=== PATIENT | female | born 1995 | race Caucasian/White ===

== ENCOUNTER 2019-09-13 14:58 | Emergency (ER) | payer OTHER, SELFPAY ==
--- NOTE | ~2019-09-13 | CT_ITS ---
EXAMINATION: CT abdomen pelvis w con DATE: 09/13/2019 16:24 INDICATION: Left lower quadrant abdominal pain, nausea, diarrhea TECHNIQUE: Computed tomography (CT) of the abdomen and pelvis was performed with 100 cc Omnipaque 350 intravenous contrast. Automated exposure control and iterative reconstruction technique were employe d. Exam dose: 1568.25 mGy-cm total exam DLP. COMPARISON: None. FINDINGS: The lung bases are clear of infiltrate or consolidation. Normal heart size. No pericardial or pleural effusion. The liver, spleen, pancreas, and adrenal glands and kidneys appear normal. The gallbladder is present . No bile duct or pancreatic duct dilatation. No urinary tract calculus or hydroureteronephrosis is e vident. The urinary bladder, uterus and adnexal areas are unremarkable. Normal caliber of the abdominal aorta. No intraperitoneal or retroperitoneal or pelvic mass lesion or adenopathy or ascites. Normal appendix. No bowel obstruction or intraperitoneal free air. No bowel wall thickening or pneuma tosis. Small fat-containing umbilical hernia. Included skeletal structures are unremarkable. IMPRESSION: No significant abnormality. Normal appendix. Reviewed, dictated and finalized at [facility]. Reviewed, dictated and finalized at [facility].
[2019-09-13 15:05] VITALS: BP 148/91; PULSE 86; RESP 18; TEMP 36.8; O2SAT 100
[2019-09-13 15:24] LABS: Basophils Percent Auto 0.3 % (0.2-1.2); Eosinophils Absolute Auto 0.2 K/mm3 (0-0.3); Eosinophils Percent Auto 1.3 % (0-4.4); Hemoglobin 15.7 g/dL (12.0-15.0); Immature Granulocyte Absolute 0.08 K/mm3 (0.00-0.031); Immature Granulocyte Percent A 0.7 % (0-0.5); Lymphocytes Absolute Auto 2.79 K/mm3 (0.9-3.2); Mean Corpuscular HGB Conc 33.4 g/dl (32-36); Mean Corpuscular Hemoglobin 28.6 pg (26-34); Mean Corpuscular Volume 85.6 fl (80-100); Mean Platelet Volume 9.8 fl (7.4-10.4); Monocytes Absolute Auto 0.7 K/mm3 (0.1-0.6); Monocytes Percent Auto 5.5 % (2.6-8.5); Neutrophils Absolute Auto 8.4 K/mm3 (1.3-6.7); Neutrophils Percent Auto 69.2 % (45.5-73.1); Platelet Count Result 359 k/mm3 (150-375); Red Blood Count 5.49 M/mm3 (4.2-5.4); Red Cell Distribution Width 12.8 % (11.5-14.5); White Blood Count 12.1 K/mm3 (4.5-10.0)
--- NOTE | 2019-09-13 15:28 | ED.ABDPAIN ---
HPI - Abdominal Pain General Chief Complaint: Abdominal Pain Stated Complaint: abd pain Time Seen by Provider: 09/13/19 15:11 Source: patient Mode of arrival: ambulatory Limitations: no limitations History of Present Illness HPI narrative: THis patient is a 24 year old female who presents for evaluation of left lower abdominal pain. She developed pain yesterday. She states her pain occurs in waves and it is located left upper and left lower abdomen. She has tried taking tylenol and midol without improvement. Currently her pain is 4/10. She has associated nausea and diarrhea. She has had 5 episodes of watery , nonbloody diarrhea since this morning. She denies fever or chills. She denies urinary symptoms. She does have lightheadedness. MD elicited complaint: abdominal pain Related Data Allergies Allergy/AdvReac Type Severity Reaction Status Date / Time No Known Allergies Allergy Verified 09/13/19 15:12 Review of Systems Review of Systems: All systems reviewed & are unremarkable except as noted in HPI and below Constitutional: Constitutional: Denies chills, Denies fever(s) and Reports weakness Gastrointestinal: Gastrointestinal: Reports abdominal pain, Reports diarrhea and Reports nausea Genitourinary: Genitourinary: Denies hematuria, Denies dysuria and Denies urinary incontinence Endocrine: Endocrine: Reports fatigue PMFSH Past Medical History Medical History (Updated 09/13/19 @ 17:53 by Nelli Fuentes MD) PCOS (polycystic ovarian syndrome) Surgical History Surgical History (Updated 09/13/19 @ 15:30 by Nelli Fuentes MD) No significant past surgical history Social History Social History (Updated 09/13/19 @ 15:30 by Nelli Fuentes MD) Smoking packs per day: 0.5 Smoking cigarettes per day: 10.0 Smoking status: Current every day smoker Alcohol intake: current Alcohol use details: socially Substance use type: marijuana Exam Narrative: Exam Narrative: GENERAL: Well-appearing, well-nourished, and in no acute distress. HEAD: Normocephalic, atraumatic EYES: PERRLA and EOMI, conjunctiva clear without discharge NECK: Supple, without lymphadenopathy or mass RESPIRATORY: No respiratory distress, Airway patent, Respirations non-labored, Clear to auscultation without rales, rhonchi or wheeze HEART: Regular rate and rhythm. No murmur heard. Normal peripheral pulses. ABDOMEN: Soft, TTP left lower abdominal pain, nondistended, normal active bowel sounds. No masses. No rebound or guarding, No organomegaly. EXTREMITIES: No edema, normal strength with full range of motion. SKIN: Warm, dry, normal color without rash NEURO: Alert and oriented x3. CN 2-12 grossly intact. No focal deficits. PSYCH: Normal mood and affect. Course Vital Signs Vital signs: Vital Signs Temperature 98.3 F 09/13/19 15:05 Pulse Rate 86 09/13/19 15:05 Respiratory Rate 18 09/13/19 15:05 Blood Pressure 148/91 H 09/13/19 15:05 Pulse Oximetry 100 09/13/19 15:05 Temperature 98.3 F 09/13/19 15:05 Pulse Rate 88 09/13/19 18:17 Respiratory Rate 18 09/13/19 18:17 Blood Pressure 114/74 09/13/19 18:17 Pulse Oximetry 100 09/13/19 15:05 MDM - Abdominal Pain Lab Data Attestation: I reviewed the patient's lab results. Result diagrams: 09/13/19 15:11 09/13/19 15:11 Labs: Lab Results 09/13/19 09/13/19 09/13/19 Range/Units 15:11 15:11 15:11 WBC 12.1 H (4.5-10.0) K/mm3 RBC 5.49 H (4.2-5.4) M/mm3 Hgb 15.7 H (12.0-15.0) g/dL Hct 47.0 (37.0-47.0) % MCV 85.6 (80-100) fl MCH 28.6 (26-34) pg MCHC 33.4 (32-36) g/dl RDW 12.8 (11.5-14.5) % Plt Count 359 (150-375) k/mm3 MPV 9.8 (7.4-10.4) fl Immature Gran % (Auto) 0.7 H (0-0.5) % Neut % (Auto) 69.2 (45.5-73.1) % Lymph % (Auto) 23.0 (18.3-44.2) % [place] % (Auto) 5.5 (2.6-8.5) % Eos % (Auto) 1.3 (0-4.4) % Baso % (Auto) 0
[2019-09-13 15:29] LABS: Add Urine Microscopic? YES; Amorphous Sediment Urine Few; Appearance Urine Cloudy (Clear); Bacteria Urine Trace /hpf; Bilirubin Urine Negative (Negative); Blood Urine 2+ (Negative); Color Urine Yellow (Yellow); Glucose Urine UA Negative (Negative); Ketones Urine Negative (Negative); Leukocyte Esterase Ur Negative LEU/UL (Negative); Mucus Urine Rare /lpf; Nitrate Urine Negative (Negative); Protein Urine Negative (Negative); Squamous Epithelial Cell Urine Many /hpf (Few); Urobilinogen Urine Negative mg/dL (<2.0)
[2019-09-13 15:36] LABS: Alanine Aminotransferase 50 U/L (4-35); Albumin Level 4.8 g/dL (3.5-5.1); Alkaline Phosphatase 104 U/L (38-126); Aspartate Amino Transferase 32 U/L (14-36); Bilirubin,Total 0.5 mg/dL (0.2-1.3); Blood Urea Nitrogen 13 mg/dL (7-17); Calcium 9.7 mg/dL (8.4-10.2); Carbon Dioxide 29 mmol/L (22-30); Chloride 101 mmol/L (98-107); Estimated CRCL calculation 143 ml/min; Estimated Glomerular Filt Rate > 60; Glucose 95 mg/dL (65-105); Lipase 93 U/L (23-300); Potassium 3.9 mmol/L (3.4-5.0); Sodium 138 mmol/L (137-145)
[2019-09-13] MEDS: SODIUM CHLORIDE 0.9% IV 1,000 ML 999 ML IV CONT (15:40)
[2019-09-13] MEDS: ONDANSETRON INJ 4 MG/2 ML VIAL IV PUSH (15:40)
[2019-09-13 16:10] VITALS: BP 118/65; PULSE 69
[2019-09-13 16:11] VITALS: BP 122/67; PULSE 69
[2019-09-13 16:12] VITALS: BP 119/72; PULSE 74
[2019-09-13 17:13] VITALS: BP 155/65; PULSE 91
[2019-09-13 18:17] VITALS: BP 114/74; PULSE 88; RESP 18
== END 2019-09-13 18:18 | disposition home or self-care (01) ==
PROVIDERS: Emergency Provider General Practice
DX: R10.32 Left lower quadrant pain (principal); R19.7 Diarrhea, unspecified; F17.210 Nicotine dependence, cigarettes, uncomplicated
CPT/HCPCS: 36415; 74177; 80053; 81001; 81025; 83690; 85025; 96361; 96374; 99284; J2405; J7030; Q9967

== ENCOUNTER 2024-08-28 15:37 | Emergency (ER) | payer OTHER, SELFPAY ==
[2024-08-28 15:39] VITALS: BP 144/87; PULSE 93; RESP 16; TEMP 36.6; O2SAT 98
--- OUTSIDE RECORDS SUMMARY | 2024-08-28 15:40 | XMS_ITS | Patient Health Record ---
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 G47.00) 03/08/2024 ADHD (attention deficit hyperactivity disorder) (ICD-10 - F90.9) 01/28/2024 Insomnia (ICD-10 - G47.00) 11/26/2023 Nutritional counseling (ICD-10 - Z71.3) 12/23/2023 Insomnia (ICD-10 - G47.00) 10/28/2023 Insomnia (ICD-10 - G47.00) 10/21/2023 Insomnia (ICD-10 - G47.00) 10/14/2023 Insomnia (ICD-10 - G47.00) 10/01/2023 Insomnia (ICD-10 - G47.00) 11/26/2023 Medication management (ICD-10 - Z79.899) Continue psychotherapy as scheduled. May self-administer medications or be administered own oral medications per [facility] protocols. Provided informed consent with understanding of side effects, adverse effects, risks and benefits as well as alternative treatments as previously discussed and with the above recommended medications & other aspects of the treatment program. Agrees to return sooner if symptoms worsen or suicidal or homicidal ideations occur. 01/28/2024 Nutritional counseling (ICD-10 - Z71.3) 12/23/2023 Nutritional counseling (ICD-10 - Z71.3) 03/29/2024 Nutritional counseling (ICD-10 - Z71.3) 05/17/2024 Screening for hyperlipidemia (ICD-10 - Z13.220) 06/23/2024 Medication management (ICD-10 - Z79.899) May self-administer medications or be administered own oral medications per [facility] protocols. Provided informed consent with understanding of side effects, adverse effects, risks and benefits as well as alternative treatments as previously discussed and with the above recommended medications & other aspects of the treatment program. Agrees to return sooner if symptoms worsen or suicidal or homicidal ideations occur. Continue psychotherapy as scheduled. May self-administer medications or be administered own oral medications per [facility] protocols. Provided informed consent with understanding of side effects, adverse effects, risks and benefits as well as alternative treatments as previously discussed and with the above recommended medications & other aspects of the treatment program. Agrees to return sooner if symptoms worsen or suicidal or homicidal ideations occur. Labs monitored by PCP. 05/17/2024 Exposure to potential infection (ICD-10 - Z20.9) 06/23/2024 Nutritional counseling (ICD-10 - Z71.3) 03/29/2024 Medication management (ICD-10 - Z79.899) Continue psychotherapy as scheduled. May self-administer medications or be administered own oral medications per [facility] protocols. Provided informed consent with understanding of side effects, adverse effects, risks and benefits as well as alternative treatments as previously discussed and with the above recommended medications & other aspects of the treatment program. Agrees to return sooner if symptoms worsen or suicidal or homicidal ideations occur. 01/28/2024 Medication management (ICD-10 - Z79.899) Continue psychotherapy as scheduled. May self-administer medications or be administered own oral medications per [facility] protocols. Provided informed consent with understanding of side effects, adverse effects, risks and benefits as well as alternative treatments as previously discussed and with the above recommended medications & other aspects of the treatment program. Agrees to return sooner if symptoms worsen or suicidal or homicidal ideations occur. 12/23/2023 Medication management (ICD-10 - Z79.899) Continue psychotherapy as scheduled. May self-administer medications or be administered own oral medications per [facility] protocols. Provided informed consent with understanding of side effects, adverse effects, risks and benefits as well as alternative treatments as previously discussed and with the above recommended medications & other aspects of the treatment program. Agrees to return sooner if symptoms worsen or suicidal or homicidal ideations occur. 05/17/2024 History of uterine cancer (ICD-10 - Z85.42) 05/17/2024 Cocaine use disorder (ICD-10 - F14.10) 09/10/2023 Other Continue psychotherapy as scheduled. May self-administer medications or be administered own oral medications per [facility] protocols. Provided informed consent with understanding of side effects, adverse effects, risks and benefits as well as alternative treatments as previously discussed and with the above recommended medications & other aspects of the treatment program. Agrees to return sooner if symptoms worsen or suicidal or homicidal ideations occur. 10/01/2023 Other Continue psychotherapy as scheduled. May self-administer medications or be administered own oral medications per [facility] protocols. Provided informed consent with understanding of side effects, adverse effects, risks and benefits as well as alternative treatments as previously discussed and with the above recommended medications & other aspects of the treatment program. Agrees to return sooner if symptoms worsen or suicidal or homicidal ideations occur. 10/28/2023 Other Continue psychotherapy as scheduled. May self-administer medications or be administered own oral medications per [facility] protocols. Provided informed consent with understanding of side effects, adverse effects, risks and benefits as well as alternative treatments as previously discussed and with the above recommended medications & other aspects of the treatment program. Agrees to return sooner if symptoms worsen or suicidal or homicidal ideations occur. 05/17/2024 Other Patient may self-administer their own medications or may self-administer their own oral medications per [facility] Protocol. Plan Of Treatment Future Test Test Name Order Date TSH Rfx on Abnormal to Free T4 1 Insurance Providers Payer Name Payer Address Payer Phone Subscriber Number Group Number Insured Name Patient Relationship to Insured Coverage Start Date [facility]age End [facility] [address] [place] [address] [phone] [id number] Hilaria Teixeira Self - patient is the insured 7 [facility] Att[facility] Claims Department [address] [place] [address] [phone] [id number] Hilaria Teixeira Self - patient is the insured 1 Medical (General) History Medical History History ICD Code obesity prediabetes dyslipidemia metabolic syndrome Mood disorder Bipolar seasonal allergies cancer-uterine Surgical History Surgery Date(Month/Year) hysterectomy 11/2022 Hospitalization History Reason Date(Month/Year) Child 04/2014
--- OUTSIDE RECORDS SUMMARY | 2024-08-28 15:40 | XMS_ITS | Data Portability ---
Author Organization [facility] [place] Address [address] [place] [address] Assessment Encounter Date Assessment Date Assessment LastModified by Organization Details LastModified Time 12/02/2022 12/02/2022 Today we discuss the following diagnosis: Hypothyroidism/D M2/Endometrial adenocarcinoma. Understanding verbalized Time spent in visit is a total of 45mins with at least 50% of visit consisting of counseling and review of plan of care. Not available 12/02/2022 14:21:16 09/02/2023 09/02/2023 Annual gynecological exam performed. Patient will come back in a year unless there are new symptoms. Wausa Weimi [place], [place] Not available 09/02/2023 15:51:01 Plan of Treatment Reminders Order Date Submit Date Provider Last Modified By Organization Details Last Modified Time Details Appointments [facility] 2024 10:00A BREANN Villasenor Not available Not available Not available Lab HbA1c (hemoglob in A1c), blood [address] (Lab), [address] [facility], [place], [address], 12/09/2023 12:34:57 TSH, serum or plasma [address] (Lab), [address] [facility], [place], [address], 10/30/2023 11:29:26 CMP, serum or plasma [address] (Lab), [address], [place], [address], 10/30/2023 11:29:25 lipid panel, blood [address] (Lab), [address], [place], [address], 10/30/2023 11:29:25 CBC w/ auto diff [address] (Lab), [address], [place], [address], 10/30/2023 11:29:25 test, urine [address], [address], [address], [place], [address], 11/26/2022 11:56:50 unlisted lab - 17-oh progester one, lc/MS/MS 2022 023 [facility] (Lab), [address] [facility], [place], [address], 11/27/2022 15:35:20 hormone panel, serum or plasma 2022 023 [facility] (Lab), [address] [facility], [place], [address], 11/27/2022 15:35:17 HbA1c (hemoglob in A1c), blood 2022 023 [facility] (Lab), [address] [facility], [place], [address], 11/27/2022 15:35:19 progester one, serum 2022 023 [facility] (Lab), [address] [facility], [place], [address], 11/27/2022 15:35:15 prolactin , serum 2022 023 [facility] (Lab), [address], [place], [address], 11/27/2022 15:35:15 testoster one free/test osterone total, ratio, serum 2022 023 [facility] (Lab), [address], [place], [address], 11/27/2022 15:35:19 TSH, serum or plasma 2022 023 [facility] (Lab), [address], [place], [address], 11/27/2022 15:35:16 vitamin B12 + folate, serum or blood 2022 023 [facility] (Lab), [address], [place], [address], 11/27/2022 15:35:19 iron + TIBC + ferritin, serum 2022 023 [facility] (Lab), [address], [place], [address], 11/27/2022 15:35:18 reticuloc yte count, auto, blood 2022 023 [facility] (Lab), [address], [place], [address], 11/27/2022 15:35:17 CBC w/ auto diff 2022 023 [facility] (Lab), [address], [place], [address], 11/27/2022 15:35:18 Referral primary care provider referral 2022 023 [email or web address] Niecy Barry MAGNETIC RESONANCE TECHNOLOGIST, [address], [place], [address], 04/08/2023 10:59:23 primary care provider referral 2022 023 [email or web address] Niecy Barry MAGNETIC RESONANCE TECHNOLOGIST, [address], [place], [address], 04/08/2023 10:59:24 gynecolog ic oncologis t referral 2022 023 [email or web address] Chris Herbert MD, [address] [facility], [address] [address], [place], [address], 04/08/2023 10:59:22 Procedures None recorded. Surgeries None recorded. Imaging US, pelvis 2022 023 [email or web address] [place], [address], [address], [place], [address], 11/20/2022 20:25:29 US, transvagi nal 2022 023 [email or web address] [place], [facility] [address], [place], [address], 11/20/2022 20:25:29 US, pelvis, complete 2022 023 [email or web address] [place], [facility] [address], [place], [address], 12/02/2022 12:53:44 Medication Orders metformin ER 500 mg tablet,ex tended release 24 hr [address] [facility], [address] [place], [address], 09/02/2023 15:27:39 levothyro xine 25 mcg tablet [address] [facility], [address] [place], [address], 09/02/2023 15:27:32 Patient TargetsNo targets recorded. Patient InstructionsNo instructions recorded. Reason for Referral Gynecologic Oncologist Refer ral for Adenocarcinoma of endometrium Referring Physician: Wendy Ferguson, [employer]STALLER, Encounter Date: 12/02/2022 Primary Care Provider Referr al for Type 2 diabetes mellitus Referring Physician: Wendy Ferguson [employer] INST[employer]ER, Encounter Date: 12/02/2022 Primary Care Provider Referr al for Hypothyroidism Referring Physician: Wendy Ferguson [employer] INSTALLER, Encounter Date: 12/02/2022 Results Created Date Observation Date Name Description Value Unit Range Abnormal Flag Note LastModifiedBy Organization Detail LastModifiedTime 11/20/19 23 11/19/2022 PROGE STERO NE progesterone 0.13 NG/mL This assay was perfo rmed using [employer] ratio n reage nts and test kits. Value s obtai dori with other assay metho ds or kits canno t be used inter luu eay . Femal e Proge stero ne Range s: Folli cular phase 0.06- 0.89 ng/mL Ovula tion phase 0.12- 12.00 ng/mL Lutea l phase 1.83- 23.90 ng/mL Postm enopa usal< 0.05- 0.13 ng/mL Healt hy Pregn ant Women 1st Trime ster1 1.0-4 4.30 2nd Trime ster2 5.40- 83.30 3rd Trime ster5 8.70- 214.0 0 Not Available [facility] (Lab) [address] [place], [address], 11/27/2022 15:35:15 11/20/19 23 11/19/2022 PROLA CTIN prolactin, total 10.90 NG/mL 4.79-2 3.30 This assay was perfo rmed using [employer] ratio n reage nts and test kits. Value s obtai dori with other assay metho ds or kits canno t be used inter luu eay . Not Available [facility] (Lab) [address] [place], [address], 11/27/2022 15:35:15 11/20/19 23 11/19/2022 TSH, REFLE X FREE T4 TSH 6.66 uIU/m L 0.30-5 .33 high Not Available [facility] (Lab) [address] [place], [address], 11/27/2022 15:35:16 11/20/19 23 11/19/2022 FSH, LH, ESTRA DIOL estradiol 34.7 pg/mL This assay was perfo rmed using [employer] ratio n reage nts and test kits. Value s obtai dori with other assay metho ds or kits canno t be used inter luu eably . Femal e Estra diol Range s: Folli cular phase 12.4- 233 pg/mL Ovula tion phase 41.0- 398 pg/mL Lutea l phase 22.3- 341 pg/mL Postm enopa usal< 5-138 pg/mL Healt hy Pregn ant Women 1st Trime ster1 54-32 43 pg/mL 2nd Trime ster1 561-2 1280 pg/mL 3rd Trime ster8 525-> 34505 pg/mL Not Available [facility] (Lab) [address] [place], [address], 11/27/2022 15:35:17 11/20/19 23 11/19/2022 FSH, LH, ESTRA DIOL FSH 4.5 mIU/m L This assay was perfo rmed using [employer] ratio n reage nts and test kits. Value s obtai dori with other assay metho ds or kits canno t be used inter [facility] eay . Femal es Folli cular : 3.5-1 2.5 mIU/m L Ovula tion: 4.7-2 1.5 mIU/m L Lutea l: 1.7-7 .7 mIU/m L Postm enopa use: 25.8- 134.8 mIU/m L Not Available [facility] (Lab) [address] [place], [address], 11/27/2022 15:35:17 11/20/19 23 11/19/2022 FSH, LH, ESTRA DIOL LH 7.6 mIU/m L This assay was perfo rmed using [employer] ratio n reage nts and test kits. Value s obtai dori with other assay metho ds or kits canno t be used inter luu eably . Femal es Mid-F ollic ular: 2.4-1 2.6 mIU/m L Mid-C ycle: 14.0- 95.6 mIU/m L Mid-L uteal : 1.0-1 1.4 mIU/m L Postm enopa use: 7.7-5 8.5 mIU/m L Not Available [facility] (Lab) [address] [facility], [place], [address], 11/27/2022 15:35:17 11/20/19 23 11/19/2022 RETIC ULOCY TE COUNT reticulocyte count percent 3.90 % 0.50-1 .50 high Not Available [facility] (Lab) [address] [facility], [place], [address], 11/27/2022 15:35:17 11/20/19 23 11/19/2022 RETIC ULOCY TE COUNT reticulocyte count absolute 158.20 10'3/ uL 23.2-7 0.7 high Not Available [facility] (Lab) [address] [facility], [place], [address], 11/27/2022 15:35:17 11/20/19 23 11/19/2022 CBC W/DIF F WBC 9.4 10'3/ uL 3.6-10 .2 Not Available [facility] (Lab) [address] [facility], [place], [address], 11/27/2022 15:35:18 11/20/19 23 11/19/2022 CBC W/DIF F RBC 4.11 10'6/ uL (based on docume nted legal sex) 4.10-5 .30 Not Available [facility] (Lab) [address] [facility], [place], [address], 11/27/2022 15:35:18 11/20/19 23 11/19/2022 CBC W/DIF F HGB 11.8 g/dL (based on docume nted legal sex) 11.9-1 5.8 low Not Available [facility] (Lab) [address], [place], [address], 11/27/2022 15:35:18 11/20/19 23 11/19/2022 CBC W/DIF F HCT 36.7 % (based on docume nted legal sex) 37.4-4 8.3 low Not Available [facility] (Lab) [address], [place], [address], 11/27/2022 15:35:18 11/20/19 23 11/19/2022 CBC W/DIF F MCV 89.3 fL 82.0-9 9.0 Not Available [facility] (Lab) [address], [place], [address], 11/27/2022 15:35:18 11/20/19 23 11/19/2022 CBC W/DIF F MCH 28.7 pg 27.0-3 3.0 Not Available [facility] (Lab) [address], [place], [address], 11/27/2022 15:35:18 11/20/19 23 11/19/2022 CBC W/DIF F MCHC 32.2 g/dL 32.0-3 6.0 Not Available [facility] (Lab) [address], [place], [address], 11/27/2022 15:35:18 11/20/19 23 11/19/2022 CBC W/DIF F RDW 13.2 % 11.0-1 5.0 Not Available [facility] (Lab) [address], [place], [address], 11/27/2022 15:35:18 11/20/19 23 11/19/2022 CBC W/DIF F plt 345 10'3/ uL 150-45 0 Not Available [facility] (Lab) [address], [place], [address], 11/27/2022 15:35:18 11/20/19 23 11/19/2022 CBC W/DIF F MPV 10.3 fL 9.8-12 .7 Not Available [facility] (Lab) [address], [place], [address], 11/27/2022 15:35:18 11/20/19 23 11/19/2022 CBC W/DIF F NRBC's 0.0 % 0 Not Available [facility] (Lab) [address], [place], [address], 11/27/2022 15:35:18 11/20/19 23 11/19/2022 CBC W/DIF F absolute NRBCs 0.0 10'3/ uL 0 Not Available [facility] (Lab) [address], [place], [address], 11/27/2022 15:35:18 11/20/19 23 11/19/2022 CBC W/DIF F neutrophils 64.4 % 37.0-7 2.0 Not Available [facility] (Lab) [address], [place], [address], 11/27/2022 15:35:18 11/20/19 23 11/19/2022 CBC W/DIF F lymphocytes 26.8 % 16.0-4 8.0 Not Available [facility] (Lab) [address], [place], [address], 11/27/2022 15:35:18 11/20/19 23 11/19/2022 CBC W/DIF F monocytes 5.0 % 4.0-14 .0 Not Available [facility] (Lab) [address], [place], [address], 11/27/2022 15:35:18 11/20/19 23 11/19/2022 CBC W/DIF F eosinophils 1.9 % 0.0-9. 0 Not Available [facility] (Lab) [address], [place], [address], 11/27/2022 15:35:18 11/20/19 23 11/19/2022 CBC W/DIF F basophils 0.4 % 0.0-2. 0 Not Available [facility] (Lab) [address] [facility], [place], [address], 11/27/2022 15:35:18 11/20/19 23 11/19/2022 CBC W/DIF F immature granulocytes 1.5 % no define d refere nce range Not Available [facility] (Lab) [address] [facility], [place], [address], 11/27/2022 15:35:18 11/20/19 23 11/19/2022 CBC W/DIF F absolute neutrophils 6.1 10'3/ uL 1.1-6. 0 high Not Available [facility] (Lab) [address] [facility], [place], [address], 11/27/2022 15:35:18 11/20/19 23 11/19/2022 CBC W/DIF F absolute lymphocytes 2.5 10'3/ uL 0.7-3. 4 Not Available [facility] (Lab) [address] [facility], [place], [address], 11/27/2022 15:35:18 11/20/19 23 11/19/2022 CBC W/DIF F absolute monocytes 0.5 10'3/ uL 0.3-1. 0 Not Available [facility] (Lab) [address] [facility], [place], [address], 11/27/2022 15:35:18 11/20/19 23 11/19/2022 CBC W/DIF F absolute eosinophils 0.2 10'3/ uL 0.0-0. 6 Not Available [facility] (Lab) [address] [facility], [place], [address], 11/27/2022 15:35:18 11/20/19 23 11/19/2022 CBC W/DIF F absolute basophils 0.0 10'3/ uL 0.0-0. 1 Not Available [facility] (Lab) [address] [facility], [place], [address], 11/27/2022 15:35:18 11/20/19 23 11/19/2022 CBC W/DIF F absolute immature granulocytes 0.1 10'3/ uL 0.00-0 .10 2022 1:59 AM: P indic ates parti al resul ts on a panel have been relea sed. Addit ional resul ts will follo w. 2022 1:59 AM: This resul t has been final verif ied. No addit ional or luu ed resul ts are expec nicola. Not Available [facility] (Lab) [address] [facility], [place], [address], 11/27/2022 15:35:18 11/20/19 23 11/19/2022 LEVON TIN / IRON / TRANS LEVON N / TIBC iron 66 ug/dL 40-170 Not Available [facility] (Lab) [address] [facility], [place], [address], 11/27/2022 15:35:18 11/20/19 23 11/19/2022 LVEON TIN / IRON / TRANS LEVON N / TIBC transferrin 282 mg/dL 200-36 0 Not Available [facility] (Lab) [address] [facility], [place], [address], 11/27/2022 15:35:18 11/20/19 23 11/19/2022 LEVON TIN / IRON / TRANS LEVON N / TIBC ferritin 65.3 NG/mL 8.0-25 2.0 Not Available [facility] (Lab) [address] [facility], [place], [address], 11/27/2022 15:35:18 11/20/19 23 11/19/2022 LEVON TIN / IRON / TRANS LEVON N / TIBC TIBC 395 ug/dL 250-45 0 Not Available [facility] (Lab) [address] [facility], [place], [address], 11/27/2022 15:35:18 11/20/19 23 11/19/2022 LEVON TIN / IRON / TRANS LEVON N / TIBC iron saturation 17 % 20-55 low Not Available [facility] (Lab) [address] [facility], [place], [address], 11/27/2022 15:35:18 11/20/19 23 11/19/2022 VITAM IN B12 / FOLAT E PANEL vitamin B12 354 pg/mL 180-91 4 Pam l Range : 180-9 14 pg/mL . Indet ermin ate Range : 145-1 80 pg/mL . Defic ient Range : <=145 pg/mL . Not Available [facility] (Lab) [address] [facility], [place], [address], 11/27/2022 15:35:18 11/20/19 23 11/19/2022 VITAM IN B12 / FOLAT E PANEL folate, serum 10.9 NG/mL 6.0-20 .0 Not Available [facility] (Lab) [address] [facility], [place], [address], 11/27/2022 15:35:18 11/20/1911/19/2022 HEMOG LOBIN A1C hemoglobin A1C 7.3 % 0-5.6 high The Ameri can Diabe anderson [employer] iatio n recom mends that a prima ry goal of thera py cassie tillman be a HBA1C of < 7% and that physi cians shoul d reeva luate the treat ment regim en in patie nts with HBA1C value s consi stent ly > 8%. <5.7% Pam l 5.7 - 6.4% Incre ased risk for diabe anderson >=6.5 % Diagn ostic of diabe anderson <7.0% Goal of thera py >8.0% Actio n sugge sted Not Available [facility] (Lab) [address] [facility], [place], [address], 11/27/2022 15:35:19 11/20/19 11/19/2022 TESTO STERO NE, FREE( DIALY SIS) AND TOTAL (LC/M S/MS) testosterone , total 26 NG/dL 2-45 For addit ional cindi chavez refer to http: //brandon jaramillo stdia ana ics.c om/fa q/Tot Miguel Schultz CMSMS (This link is being provi ded for infor pavelarsenio nal/ educa cori l purpo ses only. ) This test was devel oped and its shari tical perfo rmanc e jens cteri stics have been deter mined by [employer] ostic [employer]. It has not been clear ed or appro john by the FDA. This assay has been valid ated pursu ant to the CLIA regul ation s and is used for clini sourav purpo ses. Not Available [facility] (Lab) [address] [facility], [place], [address], 11/27/2022 15:35:19 11/20/1911/19/2022 TESTO STERO NE, FREE( DIALY SIS) AND TOTAL (LC/M S/MS) testosterone , free 5.7 pg/mL 0.1-6. 4 This test was devel oped and its shari tical perfo rmanc e jens cteri stics have been deter mined by [employer]stic [employer]. It has not been clear ed or appro john by the FDA. This assay has been valid ated pursu ant to the CLIA regul ation s and is used for clini sourav purpo ses. Perfo rming Organ izati on Isabell zhaoarsenio n: Site ID: [id number] Name: [employer] ostic s-Sur[facility] [address] [facility] Addre ss: [id number] [place] [address] Direc tor: Kalina luo M.D. Not Available [facility] (Lab) [address] [place], [address], 11/27/2022 15:35:19 11/20/19 23 11/19/2022 17-OH PROGE STERO NE 17-hydroxypr ogesterone, lc/MS/MS 41 NG/dL Adult Femal e Refer ence Range s for 17-Hy droxy proge stero ne: Pre-M enopa usal Mid Folli cular : 23-10 2 ng/dL Pre-M enopa usal Surge : 67-34 9 ng/dL Pre-M enopa usal Mid Lutea l: 139-4 31 ng/dL Postm enopa usal Phase : < or = 45 ng/dL Pregn coty: First Trime ster: 78-45 7 ng/dL Secon d Trime ster: 90-35 7 ng/dL Third Trime ster: 144-5 78 ng/dL This test was devel oped and its shari tical perfo rmanc e jens cteri stics have been deter mined by [facility] Tanana Capmykel tran . It has not been clear ed or appro john by FDA. This assay has been valid ated pursu ant to the CLIA regul ation s and is used for clini sourav purpo ses. Perfo rming Organ izati on Infor matio n: Site ID: [id number] Name: [facility] dominique [facility] , Addre ss: [id number] [facility] [place] [phone] Direc tor: Veronica koenig MD,Ph D,WILLIAM Not Available [facility] (Lab) [address] [facility], [place], [address], 11/27/2022 15:35:20 11/20/19 23 11/19/2022 pregn coty test, urine HCG negati ve Not Available [place] [address], [place], [address], 11/19/2022 14:48:22 11/27/19 23 11/26/2022 SURGI SOURAV PATHO LOGY surgical pathology SEE RESULT S BELOW CASE REPOR T: Surgi sourav Patho logy Repor t Case: [id number] Autho julissa feldman Provi justo: Fredrick Diaz Colle cted: 11/26 1626 [employer] RES[employer]ANCE TECHNOLOGIST Order ing Locat ion: [place] Patho log[facility] Recei john: 11/27 0258 Patho logis t: Cinthya Samuel MD Speci men: Luisa mckee, emb FINAL DIAGN OSIS: Endorafi inman m, biops y: -Endo metri al adeno carci noma, endom etrio id type, 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 Elect ale brennan eliecer d by Cinthya Samuel MD on at 2:04 PM ----- ----- ----- ----- ----- ----- ----- ----- ----- ----- ----- ----- ----- ----- ----- ----- ----- ---- COMMAlex NT: The case was revie wed with robbin seo of the depar tment who agree s with the above inter preta tion. The resul ts were commu nicat ed to Fredrick miramontes' s offic e on at 1:50 PM. SYNOP TIC REPOR TS: Gynec ologi c Bioma rker Repor ting Templ ate GYNEC OLOGI C BIOMA RKER REPOR TING TEMPL ATE - All Speci mens Valery col poste d: 2022 TEST( S) PERFO RMED Speci men Type: Biops y / curet tage Appro priat e Contr ols Verif ied: Yes Estro gen Sign Maintenance tor (ER) Statu s: Posit vaibhav Perce ntage of Cells with Nucle ar Posit ivity : 100 % [place] ge Inten sity of Stain ing: Stron g Proge stero ne Sign Maintenance tor (PgR) Statu s: Posit vaibhav Perce ntage of Cells with Nucle ar Posit ivity : 100 % [place] ge Inten sity of Stain ing: Stron g Misma tch Repai r (MMR) Prote in Statu s: Nucle ar MLH1 Expre ssion : Intac t Misma tch Repai r (MMR) Prote in Statu s: Nucle ar PMS2 Expre ssion : Intac t Misma tch Repai r (MMR) Prote in Statu s: Nucle ar MSH2 Expre ssion : Intac t Misma tch Repai r (MMR) Prote in Statu s: Nucle ar MSH6 Expre ssion : Intac t Misma tch Repai r (MMR) Prote in Statu s: Backg round non-n eopla stic tissu e / inter nal contr ol shows intac t nucle ar expre ssion Immun ohist ochem istry (IHC) Inter preta tion for Misma tch Repai r (MMR) Prote ins: No loss of nucle ar expre ssion of MMR prote ins: low proba bilit y of micro satel lite insta bilit y-hig h (MSI- H) pheno type CLINI SOURAV INFOR MATIO N: Abnor mal findi ngs on diagn ostic imagi ng of other speci fied body struc tures MICRO SCOPI C DESCR IPTIO N: A micro scopi c exami natio n was perfo rmed. This test was devel oped and its perfo rmanc e jens cteri stics deter mined by [facility]. It has not been clear ed or appro john by the U. S. Food and Drug Admin istra tion. The FDA has deter mined that such clear ance or appro sunitha is not neces trever. This test may be used for clini sourav purpo se. It shoul d not be regar ded as inves tigat ional or for resea rch. This labor atory is certi fied under the Clini sourav Labor atory Impro vemen t Amend ments of 1987 (CLIA ) as quali fied to perfo rm high compl exity clini sourav labor atory testi ng. In cases which have decal cifie d tissu es, the resul ts shoul d be inter prete d with cauti on given the possi bilit y of false negat jatin. The posit vaibhav contr ols demon strat e appro priat e posit vaibhav stain ing. The known tissu e negat vaibhav contr ols are negat vaibhav. The non-i mmune serum contr ol was non-r eacti ve. GROSS DESCR IPTIO N: A. Endom etriu m. The speci men is label ed with the patie nt's name, patrick petersen cs and EMB . Recei john in forma dana is a 3.0 x 3.0 x 0.2 [address] of soft, red-t an tissu e. The entir e speci men is submi tted in 2 casse ttes. Gross ed by Valerio chase Not Available [facility] (Lab) [address], [place], [address], 12/02/2022 15:26:43 11/27/19 23 11/26/2022 IMAGE GUIDE D PAP, REFLE X HPV IF ASCUS ONLY image guided Pap, reflex HPV ASCUS only SEE RESULT S BELOW abnormal CASE REPOR T: Cytol ogy Gynec ologi sourav Repor t Case: [id number] Autho julissa feldman Provi justo: Fredrick Diaz Colle cted: 11/26 1626 MAGNETIC RESONANCE TECHNOLOGIST Order ing Locat ion: [place] Patho [place]y Recei john: 11/27 0832 First Scree n: Miesha Fabian, CT Patho logis t: Sam [address], MD Speci men: Scree emily Pap - Image d, Cervi x STATE MENT OF ADEQU ACY: Satis facto ry for evalu ation Trans forma tion zone compo nent prese nt FINAL DIAGN OSIS: Epith elial Cell Abnor malit y, Gland ular Cell: Atypi sourav gland ular cells , not other gonzalez speci fied (NOS) . Elect ale gonzáles d by Sam [address] rd, MD on 2022 at 10:42 AM ----- ----- ----- ----- ----- ----- ----- ----- ----- ----- ----- ----- ----- ----- ----- ----- ----- ---- HPV RESUL TS: HPV mRNA E6/E7 : No HPV mRNA Detec nicola NOTE: This high risk HPV mRNA assay detec ts fourt een high- risk HPV types (16, 18, 31, 33, 35, 39, 45, 51, 52, 56, 58, 59, 66, 68) witho ut diffe renti ation . COMME NT: This speci men was revie wed by a Cytot echno logis t and/o r Patho logis t (as indic ated in this repor t) after evalu ation using the Thinp rep Imagi ng Syste m. CLINI SOURAV INFOR MATIO N: Menst rual Statu s: LMP (if appli cable ): Clini sourav Histo ry/Pr eviou s Pap: Type of Neopl mary (if appli cable ): Signi fican t Clini sourav Findi ngs: Other Histo ry: Hormo cristin (if appli cable ): SUGARABELLA STED FOLLO W-UP: Follo w up as warra nted, based on curre nt guide lines and indiv idual patie nt consi derat ions. Not Available [facility] (Lab) [address], [place], [address], 12/02/2022 15:26:44 11/27/19 23 11/26/2022 pregn coty test, urine HCG negati ve Not Available [facility] [address], [place], [id number], 11/26/2022 11:41:07 11/21/19 23 11/20/2022 [place], pelvi s No observ ation record ed. [email or web address] [place] [address] B, [place], [address], 11/20/2022 14:10:09 11/21/19 23 11/20/2022 US, trans vagin al No observ ation record ed. [email or web address] [place] [address], [place], [address], 11/20/2022 14:10:00 11/21/19 23 11/20/2022 US, pelvi s No observ ation record ed. [email or web address] [address], [place], [address], 11/25/2022 11:48:13 Result Notes None recorded. Problems Name Problem SNOMED Code Status Onset Date Resolution Date Notes Provider Name and Address Organization Details Recorded Time Finding of menstrua l bleeding Completed 201807/20/2020 Oligomen orrhea, unspecif ied;Tirso rded Elsewher e: No Locat ion: [facility] S ource: EHR Equine Pharmacology Technician suraj: N Practi ce ID: [id number] James lable Time: 11:00:00 AM [facility] 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 3 10:37:26 Type 2 diabetes mellitus 51466311 Active 2022 Wendy Ferguson [facility]- [address], [place], [address], [facility] 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 3 10:37:51 Obesity 525052815 Active 2022 Wendy Ferguson [facility] [address], [place], [address], [facility] 10:38:00 Problem Notes None recorded. Procedures Surgical History Date Name Laterality Status Provider Name and Address Organization Details Recorded Time 12/11/19 Partial Hysterectomy completed Emy Berumen [facility] 09/02/2023 15:29:45 11/27/19 Endometrial Biopsy completed Wendy Ferguson [facility] [address], [place], [address], [facility] 11/26/2022 11:56:38 11/27/19 Date of Last Pap Smear completed Emy Berumen [facility] 09/02/2023 15:28:17 Imaging Results None recorded. Procedure Notes None recorded. Medical Equipment None Reported. Allergies No known drug allergies Medications Name Sig Start Date Stop Date Status Note LastModified by Organization Details LastModified Time amoxicillin 500 mg capsule 10/12 completed Not Available Not Available Not Available metformin 500 mg tablet TAKE 1 TABLET BY MOUTH THREE TIMES DAILY 11/19 completed Not Available Not Available Not Available Concerta 18 mg tablet,exten ded release TAKE 1 TABLET BY MOUTH ONCE DAILY IN THE MORNING 11/19 completed Not Available Not Available Not Available cetirizine 10 mg tablet TAKE 1 TABLET BY MOUTH ONCE DAILY 11/19 completed Not Available Not Available Not Available ibuprofen 800 mg tablet 10/12 completed Not Available Not Available Not Available ondansetron HCl 8 mg tablet 10/12 completed Not Available Not Available Not Available prednisone 20 mg tablet TAKE 2 TABLETS BY MOUTH ONCE DAILY FOR 4 DAYS. TAKE WITH FOOD. DO NOT TAKE WITH ASPIRIN OR NSAIDS SUCH ALEVE, IBUPROFE N, ETC. 11/19 completed Not Available Not Available Not Available levothyroxin e 25 mcg tablet TAKE 1 TABLET BY MOUTH ONCE DAILY BEFORE MEAL(S) FOR 30 DAYS 09/01 completed Not Available Not Available Not Available meclizine 25 mg tablet TAKE 1 TABLET BY MOUTH THREE TIMES DAILY NEEDED 11/19 completed Not Available Not Available Not Available benzonatate 100 mg capsule TAKE 1 CAPSULE BY MOUTH EVERY 8 HOURS NEEDED 11/19 completed Not Available Not Available Not Available ergocalcifer ol (vitamin D2) 1,250 mcg (50,000 unit) capsule 11/19 completed Not Available Not Available Not Available albuterol sulfate HFA 90 mcg/actuatio n aerosol inhaler INHALE 2 PUFFS BY MOUTH EVERY 4 HOURS NEEDED 11/19 completed Not Available Not Available Not Available metformin ER 500 mg tablet,exten ded release 24 hr TAKE 1 TABLET BY MOUTH ONCE DAILY WITH SUPPER FOR 30 DAYS 09/01 completed Not Available Not Available Not Available sertraline 50 mg tablet TAKE 1 TABLET BY MOUTH ONCE DAILY 11/19 completed Not Available Not Available Not Available dicyclomine 10 mg capsule 10/12 completed Not Available Not Available Not Available oxycodone 5 mg tablet TAKE 1 TABLET BY MOUTH EVERY 6 HOURS NEEDED FOR PAIN 09/01 completed Not Available Not Available Not Available quetiapine 50 mg tablet TAKE 1 TABLET BY MOUTH ONCE DAILY 11/19 completed Not Available Not Available Not Available Lo Loestrin Fe 1 mg-10 mcg (24)/10 mcg (2) tablet TAKE 1 TABLET BY MOUTH ONCE DAILY 11/19 completed Not Available Not Available Not Available Vitals Date Recorded Body height Body mass index (BMI) Body weight Systolic blood pressure Diastolic blood pressure Provider Name and Address Organization Details Last Updated DateTime 09/02/2023 162.56 cm 43.4 kg/m2 094587.8 7 g 145 mm[Hg] 83 mm[Hg] [facility] 15:27:13 Date Recorded Body height Body mass index (BMI) Body weight Systolic blood pressure Diastolic blood pressure Provider Name and Address Organization Details Last Updated DateTime 11/19/2022 162.56 cm 45.3 kg/m2 348603.3 9 g 126 mm[Hg] 82 mm[Hg] [facility] 11:34:20 Date Recorded Body height Body mass index (BMI) Body weight Systolic blood pressure Diastolic blood pressure Provider Name and Address Organization Details Last Updated DateTime 11/26/2022 162.56 cm 45 kg/m2 110060.2 g 128 mm[Hg] 85 mm[Hg] [facility] 11:40:07 Date Recorded Body height Body mass index (BMI) Body weight Systolic blood pressure Diastolic blood pressure Provider Name and Address Organization Details Last Updated DateTime 12/02/2022 162.56 cm 45.1 kg/m2 200271.7 9 g 107 mm[Hg] 69 mm[Hg] Emyefrain Cuevaser [facility] 3 10:09:39 Social History Question Answer Notes LastModified by [employer] Details LastModified Time Tobacco Smoking Status Current Every Day Smoker Lalita Mcghee samuel, [facility] 11/20/2022 12:24:38 Are You Blind Or Do You Have Difficulty Seeing? No Information n ot available 07/20/2020 In The 14 Days Before Symptom Onset, Have You Had Close Contact With A Laboratory-confirm ed COVID-19 While That Case Was Ill? No Information n ot available 07/20/2020 In The 14 Days Before Symptom Onset, Have You Had Close Contact With A Person Who Is Under Investigation For COVID-19 While That Person Was Ill? No Information not available 07/20/2020 Have You Been To An Area Known To Be High Risk For COVID-19? No Information not available 07/20/2020 Are You Deaf Or Do You Have Serious Difficulty Hearing? No Information not available 07/20/2020 What Type Of Diet Are You Following? REGULAR Information n ot available 07/20/2020 Do You Use Your Seat Belt Or Car Seat Routinely? Yes Information not available 07/20/2020 Do You Have Smoke And Carbon Monoxide Detectors In Your Home? Yes Information not available 07/20/2020 Do You Use Sunscreen Routinely? Yes Information not available 07/20/2020 Sex: Unknown Functional Status Question Answer Note LastModified by nChannelizat ion Details LastModified Time Are you able to walk? YESWOREST Information not available 07/20/2020 What is your exercise level? Occasional Information not available 07/20/2020 Mental Status Question Answer Note LastModified by Organization D etails LastModified Time Do you feel stressed (tense, restless, nervous, or anxious, or unable to sleep at night)? [id number] Information not available 07/20/2020 Family History Relationship Description Onset Age of this Age Resolved Age Notes LastModified by Organization Details LastModified Time Mother Polycystic ovary syndrome [email or web address] Not available 2019 10:09:35 Maternal Grandmother Polycystic ovary syndrome [email or web address] Not available 2019 10:09:35 Medical History Condition Response Other N Blood Transfusion N Dermatologic Disorders N Gestational Diabetes N Anxiety Disorder N Autoimmune disease N Arthritis N Polyps N Infertility N Acid Reflux (GERD) N Cancer Y Varicosities N Stroke N Neurologic/Epilepsy N Fibromyalgia N Headaches N Kidney Disease N Heart Problems N Kidney or Bladder Problems N Eating Disorder N Art (IVF or FET) N Hepatitis/Liver Disease N No Past Medical History N Urinary Tract Infection N Asthma N Trauma/Violence N Thrombophilias N Allergies (Food, seasonal, environmental ) N Breast Cancer N Drug/Latex Allergies/Reactions N Lung Disease N Defects or Inherited Disease N Breast Problem N Hematologic disorders N Anesthesia Complications N History of STI N Deep Vein Thrombosis N Polycystic ovary syndrome Y History of abnormal pap N Endometriosis N High Cholesterol N Thyroid Problems Y GI Problems N Anemia N Psychiatric Illness N Ovarian Cancer N Diabetes Y Pulmonary (TB, Asthma) N Eczema N Abuse/Domestic Violence N Depression/ depression N Heart Disease N Pre-Eclampsia N Hypertension N Osteoporosis N Gynecological History Statement/Question Response Flow Heavy Are cycles usually normal N Date of LMP 11/25/2022 Sexually Active? Y Menses Monthly N Was last menstrual period normal N STIs/STDs N Date of Last Pap Smear 11/26/2022 Sexual Problems? N Current Control Method Hysterectom y LMP Approximate Obstetrics History GPAL:G 1 P 1 0 0 1 Type Value Full Term 1 Living 1 Total 1 Past Encounters Encounter ID Performer Location Encounter Start Date Encounter Closed Date Diagnosis/Indication Diagnosis SNOMED-CT Code Diagnosis ICD10 Code Diagnosis Note [id number] Wendy Ferguson [facility] [address] [address] 10/13/2019 09:59:55 10/13/2019 10:40:45 Gynecologic examination 60592729 Z01.419 Take Calcium with Vitamin D 1200mg daily if not receiving in daily diet. It is strongly advised to have an annual flu shot and up can obtain at most pharmacies . If you have not had a TDap shot in the last 10 years you should obtain one as well. Discussed with patient & provided with informatio n regarding Gardisil vaccine to prevent the 4 strains for HPV that cause cervical cancer if under age 26. Encourage safe sexual practices, to use condoms and limit partners if not already in a monogamous relationsh ip. Do monthly self breast exams. Have mammogram yearly or every other year depending on family history. BRCA testing is now available for patients with strong genetic history of female cancer. If interested contact the office. Engage in daily exercise of low impact aerobic exercise 45-60 minutes 4-5 times weekly. Avoid tobacco and illicit drugs as well as using moderation with alcohol intake less than 1-2 8 oz beverages daily. This lifestyle behavior pattern will lead to less health conditions and longer life span. If BMI greater than 25 weight watchers or dietary consult advised. Patient received above instructio ns, and questions have been answered. If you have any questions please call or respond to this email. Patient was made aware of the patient portal and may obtain a paper copy of today's plan if desired. Polycystic ovary syndrome 574482068 E28.2 N92.6 Plan to restart metformin 500mg PO TID Contracept ion care management 511535711 Z30.9 Discussed all control options in great detail. Pt would like to start ocp. She is aware of the risks and benefits. She does not have any medical condition that is contraindi cated with the use of estrogen containing control. Pt will start her pills on the first thursday following the start of her period. She is aware it is not effective for control the first month. She is also aware of the importance of taking at the same time every day. Encouraged use of condoms as the pill does not protect against STD's. Will return in 3 months for med check. Consent was read and signed. Pt verbalized understand ing. Trial of Lo loestrin FE sent. Will call with results. She understand s that she is NOT to start this trial until she has heard from our office that blood HCG results are neg. RTO x 3mos med check [id number] Wendy Ferguson [facility] [address],[place] [address] 01/12/2020 14:36:35 01/12/2020 15:21:20 Polycystic ovary syndrome 966594775 E28.2 N92.6 Patient is here today for a medicaton check of control of lo loestrin FE & Metformin. She voices goals of therapy have been met with use of this therapy. She denies neg side effects with BC but some diarrhea with metformin TID. She is eating, drinking, sleeping well; moods are stable & periods are well regulated. Wishes to continue this method of BC. Appropriat e to continue this medication . Continue Lo loestrin FE. Decrease Metformin to BID so stomach can adjust. Then, if tolerating & no diarrhea can increase back to TID dosages. Time spent in visit is a total of 15 mins with at least 50% of visit consisting of counseling and review of plan of care. [id number] Wendy Ferguson [facility] [address],[place] [address] 11/19/2022 11:24:16 11/19/2022 11:53:53 Abnormal uterine bleeding [id number] 9100 N93.9 The patient and I discussed the various causes of abnormal uterine bleeding, including polyps, fibroids, hyperplasi a, atypia, anovulatio n, etc. We reviewed the typical evaluation with labs, pelvic US and possible endometria l biopsy. Briefly discussed the options available for treatment (depending on the results of evaluation ) such as hormonal treatment (OCPs, progestins ), Mirena, endometria l ablation, and surgery. We spent more than 30 minutes face to face. Anemia 446852499 D64.9 [id number] Darrion Amador MD [facility] [address],[place] [address] 11/20/2022 12:24:34 11/20/2022 13:12:42 Abnormal uterine bleeding 9491240018 9100 N93.9 [id number] Wendy Ferguson [facility] [address],[place] [address] 11/26/2022 11:29:00 11/26/2022 12:13:11 Screening procedure 00804799 Z13.9 Endometrium thickened 44 9522964 R93.89 N93.9 Here today for EMB/US reviewUnde rstanding verbalized US resultsDis cussed EMBx in relation to the thickened lining on US.Discuss ed procedure (see procedure notes)Cons ents signedWill reach out with results to decide next steps in plan of care. Time spent in visit is a total of 15 mins with at least 50% of visit consisting of counseling and review of plan of care not including time spent on procedure. [id number] Wendy Ferguson [facility] [address],[place] [address] 12/02/2022 10:00:31 12/02/2022 14:37:27 Hypothyroidism 65139994 E03.9 Will start on discussed therapy after counseled on hypothyroi dism/treat ment. Counseled on medication R/B's, Most common side effects, & use. All questions were answered to patient satisfacti on. Will refer to PCP who can then refer to Endocrinol ogy if needed moving forward. Type 2 lora betes mellitus 82261423 E11.9 E66.9 Treatment started after counseling on DM2/lifest yle/activi ty changes.Sm oking cessationW eight loss encouraged Will refer to PCP who can then refer to Endocrinol ogy if needed moving forward. Adenocarci noma of endometrium 608570046 C54.1 Discussed this indepth & importance of following up/treatme nt/managem ent.Sent home with additional educationa l materials as I have advised that this visit today there will be a lot of feelings/e motions which can make what we discuss difficult to comprehend .Reassured her that LEAD DATA ENTRY OPERATOR-ONC will also go through in depth.We will reach out with her appt/date/ time or [facility] ONC/LEAD DATA ENTRY OPERATOR will.If has not heard anything within the week please contact us as this needs to be addressed camron.Under standing verbalized . [id number] Wendy Ferguson [facility] [address],[place] [address] 09/02/2023 15:17:15 09/02/2023 15:59:49 Gynecologic examination 52177668 Z01.419 Take Calcium with Vitamin D 1200mg daily if not receiving in daily diet. It is strongly advised to have an annual flu shot and up can obtain at most pharmacies . If you have not had a TDap shot in the last 10 years you should obtain one as well. Discussed with patient & provided with informatio n regarding Gardisil vaccine to prevent the 4 strains for HPV that cause cervical cancer if under age 26. Encourage safe sexual practices, to use condoms and limit partners if not already in a monogamous relationsh ip. Do monthly self breast exams. Have mammogram yearly or every other year depending on family history. BRCA testing is now available for patients with strong genetic history of female cancer. If interested contact the office. Engage in daily exercise of low impact aerobic exercise 45-60 minutes 4-5 times weekly. Avoid tobacco and illicit drugs as well as using moderation with alcohol intake less than 1-2 8 oz beverages daily. This lifestyle behavior pattern will lead to less health conditions and longer life span. If BMI greater than 25 weight watchers or dietary consult advised. Patient received above instructio ns, and questions have been answered. If you have any questions please call or respond to this email. Patient was made aware of the patient portal and may obtain a paper copy of today's plan if desired.Pa p/hpv due 2024 vaginal swab post hysterecto my for uterine cancer. STD Screen declined Genetic Screen discussed Colon Screen na Dexa Screen na Routine Labs ordered ( has appt to [facility] with new PCP [place], [place]) Adult heal th examination 798139143 Z00.00 Type 2 lora betes mellitus 00458200 E11.9 E66.9 Might need to consider endocrinol ogy referral Hypothyroidism 66001747 E03.9 Chronic neck pain 360713 7632 107 G89.29 Large breasts despite weight loss contribute to life long upper neck/back pain.Would like to consider breast reduction moving forward as this issue greatly disrupts her quality of life and ability to be as active as she would like to be.She has tried physical therapies in the past but issues remained.B uys supportive bras--but still not entirely helpful.Ca n consider referral for consult breast reduction moving forward. History of malignant neoplasm of uterine body 210171645 Z85.42 Yearly check up with oncologist went wellNo concerns at this time.Dr. Maciej rubin Health Concerns Section Related Observation LastModified by Organization Detai ls LastModified Time None Recorded Concern Status LastModified by Organization Details LastModified Time None Recorded Advance Directives Directive None Recorded Payers Encounter Date Sequence Insurance Name Policy Number Policy Beltran Covered Member ID Beltran Member ID Guarantor Name 11/19/2022 1 [facility] ON OR AFTER 09/20/20 (MEDICAID REPLACEMENT - HMO) Hilaria Puneet [id number] Hilaria Puneet 11/20/2022 1 [facility] ON OR AFTER 09/20/20 (MEDICAID REPLACEMENT - HMO) Hilaria Puneet [id number] Hilaria Puneet 11/26/2022 1 [facility] ON OR AFTER 09/20/20 (MEDICAID REPLACEMENT - HMO) Hilaria Puneet [id number] Hilaria Puneet 12/02/2022 1 [facility] ON OR AFTER 09/20/20 (MEDICAID REPLACEMENT - HMO) Hilaria Puneet [id number] Hilaria Puneet 09/02/2023 1 [facility] ON OR AFTER 09/20/20 (MEDICAID REPLACEMENT - HMO) Hilaria Puneet [id number] Hilaria Puneet Notes Date Note Type Note Provider Name and Address Organization Details Recorded Time 11/19/2022 text/html Beer - Abnormal BleedingReported bypatient.Onset/Timin g:past 2 cycles; irregular; Cycles q3-6mos Hx PCOS SA + Does not use BC No changes in meds/health conditions AUB has since resolved over this week. Feels less energy than normal. Duration:>30d menses Quality:passing clots;heavy Severity:changing pad/tampon every 1-2 hours; requires double protection; interferes with daily activities Context:Hx PCOS/Oligomenorrhea Associated Symptoms:no dysmenorrhea; no pelvic pain; no abdominal pain; no dyspareunia; no anemia/iron supplements; no shortness of breath; no CP/palpitations;fatig ue;dizziness BREANN Lopes-[facility] [address], [place], [address], [facility] 11/19/2022 11:52:32 11/26/2022 text/html Here today for U S & EMB for AUB/Menorrhagia Wendy [facility] [address], [place], [address], [facility] 11/26/2022 11:58:51 12/02/2022 text/html Here today to di scuss multiple test results & discuss plan of care/referrals. Wendy Ferguson [facility] [address], [place], [address], [facility] 12/02/2022 14:21:23 09/02/2023 text/html Annual Malt Specifications Control Assistant Post-MenopausalReport ed bypatient.Menopausal Symptoms:no menopausal symptoms; normal vaginal lubrication Vaginal Bleeding:history of menopause having occurred; no history of post menopausal bleeding Urinary Symptoms:no hematuria; no incontinence; no nocturia; no urinary frequency Vulva:no genital lesion; no vulvar atrophy Vagina:normal vaginal discharge; no vaginal atrophy Breast:no breast lump; no nipple discharge; no breast pain Sexual Complaints:no sexual complaints Psychological Symptoms:no depression; no anxiety Preventive Measures:encourage regular mammograms starting age 40; encourage self breast examination; encourage regular exercise; encourage no tobacco use Wendy Ferguson [facility] [address], [place], [address], [facility] 09/02/2023 15:58:16 OBGyn Episode Ob Episode Information Episode Created Date Number of Fetuses Patient Bloodtype Patient rh Status Prepregnancy Weight lbs Domestic Partner Domestic Partner Phone Father Name Multimedia Engineer Status 10/13/19 20 1 CLOSED Fetus Data First Name Last Name Admitted to NICU Weight (g) Sex Living Outcome Pediatric Complications Fetus ID Race Codes Race Delivery Type 3600.15 [id number] Full Term 3098 Vaginal Delivery Roby Calculation Initial Roby Date Initial Exam Date Initial Exam Provider Initial Ultrasound Date Last Menstrual Period Date Ultra Sound Weeks Gestation 0 Eighteen To Twenty Week Roby Update Ultra Sound Date Fundal Height At Umbil Quickening Date Ultra Sound Latest Weeks Gestation Final Roby Confirmed By Final Roby Confirmed Date Final Roby Date Ultra Sound Latest Days Gestation 0 0 Menstrual History Last Menstrual Date Menses Monthly On Bcp Conception Prior Menses Frequency Hcg Plus Date Menarche Onset Age Delivery Information Delivery Date Delivery Type Labor Anesthesia Weeks Gestation Incision Type Labor Labor Length Hrs Delivered By Post Complications Tubal Sterilization Discharge Date Comments 5 44 false Discharge Information Feeding Method Contraceptive Method Maternal HG B and HCT Levels
--- OUTSIDE RECORDS SUMMARY | 2024-08-28 15:40 | XMS_ITS | Clinical Summary ---
Author Organization [facility] [employer] Address [address] [place] [address] Care Team Providers Care Mill Recorder Name Role Phone Smiley Camarillo DO Primary Care Provider [phone] Smiley Camarillo DO Unavailable [phone] Source Comments [facility],non-owned Affiliates and Associated Physician Practices is amultiple site organization consisting of ambulatory clinics and hospital sitesin [place], [place], [place] and [place]. This disclosure is being madepursuant to the Care Everywhere program and may not contain all information available regarding this patient. Last updated 17.[facility] Allergies No known active allergies Medications * Be aware that medications may not be up to date on this document. Alwaysverify current medications with the patient. albuterol HFA (Proventil; Ventolin; Proair) 108 (90 Base) MCG/ACT inhaler Inhale 2 (two) puffs by mouth every 4 hours as needed 2 Active levothyroxine (Synthroid) 25 MCG tablet Take 1 tablet every day by oral route before meals for 30 days. 3 Active metFORMIN ER 24hr (Glucophage XR) 500 MG tablet Take 1 tablet every day by oral route at dinner for 30 days. 3 Active oxyCODONE, immediate release, (Roxicodone) 5 MG tabletIndicatio ns:Endometrial cancer (HCC) Take 1 (one) tablet by mouth every 6 hours as needed for Pain 30 tablet Active Additional Information Patient not taking.Reported on 02/02/2023 Active Problems Problem Noted Date Diagnosed Date Adenocarcinoma of uterus 12/02/2022 023 Hypothyroidism 12/02/2022 12/04/2022 Obesity 12/02/2022 12/04/2022 Type 2 diabetes mellitus 12/02/2022 023 Polycystic ovary syndrome 09/17/20182022 Overview (12/04/2022): Polycystic ovarian syndrome;Recorded Elsewhere: No Location: [facility] Source: EHR Chronic: N Practice ID: [id number] Billable Time: 11:00:00 AM Polycystic ovarian syndrome;Recorded Elsewhere: No Location: [facility] Source: EHR Chronic: N Practice ID: [id number] Billable Time: 11:00:00 AM Social History Tobacco Use Types Packs/Day Years Used Date Smoking Tobacco: Former Cigarettes 0.5 11.7 2 - 11/2022 Tobacco Cessation:Counseling Given: Not Answered Alcohol Use Standard Drinks/Week Comments Not Currently 0 (1 standard drink = 0.6 oz pur e alcohol) AUDIT-C Answer Date Recorded Q1: How often do you have a drink containing alcohol? Never 01/27/2022 Q2: How many drinks containi ng alcohol do you have on a typical day when you are drinking? Patient does not drink Q3: How often do you have si x or more drinks on one occasion? Never 01/27/2022 Comments No Sex and Gender Information Value Date Recorded Sex Assigned at Not on file Legal Sex Female 12:43 PM CDT Gender Identity Not on file Sexual Orientation Not on file Last Filed Vital Signs Vital Sign Reading Time Taken Comments Blood Pressure 128/78 02/08/2024 3:40 PM NUMEROLOGIST Pulse 83 05/08/2022 3:59 PM NUMEROLOGIST Temperature 35.6 C (96 F) 05/08/2022 3:59 PM NUMEROLOGIST Respiratory Rate 16 01/27/2022 3:52 PM NUMEROLOGIST Oxygen Saturation 99% 05/08/2022 3:59 PM NUMEROLOGIST Inhaled Oxygen Concentration - - Weight 113.3 kg (249 lb 11.2 oz) 02/08/2024 3:40 PM NUMEROLOGIST Height 160 cm (5' 3) 02/08/2024 3:40 PM NUMEROLOGIST Body Mass Index 44.23 02/08/2024 3:40 PM NUMEROLOGIST Plan of Treatment Upcoming Encounters Date Type Department Care Team (Late st Contact Info) Description 02/08/2025 3:30 PM NUMEROLOGIST Office Visit [facility] - QUARTER INSPECTOR [address] [place] [address] Chris Herbert MD [address] [place] [address] Health Maintenance Due Date Last Done Comments HIV SCREENING 2009 HEPATITIS C SCREENING 01/01/2012 DTAP/TDAP/TD VACCINES (1 - Tdap) 2013 HEPATITIS B VACCINE (1 of 3 - 19+ 3-dose series) 2013 PNEUMOCOCCAL VACCINE (1 of 2 - PCV) 2013 DIABETES RETINOPATHY SCREENING 12/04/2022 DIABETES-FOOT EXAM WITH MONOFILAMENT 12/04/2022 DIABETES-HGB A1C 05/21/2023 11/19/2022 DIABETES-SERUM CREATININE 11/20/20232022, 11/19/2022, 01/27/2022, Additional history exists COVID-19 VACCINE (2 - season) 2023 08/26/2020 DEPRESSION SCREENING 03/23/2024 DIABETES - URINE PROTEIN SCREENING 03/23/2024 INFLUENZA VACCINE (Season Ended) 2024 02/06/2022, 02/04/2022 PAP SMEAR 11/26/2025 11/26/2022, 11/26/2022 ZOSTER VACCINE (1 of 2) 01/06/2044 HIB VACCINE Aged Out No longer eligi ble based on patient's age to complete this topic HPV VACCINE Aged Out No longer eligi ble based on patient's age to complete this topic MENINGOCOCCAL (Group B) VACCINE SHARED DECISION-MAKING Aged Out No longer eligible based on patient's age to complete this topic MENINGOCOCCAL GROUPS A/C/Y/W VACCINE Aged Out No longer eligible based on patient's age to complete this topic Procedures Procedure Name Priority Date/Time Associated Diagnosis Comments COMPREHENSIVE METABOLIC PANEL STAT 01/27/2022 12:58 PM NUMEROLOGIST from Last 3 Months or Most Recently Relevant to Health Maintenance Results * (ABNORMAL) COMPREHENSIVE METABOLIC PANEL (01/27/2022 12:58 PM NUMEROLOGIST) Glucose 111(H) 70 - 105 mg/dL 01/27/2022 1:20 PM NUMEROLOGIST [facility] Sodium 138 136 - 145 mmol/L 01/27/2022 1:20 PM NUMEROLOGIST [facility] Potassium 4.1 3.5 - 5.1 mmol/L 01/27/2022 1:[address] [facility] Chloride 105 98 - 107 mmol/L 01/27/2022 1:[address] [facility] CO2 22(L) 23 - 31 mmol/L 01/27/2022 1:20 PM [facility] Calcium 9.2 8.4 - 10.4 mg/dL 01/27/2022 1:20 PM [facility] Anion Gap 11 8 - 18 mmol/L 01/27/2022 1:20 PM [facility] BUN 9 7 - 18.7 mg/dL 01/27/2022 1:20 PM [facility] Creatinine 0.68 0.57 - 1.11 mg/dL 01/27/2022 1:20 PM [facility] Alkaline Phosphatase 96 40 - 150 U/L 01/27/2022 1:20 PM [facility] ALT 47 0 - 61 U/L 01/27/2022 1:20 PM [facility] AST 30 5 - 34 U/L 01/27/2022 1:20 PM [facility] Protein Total 7.5 6.4 - 8.3 gm/dL 01/27/2022 1:20 PM [facility] Albumin 4.2 3.5 - 5.2 gm/dL 01/27/2022 1:20 PM [facility] Bilirubin Total 0.4 0.2 - 1.2 mg/dL 01/27/2022 1:20 PM [facility] eGFR by CKD-EPI >90 >=90 mL/min/1.7 3 m2 01/27/2022 1:20 PM [facility] Blood BLOOD SPECIMEN / Unknown Venipuncture / Unknown 01/27/2022 12:58 PM NUMEROLOGIST 01/27/2022 1:03 PM NUMEROLOGIST Latanya Bradley STAIR BUILDER-JUVENILE JUSTICE SPECIALIST LAB - CHEMISTRY ORDERAB LES Final Result [facility] [address] [place] [address] from Last 3 Months or Most Recently Relevant to Health Maintenance Insurance [id number] [place] [address] [place] [address] Care Teams Mill Recorder Relationship Specialty Start Date End Date Smiley Camarillo DO [address] [place] [phone] PCP - General Obstetrics and Gynecology 07/19/21 Smiley Camarillo DO [address] [place] [address] Obstetrics and Gynecology 07/19/21
--- OUTSIDE RECORDS SUMMARY | 2024-08-28 15:40 | XMS_ITS ---
Author Organization [facility] Address [address] [place] [address] Care Team Providers Care Agency Cashier Name Role Phone Jillian Monahan Primary Care Provider [phone] Kiana Worley [phone] REASON FOR VISIT r/s from Medications Medication SIG (Take, Route, Frequency, Duration) Notes Start Date End Date Status Amphetamine-Dextroamph etamine 15 MG 1 tablet Orally Twice a day for 30 days Okay to send Rx now 06/23/2024 Active lamoTRIgine 150 MG 1 tablet Orally Once a day for 30 days Active Prazosin HCl 1 MG 1 capsule at bedtime Orally Once a day for 30 days Active Sertraline HCl 50 MG 1 tablet Orally Onc e a day for 30 days Active QUEtiapine Fumarate 400 MG 1 tablet at bedtime Orally Once a day for 30 days Active Social History Sex Assigned At : Social History Observation Description Sex Assigned At Female Encounters Encounter Location Date Provider Diagnosis [address] [place] [address] 08/02/2024 Jillian Monahan Plan Of Treatment No Information Progress Notes * Hilaria TOLENTINODOB:[birth year] (29 yo F)Acc No.[id number]:08/02/2024 UNLOCKED PROGRESS NOTE Patient: Hilaria ORELLANA Provider: Dunia Monahan, DNP, EXPANDED DUTY DENTAL ASSISTANT, PMHNP-BC :1995 A ge:29 Y S ex:Female Date:08/02/2024 [id number] Check In:09:01 AM WEBSPHERE PORTAL DEVELOPER Subjective: * Chief Complaints: * 1 . R/s from . * Medical History: * Medications: T aking Prazosin HCl 1 MG Capsule 1 capsule at bedtime Orally Once a day , Taking Sertraline HCl 50 MG Tablet 1 tablet Orally Once a day , Taking QUEtiapine Fumarate 400 MG Tablet 1 tablet at bedtime Orally Once a day , Taking Amphetamine-Dextroamphetamine 15 MG Tablet 1 tablet Orally Twice a day , Notes to Pharmacist: Okay to send Rx now, Taking lamoTRIgine 150 MG Tablet 1 tablet Orally Once a day Objective: * Vitals: Assessment: Plan: * Treatment: * * Electronic signature of Chyna Bravo , [id number] on 08/28/2024 at 03:40 PM CDT Sign off status: Pending * Provider: Dunia Monahan DNP, APRN, PMP- Date: 0 08/02/2024 Generated for Printing/Faxing/eTransmitting on: 0 08/28/2024 03:40 PM CDT
--- OUTSIDE RECORDS SUMMARY | 2024-08-28 15:41 | XMS_ITS ---
Author Organization [facility] Address [address] [place] [address] Care Team Providers Care Laboratory Coordinator Name Role Phone Jillian Monahan Primary Care Provider [phone] Kiana Worley [phone] REASON FOR VISIT 4 week F/U Social History Sex Assigned At : Social History Observation Description Sex Assigned At Female Encounters Encounter Location Date Provider Diagnosis [address] [address] 07/27/2024 Jillian Monahan Plan Of Treatment No Information Progress Notes * Hilaria TOLENTINODOB:[birth year] (29 yo F)Acc No.[id number]:07/27/2024 UNLOCKED PROGRESS NOTE Patient: Hilaria ORELLANA Provider: Dunia Monahan, DNP, ORACLE AGILE PLM CONSULTANT, PMHNP- :1995 A ge:29 Y S ex:Female Date:07/27/2024 Address:[address] [place], [place] [id number] Subjective: * Chief Complaints: * 1 . 4 week F/U. * Medical History: Objective: * Vitals: Assessment: Plan: * Treatment: * * Electronic signature of Chyna Bravo [id number] on 08/28/2024 at 03:40 PM CDT Sign off status: Pending * Provider: Dunia Monahan DNP, ORACLE AGILE PLM CONSULTANT, PMHNP-BC Date: 0 07/27/2024 Generated for Printing/Faxing/eTransmitting on: 0 08/28/2024 03:40 PM CDT
--- OUTSIDE RECORDS SUMMARY | 2024-08-28 15:41 | XMS_ITS ---
Author Organization [facility] Address [address] [place] [address] Care Team Providers Care Tube Backer Name Role Phone Jillian Monahan Primary Care Provider Brunilda Kiana Unavailable [phone] REASON FOR VISIT 4 week F/U Medications Medication SIG (Take, Route, Frequency, Duration) [...] Female Encounters Encounter Location Date Provider Diagnosis [address] [address] 08/08/2024 Jillian Monahan Plan Of Treatment No Information Progress Notes * Juan David TOLENTINO:[birth year] (29 yo F)Acc No.[id number]:08/08/2024 UNLOCKED PROGRESS NOTE Patient: Hilaria ORELLANA Provider: Dunia Monahan, DNP, LEGAL ARBITRATOR, PMHNP-BC :1995 A ge:29 Y S ex:Female Date:08/08/2024 [facility] Check In:08:01 AM TIMING INSPECTOR Subjective: * Chief Complaints: * 1 . 4 week F/U. * Medical History: * Medications: T aking [...] * Electronic signature of Chyna Bravo , [id number] on 08/28/2024 at 03:40 PM CDT Sign off status: Pending * Provider: Dunia Monahan DNP, LEGAL ARBITRATOR, HNP- Date: 0 08/08/2024 Generated for Printing/Faxing/eTransmitting on: 0 08/28/2024 03:40 PM CDT
--- OUTSIDE RECORDS SUMMARY | 2024-08-28 15:41 | XMS_ITS | Encounter Summary ---
Author Organization [facility] Address [address] [place] [address] Care Team Providers Care Responder Name Role Phone Smiley Camarillo DO Primary Care Provider Smiley Camarillo DO Unavailable [phone] Reason for Visit * Reason Onset Date Comments Concerns 12/10/2022 Encounter Details Date Type Department Care Team (Late st Contact Info) Description 12/10/2022 Telephone [facility] - ETHYLBENZENE CONVERTER HELPER [address] [place] [address] Chris Herbert MD [address] [place] [address] Concerns Social History Tobacco Use Types Packs/Day Years Used Date Smoking Tobacco: Every Day Cigarettes 0.5 13.4 Started: 2011 AUDIT-C Answer Date Recorded Q1: How often do you have a drink containing alcohol? Never 01/27/2022 Q2: How many drinks containi ng alcohol do you have on a typical day when you are drinking? Patient does not drink Q3: How often do you have si x or more drinks on one occasion? Never 01/27/2022 Comments Unknown Sex and Gender Information Value Date Recorded Sex Assigned at Not on file Legal Sex Female 12:43 PM CDT Gender Identity Not on file Sexual Orientation Not on file documented as of this encounter Miscellaneous Notes * Telephone Encounter - Andressa Lopez RN - 12/10/2022 3:14 PM CDT Reviewed POST OP CARE Patient verbalizes understanding * Telephone Encounter - Daniella Bustamante - 12/10/2022 2:33 PM CDT PT significant other calling concerned about patient incision that is bleeding. CB# [phone] documented in this encounter Plan of Treatment Upcoming Encounters Date Type Department Care Team (Late st Contact Info) Description 02/08/2025 3:30 PM REGISTERED NURSE BEHAVIORAL HEALTH Office Visit [facility] - ETHYLBENZENE CONVERTER HELPER [address] [place] [phone] Chris Herbert MD [address] [place] [address] documented as of this encounter Visit Diagnoses Not on filedocumented in this encounter Care Teams Responder Relationship Specialty Start Date End Date Smiley Camarillo DO [address] [place] [phone] PCP - General Obstetrics and Gynecology 07/19/21 Smiley Camarillo DO [address] [place] [phone] Obstetrics and Gynecology 07/19/21 documented as of this encounter
--- NOTE | 2024-08-28 16:18 | PC.NURSE ---
Patient states she thinks everyone would be better off if they didnt know I was gone, but I don't want to .
--- OUTSIDE RECORDS SUMMARY | 2024-08-28 16:42 | XMS_ITS | Clinical Summary ---
Author Organization [facility] Address [address] [place] [address] Care Team Providers Care Instrument Mechanics Supervisor Name Role Phone Smiley Camarillo DO Primary Care Provider Smiley Camarillo DO Unavailable [phone] Source Comments [facility],non-owned Affiliates and Associated Physician Practices is amultiple site organization consisting of ambulatory clinics and hospital sitesin [place], [place], [place] and [place]. This disclosure is being madepursuant to the Care Everywhere program and may not contain all information available regarding this patient. Last updated 17.[facility] Allergies No known active allergies Medications [...] (12/04/2022): Polycystic ovarian syndrome;Recorded Elsewhere: No Location: [facility] Source: EHR Chronic: N Practice ID: [id number] Billable Time: 11:00:00 AM Polycystic ovarian syndrome;Recorded Elsewhere: No Location: [facility] Source: EHR Chronic: N Practice ID: [id number] [...] Comments Blood Pressure 128/78 02/08/2024 3:40 PM LEAD QA ANALYST Pulse 83 05/08/2022 3:59 PM LEAD QA ANALYST Temperature 35.6 C (96 F) 05/08/2022 3:59 PM LEAD QA ANALYST Respiratory Rate 16 01/27/2022 3:52 PM LEAD QA ANALYST Oxygen Saturation 99% 05/08/2022 3:59 PM LEAD QA ANALYST Inhaled Oxygen Concentration - - Weight 113.3 kg (249 lb 11.2 oz) 02/08/2024 3:40 PM LEAD QA ANALYST Height 160 cm (5' 3) 02/08/2024 3:40 PM LEAD QA ANALYST Body Mass Index 44.23 02/08/2024 3:40 PM LEAD QA ANALYST Plan of Treatment Upcoming Encounters Date Type Department Care Team (Late st Contact Info) Description 02/08/2025 3:30 PM LEAD QA ANALYST Office Visit [facility] - ENGINEERING PRODUCTION LIAISON [address] [place] [address] Chris Herbert MD [address] [place] [address] Health Maintenance Due Date Last Done Comments [...] COMPREHENSIVE METABOLIC PANEL STAT 01/27/2022 12:58 PM LEAD QA ANALYST from Last 3 Months or Most Recently Relevant to Health Maintenance Results * (ABNORMAL) COMPREHENSIVE METABOLIC PANEL (01/27/2022 12:58 PM LEAD QA ANALYST) Glucose 111(H) 70 - 105 mg/dL 01/27/2022 1:20 PM LEAD QA ANALYST [facility] Sodium 138 136 - 145 mmol/L 01/27/2022 1:20 PM LEAD QA ANALYST [facility] Potassium 4.1 3.5 - 5.1 mmol/L 01/27/2022 1:20 PM [facility] Chloride 105 98 - 107 mmol/L 01/27/2022 1:20 PM [facility] CO2 22(L) 23 - 31 mmol/L 01/27/2022 1:[address] [facility] Calcium 9.2 8.4 - 10.4 mg/dL 01/27/2022 1:[address] [facility] Anion Gap 11 8 - 18 mmol/L 01/27/2022 1:[address] [facility] BUN 9 7 - 18.7 mg/dL 01/27/2022 1:[address] [facility] Creatinine 0.68 0.57 - 1.11 mg/dL 01/27/2022 1:[address] [facility] Alkaline Phosphatase 96 40 - 150 U/L 01/27/2022 1:[address] [facility] ALT 47 0 - 61 U/L 01/27/2022 1:[address] [facility] AST 30 5 - 34 U/L 01/27/2022 1:[address] [facility] Protein Total 7.5 6.4 - 8.3 gm/dL 01/27/2022 1:[address] [facility] Albumin 4.2 3.5 - 5.2 gm/dL 01/27/2022 1:[address] [facility] Bilirubin Total 0.4 0.2 - 1.2 mg/dL 01/27/2022 1:[address] [facility] eGFR by CKD-EPI >90 >=90 mL/min/1.7 3 m2 01/27/2022 1:[address] [facility] Blood BLOOD SPECIMEN / Unknown Venipuncture / Unknown 01/27/2022 12:58 PM LEAD QA ANALYST 01/27/2022 1:03 PM LEAD QA ANALYST Latanya Bradley DOUGHNUT BATTER MIXER-MODEL AND MOLD MAKER LAB - CHEMISTRY ORDERAB LES Final Result [facility] [address] [place] [address] from Last 3 Months or Most Recently Relevant to Health Maintenance Insurance [id number] [place] [address] [place] [address] Care Teams Instrument Mechanics Supervisor Relationship Specialty Start Date End Date Smiley Camarillo DO [address] [place] [phone] PCP - General Obstetrics and Gynecology 07/19/21 Smiley Camarillo DO [address] [place] [phone] Obstetrics and Gynecology 07/19/21
--- OUTSIDE RECORDS SUMMARY | 2024-08-28 16:42 | XMS_ITS | Encounter Summary ---
Author Organization [facility] Address [address] [place] [address] Care Team Providers Care Sugar Drier Name Role Phone Smiley Camarillo DO Primary Care Provider Smiley Camarillo DO Unavailable [phone] Reason for Visit * Reason Onset Date Comments Concerns 12/10/2022 Encounter Details Date Type Department Care Team (Late st Contact Info) Description 12/10/2022 Telephone [facility] - BRIDAL CONSULTANT [address] [place] [address] Chris Herbert MD [address] [place] [address] Concerns Social History Tobacco Use [...] about patient incision that is bleeding. CB# [phone] documented in this encounter Plan of Treatment Upcoming Encounters Date Type Department Care Team (Late st Contact Info) Description 02/08/2025 3:30 PM MACERATOR OPERATOR Office Visit [facility] - BRIDAL CONSULTANT [address] [place] [phone] Chris Herbert MD [address] [place] [address] documented as of this encounter Visit Diagnoses Not on filedocumented in this encounter Care Teams Sugar Drier Relationship Specialty Start Date End Date Smiley Camarillo DO [address] [place] [phone] PCP - General Obstetrics and Gynecology 07/19/21 Smiley Camarillo DO [address] [place] [phone] Obstetrics and Gynecology 07/19/21 documented as of this encounter
[2024-08-28 17:18] LABS: Basophils Percent Auto 0.3 % (0.2-1.2); Eosinophils Absolute Auto 0.1 K/mm3 (0-0.3); Eosinophils Percent Auto 0.7 % (0-4.4); Hematocrit 44.2 % (37.0-47.0); Hemoglobin 14.6 g/dL (12.0-15.0); Immature Granulocyte Absolute 0.04 K/mm3 (0.00-0.031); Immature Granulocyte Percent A 0.5 % (0-0.5); Lymphocytes Percent Auto 24.3 % (18.3-44.2); Mean Corpuscular Volume 87.9 fl (80-100); Mean Platelet Volume 8.5 fl (7.4-10.4); Monocytes Absolute Auto 0.5 K/mm3 (0.1-0.6); Monocytes Percent Auto 5.4 % (2.6-8.5); Neutrophils Absolute Auto 5.9 K/mm3 (1.3-6.7); Neutrophils Percent Auto 68.8 % (45.5-73.1); Platelet Count Result 306 k/mm3 (150-375); Red Blood Count 5.03 M/mm3 (4.2-5.4); Red Cell Distribution Width 14.5 % (11.5-14.5); White Blood Count 8.6 K/mm3 (4.5-10.0)
--- NOTE | 2024-08-28 17:19 | PC.NURSE ---
Patient given a cup of water to assist with giving a urine sample
--- NOTE | 2024-08-28 17:27 | ED_ITS ---
HPI - Psych General Chief Complaint: Psychiatric Symptoms <Leonora Esparza PA-C - Last Filed: 08/29/24 01:05> Stated Complaint: mental health eval and abd. pain <KRYSTINA Vallejo Last Filed: 08/29/24 01:05> Time Seen by Provider: 08/28/24 16:32 <KRYSTINA Vallejo Last Filed: 08/29/24 01:05> History of Present Illness HPI Narrative: 29-year-old female with a history of bipolar disorder and hypothyroidism presents to the emergency department via EMS for suicidal ideation. Patient states her left her yesterday and since then she has been very sad and depressed. She states she contacted EMS after she knew that if she stayed home she was going to kill herself. She denies a plan. Denies HI or auditory or visual hallucinations. She denies prior history of psychiatric hospitalizations. She states she was previously taking quetiapine and lamotrigine for bipolar disorder but discontinued these 1 month ago after she felt like she did not need them anymore. She follows with psychiatry and chest not. 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 Denies other substance abuse. Denies access to weapons or firearms. Her psychiatrist is with [facility]. <Leonora Esparza PA-C - Last Filed: 08/29/24 01:05> Related Data Home Medications: Home Medications ?Medication ?Instructions ?Recorded ?Confirmed ?Last Taken ?Type No Home Medications 08/29/24 08/29/24 Unknown History <Leonora Esparza PA-C - Last Filed: 08/29/24 01:05> Allergies/Adverse Reactions: Allergies Allergy/AdvReac Type Severity Reaction Status Date / Time No Known Allergies Allergy Verified 08/28/24 15:39 <KRYSTINA Vallejo Last Filed: 08/29/24 01:05> Review of Systems 2 Review of Systems: All systems reviewed & are unremarkable except as noted in HPI and below <KRYSTINA Vallejo Last Filed: 08/29/24 01:05> [facility] Past Medical History Medical History: Medical History Hypothyroidism Bipolar 1 disorder PCOS (polycystic ovarian syndrome) <Leonora Esparza PA-C - Last Filed: 08/29/24 01:05> Surgical History Surgical History: Surgical History No significant past surgical history <Leonora Esparza PA-C - Last Filed: 08/29/24 01:05> Family History Family History: Family History Mother Sleep walking Snoring <Leonora Esparza PA-C - Last Filed: 08/29/24 01:05> Social History Social History: Social History Smoking packs per day: 0.5 Smoking cigarettes per day: 10.0 Smoking status: Current every day smoker Alcohol intake: current Alcohol use details: socially Substance use type: does not use <Leonora Esparza PA-C - Last Filed: 08/29/24 01:05> Exam 2 Narrative: GENERAL: Well-appearing, well-nourished, and in no acute distress. HEAD: Normocephalic, atraumatic. EYES: EOMI. ENT: Nares clear, no rhinorrhea or epistaxis. Mucous membranes moist. NECK: Supple. CHEST: Clear to auscultation. No respiratory distress. HEART: Regular rate and rhythm. No murmur heard. Normal peripheral pulses. EXTREMITIES: Normal range of motion. No edema. SKIN: Warm, dry, no rash. NEURO: No focal deficits. Alert and oriented x3 PSYCH: Tearful, sad, depressed. Admits to SI with no plan. Denies HI. Denies hallucinations. Not responding to internal stimuli. <Leonora Esparza PA-C - Last Filed: 08/29/24 01:05> Course SPORTS BOOK BOARD ATTENDANT/PA Physician Supervision For this patient encounter, I reviewed the SPORTS BOOK BOARD ATTENDANT or PA documentation, treatment plan, and medical decision making and had [id number] time with this patient. I performed all aspects of the MDM as documented. <Willy Encarnacion MD - Last Filed: 08/29/24 04:13> Reevaluation(s) Reevaluation #1: PAtient awaiting transport to the [facility] for psychiatric evaluation < Nelli Fuentes MD - Last Filed: 08/29/24 20:32> Date: 08/29/24 <Nelli Fuentes MD - Last Filed: 08/29/24 20:32> Time: 08:00 <Nelli Fuentes MD - Last Filed: 08/29/24 20:32> Vital Signs Vital signs: Vital Signs Temperature 97.8 F 08/28/24 15:39 Pulse Rate 93 08/28/24 15:39 Respiratory Rate 16 08/28/24 15:39 Blood Pressure 144/87 H 08/28/24 15:39 Pulse Oximetry 98 08/28/24 15:39 Oxygen Delivery Room Air 08/28/24 15:39 Temperature 98.2 F 08/29/24 05:56 Pulse Rate 63 08/29/24 10:42 Respiratory Rate 15 08/29/24 10:42 Blood Pressure 118/72 08/29/24 10:42 Pulse Oximetry 99 08/29/24 10:42 Oxygen Delivery Room Air 08/28/24 15:39 <Leonora Esparza PA-C - Last Filed: 08/29/24 01:05> Vital Signs Temperature 97.8 F 08/28/24 15:39 Pulse Rate 93 08/28/24 15:39 Respiratory Rate 16 08/28/24 15:39 Blood Pressure 144/87 H 08/28/24 15:39 Pulse Oximetry 98 08/28/24 15:39 Oxygen Delivery Room Air 08/28/24 15:39 Temperature 98.2 F 08/29/24 05:56 Pulse Rate 63 08/29/24 10:42 Respiratory Rate 15 08/29/24 10:42 Blood Pressure 118/72 08/29/24 10:42 Pulse Oximetry 99 08/29/24 10:42 Oxygen Delivery Room Air 08/28/24 15:39 <Willy Encarnacion MD - Last Filed: 08/29/24 04:13> Vital Signs Temperature 97.8 F 08/28/24 15:39 Pulse Rate 93 08/28/24 15:39 Respiratory Rate 16 08/28/24 15:39 Blood Pressure 144/87 H 08/28/24 15:39 Pulse Oximetry 98 08/28/24 15:39 Oxygen Delivery Room Air 08/28/24 15:39 Temperature 98.2 F 08/29/24 05:56 Pulse Rate 63 08/29/24 10:42 Respiratory Rate 15 08/29/24 10:42 Blood Pressure 118/72 08/29/24 10:42 Pulse Oximetry 99 08/29/24 10:42 Oxygen Delivery Room Air 08/28/24 15:39 <Nelli Fuentes MD - Last Filed: 08/29/24 20:32> MDM - Psych MDM Narrative Medical decision making narrative: 29-year-old female with history of bipolar disorder presents to emergency department for suicidal ideations. See HPI for further history. Vitals are stable. Patient is tearful, sad and depressed on exam. Admits to SI with no plan. Vitals stable. Exam is notable for the above. CBC unremarkable. Chemistries with a bicarb of 21 and anion gap of 14, likely dehydration, BUN also elevated to 19. Fluids provided. TSH elevated to 6.620, free T4 pending. Patient has history of hypothyroidism. UDS positive for cannabinoids. ETOH less than 10. Viral swabs are negative. Patient medically cleared for crisis evaluation. Patient evaluated by crisis in agree to place the patient for psychiatric hospitalization. Patient agrees to go under voluntary status. Pending bed assignment at time of sign-out to Dr. Encarnacion. <Leonora Esparza PA-C - Last Filed: 08/29/24 01:05> 29-year-old female with history of bipolar disorder presents to emergency department for suicidal ideations. See HPI for further history. Vitals are stable. Patient is tearful, sad and depressed on exam. Admits to SI with no plan. Vitals stable. Exam is notable for the above. CBC unremarkable. Chemistries with a bicarb of 21 and anion gap of 14, likely dehydration, BUN also elevated to 19. Fluids provided. TSH elevated to 6.620, free T4 pending. Patient has history of hypothyroidism. UDS positive for cannabinoids. ETOH less than 10. Viral swabs are negative. Patient medically cleared for crisis evaluation. Patient evaluated by crisis in agree to place the patient for psychiatric hospitalization. Patient agrees to go under voluntary status. Pending bed assignment at time of sign-out to Dr. Encarnacion. <Willy Encarnacion MD - Last Filed: 08/29/24 04:13> Lab Data Result diagrams: 08/28/24 17:12 08/28/24 17:12 <Leonora Esparza PA-C - Last Filed: 08/29/24 01:05> Labs: Lab Results 08/28/24 08/28/24 08/28/24 Range/Units 17:12 18:12 18:15 WBC 8.6 (4.5-10.0) K/mm3 RBC 5.03 (4.2-5.4) M/mm3 Hgb 14.6 (12.0-15.0) g/dL Hct 44.2 (37.0-47.0) % MCV 87.9 (80-100) fl MCH 29.0 (26-34) pg MCHC 33.0 (32-36) g/dl RDW 14.5 (11.5-14.5) % Plt Count 306 (150-375) k/mm3 MPV 8.5 (7.4-10.4) fl Immature Gran % (Auto) 0.5 (0-0.5) % Neut % (Auto) 68.8 (45.5-73.1) % Lymph % (Auto) 24.3 (18.3-44.2) % [place] % (Auto) 5.4 (2.6-8.5) % Eos % (Auto) 0.7 (0-4.4) % Baso % (Auto) 0.3 (0.2-1.2) % Lymph # (Auto) 2.10 (0.9-3.2) K/mm3 [place] # (Auto) 0.5 (0.1-0.6) K/mm3 Eos # (Auto) 0.1 (0-0.3) K/mm3 Baso # (Auto) 0.0 (0.0-0.1) K/mm3 Abs Immat Gran (auto) 0.04 H (0.00-0.031) K/mm3 Absolute Neuts (auto) 5.9 (1.3-6.7) K/mm3 Absolute Nucleated RBC 0.000 (0.0-0.012) K/mm3 Nucleated RBC % 0.0 (0.0-0.2) % Sodium 139 (137-145) mmol/L Potassium 3.6 (3.4-5.0) mmol/L Chloride 104 (98-107) mmol/L Carbon Dioxide 21 L (22-30) mmol/L Anion Gap 14 H (4-12) mmol/L BUN 19 H (7-17) mg/dL Creatinine 0.69 L (0.7-1.0) mg/dL Estim Creat Clear Calc Not Reportable Estimated GFR > 60 (59 - ) Glucose 193 H (65-110) mg/dL Calcium 9.4 (8.4-10.2) mg/dL Total Bilirubin 1.2 (0.2-1.3) mg/dL AST 39 H (14-36) U/L ALT 44 H (6-35) U/L Alkaline Phosphatase 93 (38-126) U/L Total Protein 8.2 (6.3-8.2) g/dL Albumin 4.9 (3.5-5.1) g/dL TSH 6.620 H (0.465-4.680) uIU/mL Free T4 (0.78-2.19) ng/dL Urine Color Dark yellow (Yellow) Urine Appearance Cloudy H (Clear) Urine pH 5.5 (5.0-9.0) Ur Specific [place] 1.031 (1.001-1.035) Urine Protein Trace (Negative) mg/dL Urine Glucose (UA) Negative (Negative) mg/dL Urine Ketones 1+ H (Negative) mg/dL Ur Blood (Man) Negative (Negative) Urine Nitrate Negative (Negative) Urine Bilirubin Negative (Negative) Urine Urobilinogen 1.0 (<2.0) mg/dL Add Ur Microanalysis Reviewed Leukocyte Esterase Rfl Negative (Negative) CRISPIN/UL Urine RBC 0-2 (0-2) /hpf Urine WBC 11-20 H (0-3) /hpf Ur Squamous Epith Cells Many H (Few) /hpf Urine Bacteria 2+ H /hpf Urine Casts 0-2 POC Urine HCG, Qual Negative (Negative) Urine Opiates Screen Negative (Negative) Urine Methadone Screen Negative (Negative) Acetaminophen < 10 L (10-30) ug/mL Ur Barbiturates Screen Negative (Negative) Ur Phencyclidine Scrn Negative (Negative) Ur Amphetamine Screen Negative (Negative) U Benzodiazepines Scrn Negative (Negative) Urine Cocaine Screen Negative (Negative) U Cannabinoids Screen Positive A (Negative) Ethyl Alcohol < 10 (<10) mg/dL Influenza A (RT-PCR) Negative (Negative) Influenza B (RT-PCR) Negative (Negative) RSV (RT-PCR) Negative (Negative) SARS-CoV-2 RNA (RT-PCR) Negative (Negative) 08/28/24 Range/Units 18:49 WBC (4.5-10.0) K/mm3 RBC (4.2-5.4) M/mm3 Hgb (12.0-15.0) g/dL Hct (37.0-47.0) % MCV (80-100) fl MCH (26-34) pg MCHC (32-36) g/dl RDW (11.5-14.5) % Plt Count (150-375) k/mm3 MPV (7.4-10.4) fl Immature Gran % (Auto) (0-0.5) % Neut % (Auto) (45.5-73.1) % Lymph % (Auto) (18.3-44.2) % [place] % (Auto) (2.6-8.5) % Eos % (Auto) (0-4.4) % Baso % (Auto) (0.2-1.2) % Lymph # (Auto) (0.9-3.2) K/mm3 [place] # (Auto) (0.1-0.6) K/mm3 Eos # (Auto) (0-0.3) K/mm3 Baso # (Auto) (0.0-0.1) K/mm3 Abs Immat Gran (auto) (0.00-0.031) K/mm3 Absolute Neuts (auto) (1.3-6.7) K/mm3 Absolute Nucleated RBC (0.0-0.012) K/mm3 Nucleated RBC % (0.0-0.2) % Sodium (137-145) mmol/L Potassium (3.4-5.0) mmol/L Chloride (98-107) mmol/L Carbon Dioxide (22-30) mmol/L Anion Gap (4-12) mmol/L BUN (7-17) mg/dL Creatinine (0.7-1.0) mg/dL Estim Creat Clear Calc Estimated GFR (59 - ) Glucose (65-110) mg/dL Calcium (8.4-10.2) mg/dL Total Bilirubin (0.2-1.3) mg/dL AST (14-36) U/L ALT (6-35) U/L Alkaline Phosphatase (38-126) U/L Total Protein (6.3-8.2) g/dL Albumin (3.5-5.1) g/dL TSH (0.465-4.680) uIU/mL Free T4 0.79 (0.78-2.19) ng/dL Urine Color (Yellow) Urine Appearance (Clear) Urine pH (5.0-9.0) Ur Specific [place] (1.001-1.035) Urine Protein (Negative) mg/dL Urine Glucose (UA) (Negative) mg/dL Urine Ketones (Negative) mg/dL Ur Blood (Man) (Negative) Urine Nitrate (Negative) Urine Bilirubin (Negative) Urine Urobilinogen (<2.0) mg/dL Add Ur Microanalysis Leukocyte Esterase Rfl (Negative) CRISPIN/UL Urine RBC (0-2) /hpf Urine WBC (0-3) /hpf Ur Squamous Epith Cells (Few) /hpf Urine Bacteria /hpf Urine Casts POC Urine HCG, Qual (Negative) Urine Opiates Screen (Negative) Urine Methadone Screen (Negative) Acetaminophen (10-30) ug/mL Ur Barbiturates Screen (Negative) Ur Phencyclidine Scrn (Negative) Ur Amphetamine Screen (Negative) U Benzodiazepines Scrn (Negative) Urine Cocaine Screen (Negative) U Cannabinoids Screen (Negative) Ethyl Alcohol (<10) mg/dL Influenza A (RT-PCR) (Negative) Influenza B (RT-PCR) (Negative) RSV (RT-PCR) (Negative) SARS-CoV-2 RNA (RT-PCR) (Negative) <Leonora Esparza PA-C - Last Filed: 08/29/24 01:05> Lab Results 08/28/24 08/28/24 08/28/24 Range/Units 17:12 18:12 18:15 WBC 8.6 (4.5-10.0) K/mm3 RBC 5.03 (4.2-5.4) M/mm3 Hgb 14.6 (12.0-15.0) g/dL Hct 44.2 (37.0-47.0) % MCV 87.9 (80-100) fl MCH 29.0 (26-34) pg MCHC 33.0 (32-36) g/dl RDW 14.5 (11.5-14.5) % Plt Count 306 (150-375) k/mm3 MPV 8.5 (7.4-10.4) fl Immature Gran % (Auto) 0.5 (0-0.5) % Neut % (Auto) 68.8 (45.5-73.1) % Lymph % (Auto) 24.3 (18.3-44.2) % [place] % (Auto) 5.4 (2.6-8.5) % Eos % (Auto) 0.7 (0-4.4) % Baso % (Auto) 0.3 (0.2-1.2) % Lymph # (Auto) 2.10 (0.9-3.2) K/mm3 [place] # (Auto) 0.5 (0.1-0.6) K/mm3 Eos # (Auto) 0.1 (0-0.3) K/mm3 Baso # (Auto) 0.0 (0.0-0.1) K/mm3 Abs Immat Gran (auto) 0.04 H (0.00-0.031) K/mm3 Absolute Neuts (auto) 5.9 (1.3-6.7) K/mm3 Absolute Nucleated RBC 0.000 (0.0-0.012) K/mm3 Nucleated RBC % 0.0 (0.0-0.2) % Sodium 139 (137-145) mmol/L Potassium 3.6 (3.4-5.0) mmol/L Chloride 104 (98-107) mmol/L Carbon Dioxide 21 L (22-30) mmol/L Anion Gap 14 H (4-12) mmol/L BUN 19 H (7-17) mg/dL Creatinine 0.69 L (0.7-1.0) mg/dL Estim Creat Clear Calc Not Reportable Estimated GFR > 60 (59 - ) Glucose 193 H (65-110) mg/dL Calcium 9.4 (8.4-10.2) mg/dL Total Bilirubin 1.2 (0.2-1.3) mg/dL AST 39 H (14-36) U/L ALT 44 H (6-35) U/L Alkaline Phosphatase 93 (38-126) U/L Total Protein 8.2 (6.3-8.2) g/dL Albumin 4.9 (3.5-5.1) g/dL TSH 6.620 H (0.465-4.680) uIU/mL Free T4 (0.78-2.19) ng/dL Urine Color Dark yellow (Yellow) Urine Appearance Cloudy H (Clear) Urine pH 5.5 (5.0-9.0) Ur Specific [place] 1.031 (1.001-1.035) Urine Protein Trace (Negative) mg/dL Urine Glucose (UA) Negative (Negative) mg/dL Urine Ketones 1+ H (Negative) mg/dL Ur Blood (Man) Negative (Negative) Urine Nitrate Negative (Negative) Urine Bilirubin Negative (Negative) Urine Urobilinogen 1.0 (<2.0) mg/dL Add Ur Microanalysis Reviewed Leukocyte Esterase Rfl Negative (Negative) CRISPIN/UL Urine RBC 0-2 (0-2) /hpf Urine WBC 11-20 H (0-3) /hpf Ur Squamous Epith Cells Many H (Few) /hpf Urine Bacteria 2+ H /hpf Urine Casts 0-2 POC Urine HCG, Qual Negative (Negative) Urine Opiates Screen Negative (Negative) Urine Methadone Screen Negative (Negative) Acetaminophen < 10 L (10-30) ug/mL Ur Barbiturates Screen Negative (Negative) Ur Phencyclidine Scrn Negative (Negative) Ur Amphetamine Screen Negative (Negative) U Benzodiazepines Scrn Negative (Negative) Urine Cocaine Screen Negative (Negative) U Cannabinoids Screen Positive A (Negative) Ethyl Alcohol < 10 (<10) mg/dL Influenza A (RT-PCR) Negative (Negative) Influenza B (RT-PCR) Negative (Negative) RSV (RT-PCR) Negative (Negative) SARS-CoV-2 RNA (RT-PCR) Negative (Negative) 08/28/24 Range/Units 18:49 WBC (4.5-10.0) K/mm3 RBC (4.2-5.4) M/mm3 Hgb (12.0-15.0) g/dL Hct (37.0-47.0) % MCV (80-100) fl MCH (26-34) pg MCHC (32-36) g/dl RDW (11.5-14.5) % Plt Count (150-375) k/mm3 MPV (7.4-10.4) fl Immature Gran % (Auto) (0-0.5) % Neut % (Auto) (45.5-73.1) % Lymph % (Auto) (18.3-44.2) % [place] % (Auto) (2.6-8.5) % Eos % (Auto) (0-4.4) % Baso % (Auto) (0.2-1.2) % Lymph # (Auto) (0.9-3.2) K/mm3 [place] # (Auto) (0.1-0.6) K/mm3 Eos # (Auto) (0-0.3) K/mm3 Baso # (Auto) (0.0-0.1) K/mm3 Abs Immat Gran (auto) (0.00-0.031) K/mm3 Absolute Neuts (auto) (1.3-6.7) K/mm3 Absolute Nucleated RBC (0.0-0.012) K/mm3 Nucleated RBC % (0.0-0.2) % Sodium (137-145) mmol/L Potassium (3.4-5.0) mmol/L Chloride (98-107) mmol/L Carbon Dioxide (22-30) mmol/L Anion Gap (4-12) mmol/L BUN (7-17) mg/dL Creatinine (0.7-1.0) mg/dL Estim Creat Clear Calc Estimated GFR (59 - ) Glucose (65-110) mg/dL Calcium (8.4-10.2) mg/dL Total Bilirubin (0.2-1.3) mg/dL AST (14-36) U/L ALT (6-35) U/L Alkaline Phosphatase (38-126) U/L Total Protein (6.3-8.2) g/dL Albumin (3.5-5.1) g/dL TSH (0.465-4.680) uIU/mL Free T4 0.79 (0.78-2.19) ng/dL Urine Color (Yellow) Urine Appearance (Clear) Urine pH (5.0-9.0) Ur Specific [place] (1.001-1.035) Urine Protein (Negative) mg/dL Urine Glucose (UA) (Negative) mg/dL Urine Ketones (Negative) mg/dL Ur Blood (Man) (Negative) Urine Nitrate (Negative) Urine Bilirubin (Negative) Urine Urobilinogen (<2.0) mg/dL Add Ur Microanalysis Leukocyte Esterase Rfl (Negative) CRISPIN/UL Urine RBC (0-2) /hpf Urine WBC (0-3) /hpf Ur Squamous Epith Cells (Few) /hpf Urine Bacteria /hpf Urine Casts POC Urine HCG, Qual (Negative) Urine Opiates Screen (Negative) Urine Methadone Screen (Negative) Acetaminophen (10-30) ug/mL Ur Barbiturates Screen (Negative) Ur Phencyclidine Scrn (Negative) Ur Amphetamine Screen (Negative) U Benzodiazepines Scrn (Negative) Urine Cocaine Screen (Negative) U Cannabinoids Screen (Negative) Ethyl Alcohol (<10) mg/dL Influenza A (RT-PCR) (Negative) Influenza B (RT-PCR) (Negative) RSV (RT-PCR) (Negative) SARS-CoV-2 RNA (RT-PCR) (Negative) <Willy Encarnacion MD - Last Filed: 08/29/24 04:13> Lab Results 08/28/24 08/28/24 08/28/24 Range/Units 17:12 18:12 18:15 WBC 8.6 (4.5-10.0) K/mm3 RBC 5.03 (4.2-5.4) M/mm3 Hgb 14.6 (12.0-15.0) g/dL Hct 44.2 (37.0-47.0) % MCV 87.9 (80-100) fl MCH 29.0 (26-34) pg MCHC 33.0 (32-36) g/dl RDW 14.5 (11.5-14.5) % Plt Count 306 (150-375) k/mm3 MPV 8.5 (7.4-10.4) fl Immature Gran % (Auto) 0.5 (0-0.5) % Neut % (Auto) 68.8 (45.5-73.1) % Lymph % (Auto) 24.3 (18.3-44.2) % [place] % (Auto) 5.4 (2.6-8.5) % Eos % (Auto) 0.7 (0-4.4) % Baso % (Auto) 0.3 (0.2-1.2) % Lymph # (Auto) 2.10 (0.9-3.2) K/mm3 [place] # (Auto) 0.5 (0.1-0.6) K/mm3 Eos # (Auto) 0.1 (0-0.3) K/mm3 Baso # (Auto) 0.0 (0.0-0.1) K/mm3 Abs Immat Gran (auto) 0.04 H (0.00-0.031) K/mm3 Absolute Neuts (auto) 5.9 (1.3-6.7) K/mm3 Absolute Nucleated RBC 0.000 (0.0-0.012) K/mm3 Nucleated RBC % 0.0 (0.0-0.2) % Sodium 139 (137-145) mmol/L Potassium 3.6 (3.4-5.0) mmol/L Chloride 104 (98-107) mmol/L Carbon Dioxide 21 L (22-30) mmol/L Anion Gap 14 H (4-12) mmol/L BUN 19 H (7-17) mg/dL Creatinine 0.69 L (0.7-1.0) mg/dL Estim Creat Clear Calc Not Reportable Estimated GFR > 60 (59 - ) Glucose 193 H (65-110) mg/dL Calcium 9.4 (8.4-10.2) mg/dL Total Bilirubin 1.2 (0.2-1.3) mg/dL AST 39 H (14-36) U/L ALT 44 H (6-35) U/L Alkaline Phosphatase 93 (38-126) U/L Total Protein 8.2 (6.3-8.2) g/dL Albumin 4.9 (3.5-5.1) g/dL TSH 6.620 H (0.465-4.680) uIU/mL Free T4 (0.78-2.19) ng/dL Urine Color Dark yellow (Yellow) Urine Appearance Cloudy H (Clear) Urine pH 5.5 (5.0-9.0) Ur Specific [place] 1.031 (1.001-1.035) Urine Protein Trace (Negative) mg/dL Urine Glucose (UA) Negative (Negative) mg/dL Urine Ketones 1+ H (Negative) mg/dL Ur Blood (Man) Negative (Negative) Urine Nitrate Negative (Negative) Urine Bilirubin Negative (Negative) Urine Urobilinogen 1.0 (<2.0) mg/dL Add Ur Microanalysis Reviewed Leukocyte Esterase Rfl Negative (Negative) CRISPIN/UL Urine RBC 0-2 (0-2) /hpf Urine WBC 11-20 H (0-3) /hpf Ur Squamous Epith Cells Many H (Few) /hpf Urine Bacteria 2+ H /hpf Urine Casts 0-2 POC Urine HCG, Qual Negative (Negative) Urine Opiates Screen Negative (Negative) Urine Methadone Screen Negative (Negative) Acetaminophen < 10 L (10-30) ug/mL Ur Barbiturates Screen Negative (Negative) Ur Phencyclidine Scrn Negative (Negative) Ur Amphetamine Screen Negative (Negative) U Benzodiazepines Scrn Negative (Negative) Urine Cocaine Screen Negative (Negative) U Cannabinoids Screen Positive A (Negative) Ethyl Alcohol < 10 (<10) mg/dL Influenza A (RT-PCR) Negative (Negative) Influenza B (RT-PCR) Negative (Negative) RSV (RT-PCR) Negative (Negative) SARS-CoV-2 RNA (RT-PCR) Negative (Negative) 08/28/24 Range/Units 18:49 WBC (4.5-10.0) K/mm3 RBC (4.2-5.4) M/mm3 Hgb (12.0-15.0) g/dL Hct (37.0-47.0) % MCV (80-100) fl MCH (26-34) pg MCHC (32-36) g/dl RDW (11.5-14.5) % Plt Count (150-375) k/mm3 MPV (7.4-10.4) fl Immature Gran % (Auto) (0-0.5) % Neut % (Auto) (45.5-73.1) % Lymph % (Auto) (18.3-44.2) % [place] % (Auto) (2.6-8.5) % Eos % (Auto) (0-4.4) % Baso % (Auto) (0.2-1.2) % Lymph # (Auto) (0.9-3.2) K/mm3 [place] # (Auto) (0.1-0.6) K/mm3 Eos # (Auto) (0-0.3) K/mm3 Baso # (Auto) (0.0-0.1) K/mm3 Abs Immat Gran (auto) (0.00-0.031) K/mm3 Absolute Neuts (auto) (1.3-6.7) K/mm3 Absolute Nucleated RBC (0.0-0.012) K/mm3 Nucleated RBC % (0.0-0.2) % Sodium (137-145) mmol/L Potassium (3.4-5.0) mmol/L Chloride (98-107) mmol/L Carbon Dioxide (22-30) mmol/L Anion Gap (4-12) mmol/L BUN (7-17) mg/dL Creatinine (0.7-1.0) mg/dL Estim Creat Clear Calc Estimated GFR (59 - ) Glucose (65-110) mg/dL Calcium (8.4-10.2) mg/dL Total Bilirubin (0.2-1.3) mg/dL AST (14-36) U/L ALT (6-35) U/L Alkaline Phosphatase (38-126) U/L Total Protein (6.3-8.2) g/dL Albumin (3.5-5.1) g/dL TSH (0.465-4.680) uIU/mL Free T4 0.79 (0.78-2.19) ng/dL Urine Color (Yellow) Urine Appearance (Clear) Urine pH (5.0-9.0) Ur Specific [place] (1.001-1.035) Urine Protein (Negative) mg/dL Urine Glucose (UA) (Negative) mg/dL Urine Ketones (Negative) mg/dL Ur Blood (Man) (Negative) Urine Nitrate (Negative) Urine Bilirubin (Negative) Urine Urobilinogen (<2.0) mg/dL Add Ur Microanalysis Leukocyte Esterase Rfl (Negative) CRISPIN/UL Urine RBC (0-2) /hpf Urine WBC (0-3) /hpf Ur Squamous Epith Cells (Few) /hpf Urine Bacteria /hpf Urine Casts POC Urine HCG, Qual (Negative) Urine Opiates Screen (Negative) Urine Methadone Screen (Negative) Acetaminophen (10-30) ug/mL Ur Barbiturates Screen (Negative) Ur Phencyclidine Scrn (Negative) Ur Amphetamine Screen (Negative) U Benzodiazepines Scrn (Negative) Urine Cocaine Screen (Negative) U Cannabinoids Screen (Negative) Ethyl Alcohol (<10) mg/dL Influenza A (RT-PCR) (Negative) Influenza B (RT-PCR) (Negative) RSV (RT-PCR) (Negative) SARS-CoV-2 RNA (RT-PCR) (Negative) <Nelli Fuentes MD - Last Filed: 08/29/24 20:32> Discharge Plan Discharge Clinical Impression: Suicidal ideation <Leonora Esparza PA-C - Last Filed: 08/29/24 01:05> Patient Disposition: Psychiatric Hosp <Leonroa Esparza PA-C - Last Filed: 08/29/24 01:05> Condition: Stable <Leonora Esparza PA-C - Last Filed: 08/29/24 01:05> Patient Language: Somali <Leonora Esparza PA-C - Last Filed: 08/29/24 01:05> Prescriptions: No Action No Home Medications <Leonora Esparza PA-C - Last Filed: 08/29/24 01:05> Follow-up/Referrals: PHYSICIAN,LAST REPAIRER HELPER [Primary Care Provider] - <Leonora Esparza PA-C - Last Filed: 08/29/24 01:05>
[2024-08-28 17:28] LABS: Acetaminophen < 10 ug/mL (10-30); Alanine Aminotransferase 44 U/L (6-35); Albumin Level 4.9 g/dL (3.5-5.1); Alkaline Phosphatase 93 U/L (38-126); Anion Gap 14 mmol/L (4-12); Aspartate Amino Transferase 39 U/L (14-36); Bilirubin,Total 1.2 mg/dL (0.2-1.3); Blood Urea Nitrogen 19 mg/dL (7-17); Calcium 9.4 mg/dL (8.4-10.2); Carbon Dioxide 21 mmol/L (22-30); Chloride 104 mmol/L (98-107); Estimated Glomerular Filt Rate > 60; Ethanol < 10 mg/dL (<10); Glucose 193 mg/dL (65-110); Potassium 3.6 mmol/L (3.4-5.0); Sodium 139 mmol/L (137-145); Total Protein 8.2 g/dL (6.3-8.2)
[2024-08-28] MEDS: SODIUM CHLORIDE 0.9% IV 1,000 ML 999 ML IV CONT (17:40)
[2024-08-28 17:56] LABS: Influenza A QL RT-PCR Negative (Negative); Influenza B QL RT-PCR Negative (Negative); RSV RNA, RT-PCR Negative (Negative); SARS-CoV-2 RNA PCR Negative (Negative)
[2024-08-28 18:17] LABS: BEDSIDEPREGUCG Negative (Negative)
[2024-08-28 18:35] LABS: Add Urine Microscopic? YES; Appearance Urine Cloudy (Clear); Bacteria Urine 2+ /hpf; Bilirubin Urine Negative (Negative); Blood Urine Negative (Negative); Color Urine Dark Yellow (Yellow); Glucose Urine UA Negative (Negative); Ketones Urine 1+ mg/dL (Negative); Leukocyte Esterase Ur Negative LEU/UL (Negative); Need Manual Microscopic Reviewed; Nitrate Urine Negative (Negative); Non Pathogenic Casts 0-2; Protein Urine Trace mg/dL (Negative); RBC Urine 0-2 /hpf (0-2); Specific Grav Ur 1.031 (1.001-1.035); Squamous Epithelial Cell Urine Many /hpf (Few); pH Urine 5.5 (5.0-9.0)
[2024-08-28 18:42] LABS: Amphetamine Screen Urine Negative (Negative); Barbiturate Screen Urine Negative (Negative); Benzodiazepines Screen Urine Negative (Negative); Cannabinoid Screen Urine Positive (Negative); Cocaine Screen Urine Negative (Negative); Methadone Screen Urine Negative (Negative); Opiate Screen Urine Negative (Negative); Phencyclidine Screen Urine Negative (Negative)
[2024-08-28 19:33] VITALS: BP 117/63; PULSE 77; RESP 18; O2SAT 100
[2024-08-28 20:10] LABS: Free T4 Free Thyroxine 0.79 ng/dL (0.78-2.19)
--- NOTE | 2024-08-28 21:38 | PC.NURSE ---
Pt evaluated by crisis. Pt voluntary for inpatient. [facility], [facility], and [facility] all contacted for placement.
--- NOTE | 2024-08-28 22:22 | PC.NURSE ---
2217- Abdullahi BERNSTEIN from [facility] in [place], called and accepted pt. Dr. James is the accepting physician. Nurse-Nurse report complete. Abdullahi BERNSTEIN stated anytime after 0800 can arrive.
[2024-08-29 00:53] VITALS: BP 143/95; PULSE 74; RESP 20; O2SAT 100
--- NOTE | 2024-08-29 00:53 | PC.NURSE ---
This RN told pt about placement. Pt initially stated, i am not going there. That is too far. This RN sat to talk to pt and pt eventually stated, I am just scared. Pt has calmed down and is cooperative and in a stable mood at this time.
--- NOTE | 2024-08-29 03:29 | PC.NURSE ---
Pt called out saying, I am leaving right now. I want to leave and go home. EDP and charge nurse notified. Pt was informed that because of her statements she will have to go inpatient voluntary or involuntary. Pt the went to lay on stretcher and stated, Then I guess if you guys are gonna force me.
--- NOTE | 2024-08-29 05:30 | PC.NURSE ---
Pt called this RN into room wanting her IV out stating, It is hurting me and I just want to sleep. I promise I won't leave. If I really wanted to I would have done that earlier. This RN removed IV and gave pt a cool rag and a pillow. Pt is now laying on stretcher resting in NAD. Pt appeared to be settled.
[2024-08-29 05:56] VITALS: BP 130/73; PULSE 71; RESP 18; TEMP 36.8; O2SAT 98
[2024-08-29 07:20] VITALS: BP 124/70; PULSE 63; RESP 18; O2SAT 98
--- NOTE | 2024-08-29 07:38 | PC.NURSE ---
breakfast tray ordered
[2024-08-29 10:42] VITALS: BP 118/72; PULSE 63; RESP 15; O2SAT 99
== END 2024-08-29 12:10 ==
PROVIDERS: Emergency Provider Physician Assistant
DX: R45.851 Suicidal ideations (principal); E03.9 Hypothyroidism, unspecified; F31.9 Bipolar disorder, unspecified; F17.210 Nicotine dependence, cigarettes, uncomplicated; Z11.59 Encounter for screening for other viral diseases
CPT/HCPCS: 36415; 80053; 80143; 80307; 81001; 81025; 82077; 84439; 84443; 85025; 87637; 96360; 99285; J7030

== ENCOUNTER 2024-10-14 12:49 | Outpatient (CLI) | payer OTHER, SELFPAY ==
--- NOTE | ~2024-10-14 | MM_ITS ---
EXAMINATION: MM diagnostic veena BI w sadi INDICATION: Per Clinician request. ? Breast pain. COMPARISON: Baseline TECHNIQUE: Full field digital CC, MLO views were obtained with computer-aided detection to assist in interpretation of the study. FINDINGS: The breasts are almost entirely fatty. No focal dominant mass, architectural distortion, or suspicious microcalcifications are identified. T here are prominent lymph nodes seen in both axilla. IMPRESSION: Prominent axillary lymph nodes bilaterally. There are no suspicious findings within the b reast parenchyma. RECOMMENDATION: Bilateral axillary ultrasound. Clinical management of patient's breast pain. BI-RADS Category 0: Incomplete: Needs additional imaging evaluation. Reviewed, dictated and finalized at location B. IMPRESSION: Prominent axillary lymph nodes bilaterally. There are no suspicious findings within the breast parenchyma. RECOMMENDATION: Bilateral axillary ultrasound. Clinical management of patient's breast pain. BI-RADS Category 0: Incomplete: Needs additional imaging evaluation.
--- OUTSIDE RECORDS SUMMARY | 2024-10-14 12:54 | XMS_ITS | Patient Health Record ---
Author Organization [facility] Address [address] [place] [address] Care Team Providers Care Borematic Machine Operator Name Role Phone Jillian Monahan Primary Care Provider Kiana Worley Unavailable [phone] Nazia Carr Unavailable [phone] Jennifer Gaines Unavailable [phone] Allergies No Known Allergies Results Component Value Reference Range Notes Vitamin D, 25-Hydroxy* Reviewed date:10/05/2024 04:06:08 PM Interpretation: Performing Lab:[facility], [address] [facility], Phone - [phone], Director - Erin Notes/Report: Vitamin D, 25-Hydroxy 14.8 30.0-100.0 ng/mL Vitamin D deficiency has been defined by the [place] [employer] and an Endocrine Society practice guideline as a level of serum 25-OH vitamin D less than 20 ng/mL (1,2). The Endocrine Society went on to further define vitamin D insufficiency as a level between 21 and 29 ng/mL (2). 1. IOM ([place] [employer]). 2010. Dietary reference intakes for calcium and D. [place]: The National Academies Press. 2. Silvano IRIZARRY, Christy TREVINO, Gaston COLUNGA, et al. Evaluation, treatment, and prevention of vitamin D deficiency: an Endocrine Society clinical practice guideline. JCEM. 2010; 96(7):1911-30. TSH+Free T4* Reviewed date:10/05/2024 04:06:08 PM Interpretation: Performing Lab:[address], Phone - [phone], [facility]: TSH 6.680 0.450-4.500 uIU/mL T4,Free(Direct) 0.88 0.82-1.77 ng/dL CMP 14 Comprehensive Metabol ic Panel* Reviewed date:10/05/2024 04:06:08 PM Interpretation: Performing Lab:[address], Phone - [phone], [facility]Report: Glucose 192 70-99 mg/dL BUN 14 6-20 mg/dL Creatinine 0.69 0.57-1.00 mg/dL eGFR 120 >59 mL/min/1.73 BUN/Creatinine Ratio 20 9-23 Sodium 140 134-144 mmol/L Potassium 4.7 3.5-5.2 mmol/L Chloride 101 96-106 mmol/L Carbon Dioxide, Total 19 20-29 mmol/L Calcium 9.9 8.7-10.2 mg/dL Protein, Total 6.8 6.0-8.5 g/dL Albumin 4.4 4.0-5.0 g/dL Globulin, Total 2.4 1.5-4.5 g/dL Bilirubin, Total 0.2 0.0-1.2 mg/dL Alkaline Phosphatase 103 44-121 IU/L AST (SGOT) 21 0-40 IU/L ALT (SGPT) 27 0-32 IU/L Lipid Panel* Reviewed date:10/05/2024 04:06:08 PM Interpretation: Performing Lab:[address], Phone - [phone], [facility]Report: Cholesterol, Total 253 100-199 mg/dL Triglycerides 379 0-149 mg/dL HDL Cholesterol 39 >39 mg/dL VLDL Cholesterol Tyrese 70 5-40 mg/dL LDL Chol Calc (NIH) 144 0-99 mg/dL Hemoglobin A1c* Reviewed date:10/05/2024 04:06:08 PM Interpretation: Performing Lab:[address], Phone - [phone], Director - Erin Notes/Report: Hemoglobin A1c 8.0 4.8-5.6 % . Prediabetes: 5.7 - 6.4 Diabetes: >6.4 Glycemic control for adults with diabetes: <7.0 CBC With Differential/Platel et* Reviewed date:10/05/2024 04:06:08 PM Interpretation: Performing Lab:[facility] [place], [address] [facility], [place], Phone - [phone], Director - Erin Notes/Report: WBC 8.3 3.4-10.8 x10E3/uL RBC 4.91 3.77-5.28 x10E6/uL Hemoglobin 14.4 11.1-15.9 g/dL Hematocrit 45.1 34.0-46.6 % MCV 92 79-97 fL MCH 29.3 26.6-33.0 pg MCHC 31.9 31.5-35.7 g/dL RDW 13.6 11.7-15.4 % Platelets 373 150-450 x10E3/uL Neutrophils 57 Not Estab. % Lymphs 34 Not Estab. % Monocytes 6 Not Estab. % Eos 2 Not Estab. % Basos 0 Not Estab. % Neutrophils (Absolute) 4.8 1.4-7.0 x10E3/uL Lymphs (Absolute) 2.8 0.7-3.1 x10E3/uL Monocytes(Absolute) 0.5 0.1-0.9 x10E3/uL Eos (Absolute) 0.2 0.0-0.4 x10E3/uL Baso (Absolute) 0.0 0.0-0.2 x10E3/uL Immature Granulocytes 1 Not Estab. % Immature Grans (Abs) 0.0 0.0-0.1 x10E3/uL Reason For Referral Reason Patient needs and wa nts therapy services. Diagnosis 1 Bipolar 1 disorder, manic, moderate (F31.12) Diagnosis 2 PTSD (post-traumatic stress disorder) (F43.10) Referral Organization [facility] Referring Provider First Name Jillian Referring Provider Last Name Taniya Referring Provider Speciality Psychiatry Ref[facility] Provider [facility] General Notes [facility] Client- Please help set up therapy through central access Referral Priority Routine Medications Medication SIG (Take, Route, Frequency, Duration) Notes Start Date End Date Status Vitamin D (Ergocalciferol) 94436 UNIT 1 capsule Orally once a week for 8 weeks; Duration: 60 days 10/06/2024 Active metFORMIN HCl 500 MG 1 tablet with a margareth l Orally twice a day; Duration: 30 days 10/06/2024 Active OXcarbazepine 300 MG 1 tablet in the mor emily, and 2 tablets at bedtime Orally Twice a day; Duration: 30 days Active QUEtiapine Fumarate 400 MG 1 tablet at b edtime Orally Once a day; Duration: 30 days Active Sertraline HCl 50 MG 1 tablet Orally Onc e a day; Duration: 30 days Active hydrOXYzine Pamoate 25 MG 1 - 2 capsules up to 3 times a day as needed for anxiety (max 100 mg/day) Orally; Duration: 30 days Active Amphetamine-Dextroamphetamin e 15 MG 1 tablet Orally Twice a day; Duration: 30 days Active traZODone HCl 50 MG 1 - 2 tablets at bed time as needed Orally Once a day; Duration: 30 days Active Social History Tobacco Use: Social History Observation Description Date Details (start date - stop date) Never Smoker NA - NA Sex Assigned At : Social History Observation Description Sex Assigned At Female Alcohol Screen (Audit-C) Question Answer Notes Did [...] Problem Status W/U Status Risk Notes Problem Hypothyroidism (09806069) Other specified hypothyroidism (E03.8) Active confirmed Problem Vitamin deficiency (03690770) Vitamin deficiency, unspecified (E56.9) Active confirmed Problem Metabolic syndrome (369992170) Metabolic syndrome (E88.81) Active confirmed Problem Insomnia (754327748) Insomnia (G47.00) Active confirmed Problem Posttraumatic stress disorder (27946267) PTSD (post-traumatic stress disorder) (F43.10) Active confirmed Problem Anxiety (48943593) Anxiety (F41.9) Active confirmed Problem Attention deficit hyperactivity disorder (117401896) ADHD (attention deficit hyperactivity disorder) (F90.9) Active confirmed Problem Bipolar 1 disorder (031628017) Bipolar 1 disorder (F31.9) Active confirmed Problem Vitamin D deficiency (62384257) Vitamin D deficiency (E55.9) Active confirmed Problem Morbid obesity (823853514) Morbid obesity (E66.01) Active confirmed Problem Overweight (245650985) Over weight (E66.3) Active confirmed Problem Recurrent major depression in remission (73664098) Recurrent major depressive disorder, in partial remission (F33.41) 05/14/19 17 Active confirmed Problem Sleep apnea (91840482) Observed sleep apnea (G47.30) Active confirmed Problem Bipolar affective disorder, currently manic, moderate (912717765) Bipolar 1 disorder, manic, moderate (F31.12) 01/14/20 17 Active confirmed Problem Daytime somnolence (941094118576) Excessive daytime sleepiness (G47.19) Active confirmed Problem Seasonal allergic rhinitis (238355270) Seasonal allergic rhinitis, unspecified trigger (J30.2) Active confirmed Problem Cocaine use disorder (7205095814) Cocaine use disorder (F14.10) Active confirmed Problem History of cancer of uterine body (113078279) History of uterine cancer (Z85.42) Active confirmed Problem Cannabis dependence (50224199) Cannabis use disorder, moderate, dependence (F12.20) Active confirmed Vital Signs Heart Rate 87 /min 09/28/2024 Temperature 98.2 degrees Fahrenheit 06/23/2024 Respiratory Rate 16 /min 09/28/2024 Oximetry 98 % 09/28/2024 Blood pressure diastolic 86 mm Hg 09/28/2024 Height 64 in 09/28/2024 Blood pressure systolic 120 mm Hg 09/28/2024 Weight 230.6 lbs 09/28/2024 BMI 39.58 kg/m2 09/28/2024 Encounters Encounter Location Date Provider Diagnosis [facility] [address] [place] [address] 05/19/2024 Jennifer Gaines [facility] [address] [place] [address] 09/29/2024 Nazia Carr [address] [address] 10/28/2023 Jillian Monahan PTSD (post-traumatic stress disorder) F43.10 ; Bipolar 1 disorder F31.9 ; ADHD (attention deficit hyperactivity disorder) F90.9 and Insomnia G47.[address] [address] 11/26/2023 Jillian Monahan PTSD (post-traumatic stress disorder) F43.10 ; Bipolar 1 disorder F31.9 ; ADHD (attention deficit hyperactivity disorder) F90.9 ; Insomnia G47.00 ; Nutritional counseling Z71.3 and Medication management Z79.[address] [address] 12/23/2023 Jillian Monahan PTSD (post-traumatic stress disorder) F43.10 ; ADHD (attention deficit hyperactivity disorder) F90.9 ; Bipolar 1 disorder F31.9 ; Insomnia G47.00 ; Nutritional counseling Z71.3 and Medication management Z79.[address] [address] 01/28/2024 Jillian Monahan PTSD (post-traumatic stress disorder) F43.10 ; ADHD (attention deficit hyperactivity disorder) F90.9 ; Bipolar 1 disorder F31.9 ; Insomnia G47.00 ; Nutritional counseling Z71.3 and Medication management Z79.[address] [address] 03/29/2024 Jillian Monahan PTSD (post-traumatic stress disorder) F43.10 ; ADHD (attention deficit hyperactivity disorder) F90.9 ; Bipolar 1 disorder F31.9 ; Insomnia G47.00 ; Nutritional counseling Z71.3 and Medication management Z79.[address] [address] 04/28/2024 Jillian Monahan PTSD (post-traumatic stress disorder) F43.10 ; ADHD (attention deficit hyperactivity disorder) F90.9 ; Bipolar 1 disorder F31.9 ; Insomnia G47.00 and Medication management Z79.899 [address] [place] [address] 05/17/2024 Jennifer Gaines [facility] new doctor, encounter for Z71.89 ; Screening for deficiency anemia Z13.0 ; Screening for metabolic disorder Z13.228 ; Screening for thyroid disorder Z13.29 ; Screening for diabetes mellitus Z13.1 ; Screening for hyperlipidemia Z13.220 ; Exposure to potential infection Z20.9 ; History of uterine cancer Z85.42 and Cocaine use disorder F14.[address] [address] 06/23/2024 Jillian Monahan PTSD (post-traumatic stress disorder) F43.10 ; ADHD (attention deficit hyperactivity disorder) F90.9 ; Bipolar 1 disorder F31.9 ; Insomnia G47.00 ; Medication management Z79.899 and Nutritional counseling Z71.[address] [address] 09/08/2024 Jillian Monahan Bipolar 1 disorder F31.9 ; ADHD (attention deficit hyperactivity disorder) F90.9 ; PTSD (post-traumatic stress disorder) F43.10 ; Insomnia G47.00 ; Cocaine use disorder F14.10 ; Anxiety F41.9 and Medication management Z79.[address] [address] 09/21/2024 Jillian Monahan ADHD (attention deficit hyperactivity disorder) F90.9 ; Bipolar 1 disorder F31.9 ; PTSD (post-traumatic stress disorder) F43.10 ; Insomnia G47.00 ; Cocaine use disorder F14.10 ; Anxiety F41.9 and Medication management Z79.899 [facility] [address] [place] [address] 09/28/2024 Nazia Carr Vitamin D deficiency E55.9 ; Adult general medical exam Z00.00 ; Screening for hypothyroidism Z13.29 ; Over weight E66.3 ; Screening for hyperlipidemia Z13.220 ; Screening for metabolic disorder Z13.228 ; Screening for deficiency anemia Z13.0 ; Screening for diabetes mellitus Z13.1 and Exposure to potential infection Z20.[address] [address] 10/21/2023 Jillian Monahan Bipolar 1 disorder F31.9 ; PTSD (post-traumatic stress disorder) F43.10 ; ADHD (attention deficit hyperactivity disorder) F90.9 and Insomnia G47.[address] [address] 02/23/2024 Jillian Monahan [address] [address] 02/24/2024 Jillian Monahan [address] [address] 02/29/2024 Jillian Monahan PTSD (post-traumatic stress disorder) F43.10 ; Insomnia G47.00 and ADHD (attention deficit hyperactivity disorder) F90.[address] [address] 03/07/2024 Jillian Monahan [address] [address] 03/08/2024 Jillian Monahan Bipolar 1 disorder F31.9 ; PTSD (post-traumatic stress disorder) F43.10 ; Insomnia G47.00 and ADHD (attention deficit hyperactivity disorder) F90.9 [facility] [address] [place] [address] 06/16/2024 Jennifer Gaines [facility] [address] [place] [address] 06/27/2024 Jennifer Gaines [address] [address] 07/26/2024 Jillian Monahan [address] [address] 08/02/2024 Jillian Monahan [address] [address] 08/08/[address] [address] 08/29/[address] [address] 09/05/[address] [address] 10/04/2024 Nazia Carr Prediabetes R73.09 and Vitamin deficiency, unspecified E56.9 Assessments Encounter Date Diagnosis (ICD Code) Assessment Notes Treatment Notes Treatment Clinical Notes Section Notes 10/21/2023 Bipolar 1 disorder (ICD-10 - F31.9) [...] PTSD (post-traumatic stress disorder) (ICD-10 - F43.10) 09/08/2024 ADHD (attention deficit hyperactivity disorder) (ICD-10 - F90.9) 09/08/2024 Bipolar 1 disorder (ICD-10 - F31.9) Reports not needing refills for sertraline and quetiapine right now. Psychotherapy recommended. Referral sent. 09/21/2024 ADHD (attention deficit hyperactivity disorder) (ICD-10 - F90.9) [place] concerns. 09/28/2024 Vitamin D deficiency (ICD-10 - E55.9) 09/28/2024 Adult general medical exam (ICD-10 - Z00.00) 10/04/2024 Vitamin deficiency, unspecified (ICD-10 - E56.9) 10/04/2024 Prediabetes (ICD-10 - R73.09) 09/28/2024 Screening for hypothyroidism (ICD-10 - Z13.29) 09/21/2024 Bipolar 1 disorder (ICD-10 - F31.9) Psychotherapy recommended. Referral sent. 09/08/2024 PTSD (post-traumatic stress disorder) (ICD-10 - F43.10) Psychotherapy recommended. Referral sent. 06/23/2024 ADHD (attention deficit hyperactivity disorder) (ICD-10 [...] PTSD (post-traumatic stress disorder) (ICD-10 - F43.10) 10/21/2023 ADHD (attention deficit hyperactivity disorder) (ICD-10 [...] due to side effect of teeth grinding. 09/08/2024 Insomnia (ICD-10 - G47.00) 09/21/2024 PTSD (post-traumatic stress disorder) (ICD-10 - F43.10) Psychotherapy recommended. Referral sent. 09/28/2024 Over weight (ICD-10 - E66.3) 09/28/2024 Screening for hyperlipidemia (ICD-10 - Z13.220) 09/08/2024 Cocaine use disorder (ICD-10 - F14.10) Recommend a combination of 12-step programs, outpatient programs, and psychotherapy to maintain recovery in the outpatient setting. 09/21/2024 Insomnia (ICD-10 - G47.00) 06/23/2024 Insomnia (ICD-10 - G47.00) 05/17/2024 Screening for diabetes mellitus (ICD-10 - Z13.1) 04/28/2024 Medication management (ICD-10 - Z79.899) May self-administer medications or be administered own oral medications per [place] protocols. Provided informed consent with understanding of [...] - G47.00) 10/21/2023 Insomnia (ICD-10 - G47.00) 11/26/2023 Medication management (ICD-10 - Z79.899) Continue psychotherapy as scheduled. May self-administer medications or be administered own oral medications per [place] protocols. Provided informed consent with understanding of [...] or be administered own oral medications per [place] protocols. Provided informed consent with understanding of side effects, adverse effects, risks and benefits as well as alternative treatments as previously discussed and with the above recommended medications & other aspects of the treatment program. Agrees to return sooner if symptoms worsen or suicidal or homicidal ideations occur. Continue psychotherapy as scheduled. May self-administer medications or be administered own oral medications per [place] protocols. Provided informed consent with understanding of side effects, adverse effects, risks and benefits as well as alternative treatments as previously discussed and with the above recommended medications & other aspects of the treatment program. Agrees to return sooner if symptoms worsen or suicidal or homicidal ideations occur. Labs monitored by PCP. 09/08/2024 Anxiety (ICD-10 - F41.9) 09/21/2024 Cocaine use disorder (ICD-10 - F14.10) Recommend a combination of 12-step programs, outpatient programs, and psychotherapy to maintain recovery in the outpatient setting. 09/28/2024 Screening for metabolic disorder (ICD-10 - Z13.228) 09/28/2024 Screening for deficiency anemia (ICD-10 - Z13.0) 09/21/2024 Anxiety (ICD-10 - F41.9) Psychotherapy recommended. Referral sent. 09/08/2024 Medication management (ICD-10 - Z79.899) May self-administer medications or be administered own oral medications per [place] protocols. Provided informed consent with understanding of [...] or be administered own oral medications per [place] protocols. Provided informed consent with understanding of [...] or be administered own oral medications per [place] protocols. Provided informed consent with understanding of [...] or be administered own oral medications per [place] protocols. Provided informed consent with understanding of side effects, adverse effects, risks and benefits as well as alternative treatments as previously discussed and with the above recommended medications & other aspects of the treatment program. Agrees to return sooner if symptoms worsen or suicidal or homicidal ideations occur. 05/17/2024 History of uterine cancer (ICD-10 - Z85.42) 09/21/2024 Medication management (ICD-10 - Z79.899) May self-administer medications or be administered own oral medications per [place] protocols. Provided informed consent with understanding of side effects, adverse effects, risks and benefits as well as alternative treatments as previously discussed and with the above recommended medications & other aspects of the treatment program. Agrees to return sooner if symptoms worsen or suicidal or homicidal ideations occur. Labs monitored by PCP. 09/28/2024 Screening for diabetes mellitus (ICD-10 - Z13.1) 09/28/2024 Exposure to potential infection (ICD-10 - Z20.9) 05/17/2024 Cocaine use disorder (ICD-10 - F14.10) 10/28/2023 Other Continue psychotherapy as scheduled. May self-administer medications or be administered own oral medications per [place] protocols. Provided informed consent with understanding of [...] may self-administer their own oral medications per [place] Protocol. 09/28/2024 Other Complications of uncontrolled Diabetes reviewed including: renal, cardiovascular, neurological and opthalmological. Importance of lifestyle changes including low CHO diet and exercise as tolerated. Importance of BS monitoring discussed. Target BS 90-130 and to call if persistently <70 or >300. Plan Of Treatment Next Appt Details Provider Name:Jillian Moreno mi, 10/24/2024 04:30:00 PM, [address] [facility] , [place], [address], Insurance Providers Payer Name Payer Address Payer Phone Subscriber Number Group Number Insured Name Patient Relationship to Insured Coverage Start Date Coverage End Date [facility] Attn Claims Department [address] [place] [phone] [id number] Hilaria Teixeira Self - patient is the insured 7 [facility] Attn Claims Department [address] [place] [address] [phone] [id number] Hilaria Teixeira Self - patient is the insured 1 Medical (General) History Medical History History ICD Code obesity prediabetes dyslipidemia metabolic syndrome Mood disorder Bipolar seasonal allergies cancer-uterine Surgical History Surgery Date(Month/Year) hysterectomy 11/2022 Hospitalization History Reason Date(Month/Year) Child 04/2014 5d [facility] 08/2024
--- OUTSIDE RECORDS SUMMARY | 2024-10-14 12:54 | XMS_ITS | Encounter Summary ---
Author Organization [facility] Health Address [address] [place] [address] Care Team Providers Care Plush Dresser Name Role Phone Smiley Camarillo DO Primary Care Provider [phone] Smiley Camarillo DO Unavailable Reason for Visit * Reason Onset Date Comments Concerns 12/10/2022 Encounter Details Date Type Department Care Team (Late st Contact Info) Description 12/10/2022 Telephone [facility] - SYSTEM DEVELOPMENT MANAGER [address] [place] [address] Chris Herbert MD [address] [facility] [address] [place] [address] Concerns Social History Tobacco Use Types Packs/Day Years Used Date Smoking Tobacco: Every Day Cigarettes 0.5 13.6 Started: 2011 AUDIT-C Answer Date Recorded Q1: [...] about patient incision that is bleeding. CB# [phone] documented in this encounter Plan of Treatment Upcoming Encounters Date Type Department Care Team (Late st Contact Info) Description 02/08/2025 3:30 PM FACT CHECKER Office Visit [facility] - SYSTEM DEVELOPMENT MANAGER [address] [place] [address] Chris Herbert MD [address] [facility] [address] [place] [address] documented as of this encounter Visit Diagnoses Not on filedocumented in this encounter Care Teams Plush Dresser Relationship Specialty Start Date End Date Smiley Camarillo DO [address] [place] [phone] PCP - General Obstetrics and Gynecology 07/19/21 Smiley Camarillo DO [address] [place] [address] Obstetrics and Gynecology 07/19/21 documented as of this encounter
--- OUTSIDE RECORDS SUMMARY | 2024-10-14 12:54 | XMS_ITS ---
Author Organization [facility] Address [address] [place] [address] Care Team Providers Care Rotary Cutter Name Role Phone Jillian Monahan Primary Care Provider Kiana Worley Unavailable [phone] Nazia Carr Unavailable REASON FOR VISIT labs Social History Sex Assigned At : Social History Observation Description Sex Assigned At Female Encounters Encounter Location Date Provider Diagnosis [place] [address] [place] [address] 09/29/2024 Nazia Carr Plan Of Treatment Next Appt Details Provider Name:Jillian Moreno wy, 10/24/2024 04:30:00 PM, [address] [facility], [place], [address], Progress Notes * Hilaria TOLENTINODOB:[birth year] (29 yo F)Acc No.[id number]:09/29/2024 UNLOCKED PROGRESS NOTE Patient: Hilaria ORELLANA Provider: Rosalia Carr, MSN, OVERNIGHT CASHIER, DESIGN ASSEMBLER-BC, DESIGN ASSEMBLER-C :1995 A ge:29 Y S ex:Female Date:09/29/2024 Address:[address], [place] Pcp:Jillian Monahan Check In:10:35 AM MEDART OPERATOR Subjective: * Chief Complaints: * 1 . Labs. * Medical History: Objective: * Vitals: Assessment: Plan: * Treatment: * * Electronic signature of Fish Carr APRN, [id number] on 10/14/2024 at 12:53 PM CDT Sign off status: Pending * Provider: Rosalia Carr, ANGEL, OVERNIGHT CASHIER, DESIGN ASSEMBLER-BC, DESIGN ASSEMBLER-C Date: 0 09/29/2024 Generated for Printing/Faxing/eTransmitting on: 0 10/14/2024 12:53 PM CDT
--- OUTSIDE RECORDS SUMMARY | 2024-10-14 12:54 | XMS_ITS | Clinical Summary ---
Author Organization [facility] Address [facility] [place] [address] Care Team Providers Care Contract Engineer Name Role Phone Yissel Wu MD Primary Care Provider [phone] Allergies No known active allergies Medications methylPREDNISol one, KATHARINA, 4 MG tablet Take 1 tablet (4 mg total) by mouth daily. 6 TABS ON DAY ONE, 5 TABS DAY 2, 4 TABS DAY 3, 3 TABS DAY 4, 2 TABS DAY 5, AND 1 TABLET DAY SIX 1 each 0 Active azithromycin (ZITHROMAX) 250 MG tablet Use 2 tablets on day 1 and 1 tablet the remaining 4 days 6 tablet 0 Active pantoprazole EC (PROTONIX) 40 MG tablet Take 1 tablet (40 mg total) by mouth daily. 30 tablet 5 Active Encounters Date Type Department Care Team Description 08/18/2024 8:41 PM CDT - 08/19/2024 2:16 AM CDT Emergency [facility] [place] [address] Sharyn Damon MD Jerome, Jason P, MD,PHD Chest Pain Discharge Disposition: Home or Self Care (Routine Discharge) 08/18/2024 Travel from Last 3 Months Immunizations Immunization Administration Dates Next Due Tdap (Boostrix) 11/22/2018 Social History Tobacco Use Types Packs/Day Years Used Date Smoking Tobacco: Former Cigarettes Q uit: 02/2024 Smokeless Tobacco: Never Tobacco Cessation:Counseling Given: Not Answered Alcohol Use Standard Drinks/Week Comments Not Currently 0 (1 standard drink = 0.6 oz pur e alcohol) occassional AUDIT-C Answer Date Recorded Frequency of Alcohol Consumption Never 01/09/2018 Average Number of Drinks Not on file 018 Frequency of Binge Drinking Not on file 12/22 Comments No Sex and Gender Information Value Date Recorded Sex Assigned at Not on file Legal Sex Female 11:25 PM CDT Gender Identity Not on file Sexual Orientation Not on file Last Filed Vital Signs Vital Sign Reading Time Taken Comments Blood Pressure 117/60 08/19/2024 2:00 AM CDT Pulse 77 08/19/2024 2:00 AM CDT Temperature 36.6 C (97.9 F) 09/03/2022 8:41 PM CDT Respiratory Rate 15 08/19/2024 2:00 AM CDT Oxygen Saturation 98% 08/19/2024 2:00 AM CDT Inhaled Oxygen Concentration - - Weight 114.2 kg (251 lb 12.3 oz) 09/03/2022 8:41 PM CDT Height 160 cm (5' 3) 09/03/2022 8:41 PM CDT Body Mass Index 44.6 09/03/2022 8:41 PM CDT Plan of Treatment Health Maintenance Due Date Last Done Comments Annual Physical 1997 Hepatitis C 01/06/2012 Hepatitis B Vaccines (1 of 3 - 19+ 3-dose series) 2013 HPV Vaccines (1 - 3-dose SCD M series) 2021 COVID-19 Vaccine ( - 2023-2 5 season) 2023 DTaP, Tdap and Td Vaccines ( 2 - Td or Tdap) 11/22/2028 11/22/2018 Meningococcal B Vaccine Aged Out No l onger eligible based on patient's age to complete this topic Meningococcal Vaccine Aged Out No vinay fransisco eligible based on patient's age to complete this topic Pneumococcal Vaccine: Pediat rics (0 to 5 Years) and At-Risk Patients (6 to 49 Years) Aged Out No longer eligi ble based on patient's age to complete this topic RSV Immunizations Under 20 Months Aged Out No longer eligible based on patient's age to complete this topic Procedures Procedure Name Priority Date/Time Associated Diagnosis Comments ECG 12-LEAD STAT 08/19/2024 1:00 AM CDT TROPONIN, QUANT STAT 08/19/2024 1:00 AM CDT CHORIONIC GONADOTROPIN HCG QL Routine 08/19/2024 1:00 AM CDT CTA CHEST PE PROTOCOL STAT 08/19/2024 12:53 AM CDT D-DIMER, QUANTITATIVE STAT 08/18/2024 11:14 PM CDT ECG 12-LEAD STAT 08/18/2024 10:31 PM CDT TROPONIN, QUANT STAT 08/18/2024 10:31 PM CDT XR CHEST PORTABLE STAT 08/18/2024 9:0 1 PM CDT LIPASE STAT 08/18/2024 8:44 PM CDT TROPONIN, QUANT STAT 08/18/2024 8:44 PM CDT COMPREHENSIVE METABOLIC PANEL STAT 08/18/2024 8:44 PM CDT CBC W/DIFF AUTOMATED STAT 08/18/2024 8:44 PM CDT ECG 12-LEAD STAT 08/18/2024 8:38 PM CDT from Last 3 Months Results * ECG 12 lead (08/19/2024 1:00 AM CDT) Only the most recent of3 resultswithin the time period is included. 08/19/2024 1:00 AM CDT Narrative [facility] ([place] RAD - 08/19/2024 7:19 AM CDT [facility] [address] Test Date: 2024-08-19 Pat Name: HILARIA TOLENTINO Department: 41 Room: [place] [address] Gender: Female Tool Profiling Machine Set Up Operator: : 1995 Requested By: SHARYN DAMON Order Number: [id number] Reading MD: Vadim Galo Measurements Intervals Cranks Rate: 69 P: 25 MA: 169 QRS: 46 QRSD: 85 T: 25 QT: 378 QTc: 406 Interpretive Statements SINUS RHYTHM Poor R wave progression consistent with lead placement, COPD, left ventricular hypertrophy or previous SD Compared to ECG 08/18/2024 22:31:44 Sinus arrhythmia no longer present Left ventricular hypertrophy no longer present Procedure Note Vadim Galo MD - 08/19/[address] Test Date: 2024-08-19 Pat Name: HILARIA TOLENTINO Department: 41 Room: [place] [address] Gender: Female Tool Profiling Machine Set Up Operator: : 1995 Requested By: SHARYN DAMON Order Number: [id number] Reading MD: Vadim Galo Measurements Intervals Cranks Rate: 69 P: 25 MA: 169 QRS: 46 QRSD: 85 T: 25 QT: 378 QTc: 406 Interpretive Statements SINUS RHYTHM Poor R wave progression consistent with lead placement, COPD, left ventricular hypertrophy or previous SD Compared to ECG 08/18/2024 22:31:44 Sinus arrhythmia no longer present Left ventricular hypertrophy no longer present us Sharyn Damon MD ECG ORDERABLES Final Result Performing Organization Address City/[facility] Co de Phone Number [facility] ([place] * Qualitative HCG (08/19/2024 1:00 AM CDT) PREG SCREEN-SERUM NEGATIVE 08/19/2024 1:[address] [facility] 08/19/2024 1:0 0 AM CDT us Anthony Carroll MD,PHD LABORATORY Final Resu lt Performing Organization Address City/[facility] Co de Phone Number [facility] [address] [place] [address], [place] [phone] * TROPONIN, QUANT (08/19/2024 1:00 AM CDT) Only the most recent of3 resultswithin the time period is included. TROPONIN I HIGH SENSITIVITY <3 <54 ng/L 08/19/2024 1:[address] [facility] Comment: HIGH DOSES OF BIOTIN, TROPONIN-SPECIFIC AUTOANTIBODIES, AND ANTIBODY THERAPY CONTAINING HAMA MAY INTERFERE WITH THIS TEST RESULT. CORRELATION TO CLINICAL HISTORY AND PRESENTATION RECOMMENDED. 08/19/2024 1:00 AM CDT Sharyn Damon MD LABORATORY Final Result [facility] [address] [place] [address], [place] [phone] * CTA CHEST PE PROTOCOL (08/19/2024 12:53 AM CDT) Anatomical Region Laterality Modality Chest Computed Tomogra phy 08/19/2024 1:21 AM CDT Impressions 08/19/2024 1:26 AM CDT IMPRESSION: ===== 1. No central pulmonary embolus. Limited evaluation for distal emboli due to bolus timing. 2. Patchy infiltrates in the right upper lobe concerning for developing pneumonia. 3. Mild bronchitis. 4. Mild cardiomegaly. Referred By: Interpreted By: Fernando Mccabe MD, 08/19/2024 1:21 AM Narrative 08/19/2024 1:26 AM CDT [facility] [address] [place], [place] [address] EXAMINATION: CTA CHEST WITH CONTRAST EXAM DATE/TIME: 08/19/2024 12:38 AM REASON FOR EXAM: chest pain Chest pain began 2 days ago while driving. Pain when burping. COMPARISON: No prior CT chest TECHNIQUE: Axial CT images of the chest are obtained following uneventful intravenous administration of 100 cc Isovue-370. Subsequent coronal and sagittal reformatted sequences are greater for evaluation. In addition 3-D rotational MIP imaging of the thoracic arterial vasculature is created on a separate workstation for review. A dose lowering technique was used for this procedure, which may include, but is not limited to, dose reduction technique, automated exposure control, iterative reconstruction, ALARA (As Low As Reasonably Achievable), or Image Gently techniques. FINDINGS: Central pulmonary arteries are well-opacified with no evidence of pulmonary embolism. Limited evaluation for distal emboli due to poor bolus timing. Most of the contrast is in the right axillary and subclavian vein as well as SVC. Heart size minimally enlarged. No pericardial effusion. Left aortic arch. Thoracic aorta normal in caliber throughout. No pleural effusion. No pneumothorax. Patchy infiltrates are seen in the right upper lobe. No consolidative changes. No convincing pulmonary nodule or mass. Central airways are patent. Minimal bronchial wall thickening bilaterally. No acute abnormalities in the visualized upper abdomen. Bone level imaging shows no destructive osseous lesions. No axillary or mediastinal lymphadenopathy. ===== Procedure Note Fernando Mccabe MD - 08/19/[address] [address] EXAMINATION: CTA CHEST WITH CONTRAST EXAM DATE/TIME: 08/19/2024 12:38 AM REASON FOR EXAM: chest pain Chest pain began 2 days ago while driving. Pain when burping. COMPARISON: No prior CT chest TECHNIQUE: Axial CT images of the chest are obtained following uneventfulintravenous administration of 100 cc Isovue-370. Subsequent coronal andsagittal reformatted sequences are greater for evaluation. In addition 3-Drotational MIP imaging of the thoracic arterial vasculature is created bolivar separate workstation for review. A dose lowering technique was used forthis procedure, which may include, but is not limited to, dose reductiontechnique, automated exposure control, iterative reconstruction, ALARA (AsLow As Reasonably Achievable), or Image Gently techniques. FINDINGS: Central pulmonary arteries are well-opacified with no evidence ofpulmonary embolism. Limited evaluation for distal emboli due to poorbolus timing. Most of the contrast is in the right axillary andsubclavian vein as well as SVC. Heart size minimally enlarged. Nopericardial effusion. Left aortic arch. Thoracic aorta normal in caliberthroughout. No pleural effusion. No pneumothorax. Patchy infiltratesare seen in the right upper lobe. No consolidative changes. Noconvincing pulmonary nodule or mass. Central airways are patent. Minimalbronchial wall thickening bilaterally. No acute abnormalities in thevisualized upper abdomen. Bone level imaging shows no destructive osseouslesions. No axillary or mediastinal lymphadenopathy. ===== IMPRESSION: ===== 1. No central pulmonary embolus. Limited evaluation for distal emboli dueto bolus timing. 2. Patchy infiltrates in the right upper lobe concerning for developingpneumonia. 3. Mild bronchitis. 4. Mild cardiomegaly. Referred By: Interpreted By: Fernando Mccabe MD, 08/19/2024 1:21 AM us Anthony Carroll MD,PHD CT Final Resu lt * (ABNORMAL) D-DIMER, QUANTITATIVE (08/18/2024 11:14 PM CDT) D-DIMER 537(HH) 0 - 500 ng{FEU}/mL 08/19/2024 12:[address] [facility] Comment: D-Dimer values less than or equal to 500 ng/mL FEU have a negative predictive value of >95% for exclusion of deep vein thrombosis and pulmonary embolism. In patients over 50 (who tend to have higher normal baseline D-Dimer values), recent studies suggest age-adjusted D-Dimer cutoff values (calculated as: age [years] x 10 ng/mL) result in equivalent outcomes and no additional false negative findings. Successful Call: DDIMR called 08/19/2024 00:06 AM to ROOM [place] [address] (Syd/LORRIE CALI) by [id number]. Read Back: Yes 08/18/2024 11:1 4 PM CDT Sharyn Damon MD LABORATORY Final Result [facility] [address] [place] [address], [place] [phone] * XR CHEST PORTABLE (08/18/2024 9:01 PM CDT) Anatomical Region Laterality Modality Chest Radiographic Charity ging 08/18/2024 9:03 PM CDT Impressions 08/18/2024 9:07 PM CDT Impression: Minimal nonspecific right upper lobe opacity. Referred By: Interpreted By: Juan Carlos Bangura MD, 08/18/2024 9:03 PM Narrative 08/18/2024 9:07 PM CDT [facility] [address] [place], [place] [address] Examination: Chest 1 view portable History: Chest pain DATE/TIME: 08/18/2024 8:50 PM Comparison: None Technique: AP upright portable view of the chest was obtained. Findings: Small area of vague hazy or infiltrative opacity in the right upper lobe, nonspecific but can be inflammatory. Left lung is clear. No pleural effusion or pneumothorax. Heart size is normal. No acute osseous and normality. Procedure Note Juan Carlos Bangura MD - 08/18/2024 [facility] [address] [place], [place] [address] Examination: Chest 1 view portable History: Chest pain DATE/TIME: 08/18/2024 8:50 PM Comparison: None Technique: AP upright portable view of the chest was obtained. Findings: Small area of vague hazy or infiltrative opacity in the rightupper lobe, nonspecific but can be inflammatory. Left lung is clear. Nopleural effusion or pneumothorax. Heart size is normal. No acute osseousand normality. Impression: Minimal nonspecific right upper lobe opacity. Referred By: Interpreted By: Juan Carlos Bangura MD, 08/18/2024 9:03 PM Sharyn Damon MD GENERAL IMAGING Final Result * (ABNORMAL) COMPREHENSIVE METABOLIC PANEL (08/18/2024 8:44 PM CDT) Pathologist [facility] GLUCOSE 205(H) 70 - 99 MG/DL 08/18/2024 9:[address] [facility] BUN 14 7 - 18 MG/DL 08/18/2024 9:[address] [facility] CREATININE S/P/B 0.61 0.55 - 1.02 MG/DL 08/18/2024 9:[address] [facility] SODIUM S/P/B 137 136 - 145 MMOL/L 08/18/2024 9:[address] [facility] POTASSIUM S/P/B 3.8 3.5 - 5.1 MMOL/L 08/18/2024 9:[address] [facility] CHLORIDE S/P/B 105 97 - 115 MMOL/L 08/18/2024 9:[address] [facility] CO2 24.3 21 - 32 MMOL/L 08/18/2024 9:[address] [facility] CALCIUM S/P/B 9.0 8.5 - 10.1 MG/DL 08/18/2024 9:[address] [facility] BILIRUBIN TOTAL S/P/B 0.3 0.2 - 1.2 MG/DL 08/18/2024 9:[address] [facility] Comment: THIS ASSAY IS NOT RECOMMENDED FOR PATIENTS UNDERGOING TREATMENT WITH ELTROMBOPAG DUE TO THE POTENTIAL FOR FALSELY ELEVATED RESULTS. TOTAL PROTEIN S/P/B 7.0 6.4 - 8.2 G/DL 08/18/2024 9:[address] [facility] ALBUMIN S/P/B 3.4 3.4 - 5.0 G/DL 08/18/2024 9:[address] [facility] AST 24 15 - 37 U/L 08/18/2024 9:[address] [facility] ALT 39 14 - 55 U/L 08/18/2024 9:[address] [facility] ALKALINE PHOSPHATASE S/P/B 115 50 - 136 U/L 08/18/2024 9:[address] [facility] ANION GAP 7.7 2 - 10 MMOL/L 08/18/2024 9:[address] [facility] BUN CREATININE RATIO 23.1 6 - 26 08/18/2024 9:[address] [facility] A/G RATIO 0.9(L) 1.0 - 2.0 RATIO 08/18/2024 9:[address] [facility] GFR ESTIMATE >90 >90 ML/MIN/1.7 3 M2 08/18/2024 9:[address] [facility] Comment: NOTE: eGFR is not calculated for patients <18 years of age or gender unknown. This is an estimated GFR calculation using the new CKD EPI creatinine equation without race and so does not require a correction factor for race. This estimated GFR should not be used for calculating drug doses. 08/18/2024 8:44 PM CDT us Sharyn Damon MD LABORATORY Final Result [facility] [address] [place] [address], [place] [phone] * (ABNORMAL) CBC W/DIFF AUTOMATED (08/18/2024 8:44 PM CDT) [facility] WBC 9.75 4.5 - 11.0 x10'3/uL 08/18/2024 9:[address] [facility] RBC 4.40 4.20 - 5.40 x10'6/uL 08/18/2024 9:[address] [facility] HGB 13.0 12.0 - 16.0 G/DL 08/18/2024 9:[address] [facility] HCT 37.5(L) 38.0 - 48.0 % 08/18/2024 9:[address] [facility] MCV 85.2 81.0 - 99.0 FL 08/18/2024 9:[address] [facility] MCH 29.5 27.0 - 31.0 PG 08/18/2024 9:[address] [facility] MCHC 34.7 32.0 - 36.0 G/DL 08/18/2024 9:[address] [facility] RDW 13.7 11.5 - 14.5 % 08/18/2024 9:[address] [facility] PLT 255 130 - 400 x10'3/uL 08/18/2024 9:[address] [facility] MPV 9.1(L) 9.3 - 12.2 FL 08/18/2024 9:[address] [facility] DIFFERENTIAL TYPE AUTOMATED DIFFERENTIAL 08/18/2024 9:[address] [facility] NEUTROPHILS % 60.6 % 08/18/2024 9:[address] [facility] LYMPHOCYTES % 32.3 % 08/18/2024 9:[address] [facility] MONOCYTES % 4.6 % 08/18/2024 9:[address] [facility] EOSINOPHILS 1.6 % 08/18/2024 9:[address] [facility] BASOPHILS 0.3 % 08/18/2024 9:[address] [facility] IMMATURE GRANS % 0.6 % 08/19/19 9:[address] [facility] ABS. NEUTROPHILS 5.90 1.80 - 7.70 x10'3/uL 08/18/2024 9:[address] [facility] ABS. LYMPHOCYTES 3.15 1.00 - 4.80 x10'3/uL 08/18/2024 9:[address] [facility] ABS. MONOCYTES 0.45 0.24 - 0.86 x10'3/uL 08/18/2024 9:[address] [facility] ABS. EOSINOPHILS 0.16 0.04 - 0.36 x10'3/uL 08/18/2024 9:[address] [facility] ABS. BASOPHILS 0.03 0.01 - 0.08 x10'3/uL 08/18/2024 9:[address] [facility] ABS. IMMATURE GRANULOCYTES 0.06 0.00 - 0.49 x10'3/uL 08/18/2024 9:[address] [facility] 08/18/2024 8:44 PM CDT us Sharyn Damon MD LABORATORY Final Result [facility] [address] [place] [address], * LIPASE (08/18/2024 8:44 PM CDT) LIPASE 45 13 - 75 UNITS/L 08/18/2024 9:[address] [facility] 08/18/2024 8:44 PM CDT us Bela GOMES LABORATORY Final Result [facility] [address] [place] [address], [place] [phone] from Last 3 Months Insurance [place] Care Teams Contract Engineer Relationship Specialty Start Date End Date Yissel Wu MD [address] [place] [address] PCP - General FAMILY PRACTICE 12/19/21
--- OUTSIDE RECORDS SUMMARY | 2024-10-14 12:54 | XMS_ITS | Clinical Summary ---
Author Organization [facility] [employer] Address [address] [place] [address] Care Team Providers Care Superintendent Police Name Role Phone Smiley Camarillo DO Primary Care Provider Smiley Camarillo DO Unavailable Source Comments [facility],non-owned Affiliates and Associated Physician Practices is amultiple site organization consisting of ambulatory clinics and hospital sitesin [place], [place], [place] and [place]. This disclosure is being madepursuant to the Care Everywhere program and may not contain all information available regarding this patient. Last updated 17.[facility] Allergies No known active allergies Medications * [...] (12/04/2022): Polycystic ovarian syndrome;Recorded Elsewhere: No Location: [facility] Source: EHR Chronic: N Practice ID: [id number] Billable Time: 11:00:00 AM Polycystic ovarian syndrome;Recorded Elsewhere: No Location: [facility] Source: EHR Chronic: N Practice ID: [id number] [...] Comments Blood Pressure 128/78 02/08/2024 3:40 PM ELECTROTHERAPIST Pulse 83 05/08/2022 3:59 PM ELECTROTHERAPIST Temperature 35.6 C (96 F) 05/08/2022 3:59 PM ELECTROTHERAPIST Respiratory Rate 16 01/27/2022 3:52 PM ELECTROTHERAPIST Oxygen Saturation 99% 05/08/2022 3:59 PM ELECTROTHERAPIST Inhaled Oxygen Concentration - - Weight 113.3 kg (249 lb 11.2 oz) 02/08/2024 3:40 PM ELECTROTHERAPIST Height 160 cm (5' 3) 02/08/2024 3:40 PM ELECTROTHERAPIST Body Mass Index 44.23 02/08/2024 3:40 PM ELECTROTHERAPIST Plan of Treatment Upcoming Encounters Date Type Department Care Team (Late st Contact Info) Description 02/08/2025 3:30 PM ELECTROTHERAPIST Office Visit [facility] - PROCESS COORDINATOR [address] [place] [address] Chris Herbert MD [address] [place] [address] Health Maintenance Due Date Last Done Comments HIV SCREENING 2009 HEPATITIS C SCREENING 01/01/2012 DTAP/TDAP/TD VACCINES (1 - Tdap) 2013 HEPATITIS B VACCINE (1 of 3 - 19+ 3-dose series) 2013 PNEUMOCOCCAL VACCINE (1 of 2 - PCV) 2013 HPV VACCINE (1 - 3-dose SCDM series) 2021 DIABETES RETINOPATHY SCREENING 12/04/2022 DIABETES-FOOT EXAM WITH MONOFILAMENT 12/04/2022 DIABETES-HGB A1C 05/21/2023 11/19/2022 DIABETES-SERUM CREATININE 11/20/20232022, 11/19/2022, 01/27/2022, Additional history exists COVID-19 VACCINE (2 - season) 2023 08/26/2020 DEPRESSION SCREENING 03/23/2024 DIABETES - URINE PROTEIN SCREENING 03/23/2024 INFLUENZA VACCINE (#1) 2024 02/06/2022, 2021 PAP SMEAR 11/26/2025 11/26/2022, 11/26/2022 ZOSTER VACCINE [...] COMPREHENSIVE METABOLIC PANEL STAT 01/27/2022 12:58 PM ELECTROTHERAPIST from Last 3 Months or Most Recently Relevant to Health Maintenance Results * (ABNORMAL) COMPREHENSIVE METABOLIC PANEL (01/27/2022 12:58 PM ELECTROTHERAPIST) Glucose 111(H) 70 - 105 mg/dL 01/27/2022 1:20 PM ELECTROTHERAPIST [facility] Sodium 138 136 - 145 mmol/L 01/27/2022 1:20 PM ELECTROTHERAPIST [facility] Potassium 4.1 3.5 - 5.1 mmol/L 01/27/2022 1:20 PM [facility] Chloride 105 98 - 107 mmol/L 01/27/2022 1:20 PM [facility] CO2 22(L) 23 - 31 mmol/L 01/27/2022 1:[address] [facility] Calcium 9.2 8.4 - 10.4 mg/dL 01/27/2022 1:20 PM ELECTROTHERAPIST [facility] Anion Gap 11 8 - 18 mmol/L 01/27/2022 1:20 PM ELECTROTHERAPIST [facility] BUN 9 7 - 18.7 mg/dL 01/27/2022 1:[address] [facility] Creatinine 0.68 0.57 - 1.11 mg/dL 01/27/2022 1:[address] [facility] Alkaline Phosphatase 96 40 - 150 U/L 01/27/2022 1:20 PM ELECTROTHERAPIST [facility] ALT 47 0 - 61 U/L 01/27/2022 1:[address] [facility] AST 30 5 - 34 U/L 01/27/2022 1:[address] [facility] Protein Total 7.5 6.4 - 8.3 gm/dL 01/27/2022 1:[address] [facility] Albumin 4.2 3.5 - 5.2 gm/dL 01/27/2022 1:[address] [facility] Bilirubin Total 0.4 0.2 - 1.2 mg/dL 01/27/2022 1:[address] [facility] eGFR by CKD-EPI >90 >=90 mL/min/1.7 3 m2 01/27/2022 1:20 PM ELECTROTHERAPIST [facility] Blood BLOOD SPECIMEN / Unknown Venipuncture / Unknown 01/27/2022 12:58 PM ELECTROTHERAPIST 01/27/2022 1:03 PM ELECTROTHERAPIST Latanya Bradley [facility] - CHEMISTRY ORDERAB LES Final Result [facility] [address] [place] [address] from Last 3 Months or Most Recently Relevant to Health Maintenance Insurance [facility] [place] [address] Care Teams Superintendent Police Relationship Specialty Start Date End Date Smiley Camarillo DO [address] [place] [phone] PCP - General Obstetrics and Gynecology 07/19/21 Smiley Camarillo DO [address] [place] [phone] Obstetrics and Gynecology 07/19/21
--- OUTSIDE RECORDS SUMMARY | 2024-10-14 12:54 | XMS_ITS | Data Portability ---
Author Organization [facility] Address [address] [place] [address] Assessment Encounter Date Assessment Date Assessment LastModified [...] a year unless there are new symptoms. [place], [place] Not available 09/02/2023 15:51:01 09/05/2024 09/05/2024 Annual gynecological exam performed. Patient will come back in a year unless there are new symptoms. [email or web address] Not available 09/05/2024 11:14:03 Plan of Treatment Reminders Order Date Submit Date Provider Last Modified By Organization Details Last Modified Time Details Appointments None recorded. Lab hbcab (hepatitis B core Ab) igm, serum 2024 025 [facility] (Lab), [address], [place], [address], 5 12:48:43 HBsAg (hepatitis B surface Ag), serum 2024 025 [facility] (Lab), [address], [place], [address], 5 12:48:41 hepatitis C virus Ab, serum 2024 025 [facility] (Lab), [address], [place], [address], 5 12:48:42 HIV 1+2 AB + HIV 1 p24 Ag, qualitative immunoassay , serum 2024 025 [facility] (Lab), [address], [place], [address], 5 12:48:41 RPR (rapid plasma reagin), serum 2024 025 [facility] (Lab), [address], [place], [address], 5 12:48:43 pap, IG + HR HPV - HPV regardless but if HPV is positive need subtyping 16,18/45 add gc/ct/trich 2024 025 [facility] (Lab), [address], [place], [address], 5 12:48:44 hormone panel, serum or plasma 2024 025 [facility] (Lab), [address], [place], [address], 5 12:48:40 HbA1c (hemoglobin A1c), blood [address] (Lab), [address], [place], [address], 4 12:34:57 TSH, serum or plasma [address] (Lab), [address], [place], [address], 4 11:29:26 CMP, serum or plasma [address] (Lab), [address] [facility], [place], [address], 4 11:29:25 lipid panel, blood [address] (Lab), [address] [facility], [place], [address], 4 11:29:25 CBC w/ auto diff [address] (Lab), [address] [facility], [place], [address], 4 11:29:25 test, urine 2022 023 [facility] [address], [address], [place], [address], 3 11:56:50 Referral primary care provider referral 2022 023 [place] [address] Niecy Barry SALES ADVISOR, [address], [place], [address], 4 10:59:23 [facility] care provider [facility] 2022 023 [facility]cy Barry SALES ADVISOR, [address], [place], [address], 4 10:59:24 gynecologic oncologist referral 2022 023 [email or web address] Chris Herbert MD, [address], [address], 4 10:59:22 Procedures None recorded. Surgeries None recorded. Imaging US, pelvis 2024 025 [email or web address] [address], [address], [place], [address], 5 09:56:35 US, transvagina l 2024 025 [email or web address], [address], [place], [address], 5 09:56:35 MAMMO, diagnostic, digital, bilateral [address] [facility], [address], [place], [address], 5 13:39:14 US, breast, bilateral, complete [address] [facility], [address], [place], [address], 5 13:39:14 US, pelvis, complete [address] [facility] [address], [place], [address], 5 13:39:08 Medication Orders metformin ER 500 mg tablet,exte nded release 24 hr [address] [facility], [address] [place] [address], [address], 4 15:27:39 levothyroxi ne 25 mcg tablet [address] [facility], [address] [place], [address], 4 15:27:32 Patient TargetsNo targets recorded. Patient InstructionsNo instructions recorded. Reason for Referral Gynecologic Oncologist Refer ral for Adenocarcinoma of endometrium Referring Physician: Wendy Ferguson FURNACE INSTALLER, Encounter Date: 12/02/2022 Primary Care Provider Referr al for Type 2 diabetes mellitus Referring Physician: Wendy Ferguson FURNACE INSTALLER, Encounter Date: 12/02/2022 Primary Care Provider Referr al for Hypothyroidism Referring Physician: Wendy Ferguson FURNACE INSTALLER, Encounter Date: 12/02/2022 Results Created Date Observation Date Name Description Value Unit Range Abnormal Flag Note LastModifiedBy Organization Detail LastModifiedTime 11/20/19 23 11/19/2022 CT/GC AND TRICH OMONA S VAGIN DANNY (RRNA ), URINE chlamydia trachomatis, PCR NEGATI VE negati ve Not Available [facility] (Lab) [address] [facility], [place], [address], 11/20/2022 12:58:26 11/20/19 23 11/19/2022 CT/GC AND TRICH OMONA S VAGIN DANNY (RRNA ), URINE neisseria gonorrhoeae, PCR NEGATI VE negati ve Not Available [facility] (Lab) [address], [place], [address], 11/20/2022 12:58:26 11/20/19 23 11/19/2022 CT/GC AND TRICH OMONA S VAGIN DANNY (RRNA ), URINE trichomonas vaginalis ribosomal RNA (rrna) NEGATI VE negati ve Not Available [facility] (Lab) [address] [facility], [place], [address], 11/20/2022 12:58:26 11/20/19 23 11/19/2022 PROGE STERO NE progesterone 0.13 NG/mL This assay was perfo rmed using [employer] ratio n reage nts and test kits. Value s obtai dori with other assay metho ds or kits canno t be used inter luu eably . Femal e Proge stero ne Range s: Folli cular phase 0.06- 0.89 ng/mL Ovula tion phase 0.12- 12.00 ng/mL Lutea l phase 1.83- 23.90 ng/mL Postm enopa usal< 0.05- 0.13 ng/mL Healt hy Pregn ant Women 1st Trime ster1 1.0-4 4.30 2nd Trime ster2 5.40- 83.30 3rd Trime ster5 8.70- 214.0 0 Not Available [facility] (Lab) [address] [facility], [place], [address], 11/27/2022 15:35:15 11/20/19 23 11/19/2022 PROLA CTIN prolactin, total 10.90 NG/mL 4.79-2 3.30 This assay was perfo rmed using [employer] ratio n reage nts and test kits. Value s obtai dori with other assay metho ds or kits canno t be used inter [facility] . Not Available [facility] (Lab) [address] [facility], [place], [address], 11/27/2022 15:35:15 11/20/19 23 11/19/2022 TSH, REFLE X FREE T4 TSH 6.66 uIU/m L 0.30-5 .33 high Not Available [facility] (Lab) [address] [place], [address], 11/27/2022 15:35:16 11/20/19 23 11/19/2022 FSH, LH, ESTRA DIOL estradiol 34.7 pg/mL This assay was perfo rmed using [employer] ratio n reage nts and test kits. Value s obtai dori with other assay metho ds or kits canno t be used inter [facility] . Femal e Estra diol Range s: Folli cular phase 12.4- 233 pg/mL Ovula tion phase 41.0- 398 pg/mL Lutea l phase 22.3- 341 pg/mL Postm enopa usal< 5-138 pg/mL Healt hy Pregn ant Women 1st Trime ster1 54-32 43 pg/mL 2nd Trime ster1 561-2 1280 pg/mL 3rd Trime ster8 525-> 89527 pg/mL Not Available [facility] (Lab) [address] [place], [address], 11/27/2022 15:35:17 11/20/19 23 11/19/2022 FSH, LH, ESTRA DIOL FSH 4.5 mIU/m L This assay was perfo rmed using [employer] ratio n reage nts and test kits. Value s obtai dori with other assay metho ds or kits canno t be used [facility] . Femal es Folli cular : 3.5-1 2.5 mIU/m L Ovula tion: 4.7-2 1.5 mIU/m L Lutea l: 1.7-7 .7 mIU/m L Postm enopa use: 25.8- 134.8 mIU/m L Not Available [facility] (Lab) [address] [facility], [place], [address], 11/27/2022 15:35:17 11/20/19 23 11/19/2022 FSH, LH, ESTRA DIOL LH 7.6 mIU/m L This assay was perfo rmed using [employer] Corpo ratio n reage nts and test kits. Value s obtai dori with other assay metho ds or kits canno t be used inter [facility] . Femal es Mid-F ollic ular: 2.4-1 2.6 mIU/m L Mid-C ycle: 14.0- 95.6 mIU/m L Mid-L uteal : 1.0-1 1.4 mIU/m L Postm enopa use: 7.7-5 8.5 mIU/m L Not Available [facility] (Lab) [address] [facility], [place], [address], 11/27/2022 15:35:17 11/20/1911/19/2022 RETIC ULOCY TE COUNT reticulocyte count percent 3.90 % 0.50-1 .50 high Not Available [facility] (Lab) [address] [facility], [place], [address], 11/27/2022 15:35:17 11/20/1911/19/2022 RETIC ULOCY TE COUNT reticulocyte count absolute 158.20 10'3/ uL 23.2-7 0.7 high Not Available [facility] (Lab) [address] [facility], [place], [address], 11/27/2022 15:35:17 11/20/19 23 11/19/2022 CBC W/DIF F WBC 9.4 10'3/ uL 3.6-10 .2 Not Available [facility] (Lab) [address], [place], [address], 11/27/2022 15:35:18 11/20/19 23 11/19/2022 CBC W/DIF F RBC 4.11 10'6/ uL (based on docume nted legal sex) 4.10-5 .30 Not Available [facility] (Lab) [address] [facility], [place], [address], 11/27/2022 15:35:18 11/20/19 23 11/19/2022 CBC W/DIF F HGB 11.8 g/dL (based on docume nted legal sex) 11.9-1 5.8 low Not Available [facility] (Lab) [address] [facility], [place], [address], 11/27/2022 15:35:18 11/20/19 23 11/19/2022 CBC W/DIF F HCT 36.7 % (based on docume nted legal sex) 37.4-4 8.3 low Not Available [facility] (Lab) [address], [place], [address], 11/27/2022 15:35:18 11/20/19 23 11/19/2022 CBC W/DIF F MCV 89.3 fL 82.0-9 9.0 Not Available [facility] (Lab) [address] [facility], [place], [address], 11/27/2022 15:35:18 11/20/19 23 11/19/2022 CBC W/DIF F MCH 28.7 pg 27.0-3 3.0 Not Available [facility] (Lab) [address] [facility], [place], [address], 11/27/2022 15:35:18 11/20/19 23 11/19/2022 CBC W/DIF F MCHC 32.2 g/dL 32.0-3 6.0 Not Available [facility] (Lab) [address] [facility], [place], [address], 11/27/2022 15:35:18 11/20/19 23 11/19/2022 CBC W/DIF F RDW 13.2 % 11.0-1 5.0 Not Available [facility] (Lab) [address] [facility], [place], [address], 11/27/2022 15:35:18 11/20/19 23 11/19/2022 CBC W/DIF F plt 345 10'3/ uL 150-45 0 Not Available [facility] (Lab) [address] [facility], [place], [address], 11/27/2022 15:35:18 11/20/19 23 11/19/2022 CBC W/DIF F MPV 10.3 fL 9.8-12 .7 Not Available [facility] (Lab) [address] [facility], [place], [address], 11/27/2022 15:35:18 11/20/19 23 11/19/2022 CBC W/DIF F NRBC's 0.0 % 0 Not Available [facility] (Lab) [address] [facility], [place], [address], 11/27/2022 15:35:18 11/20/19 23 11/19/2022 CBC W/DIF F absolute NRBCs 0.0 10'3/ uL 0 Not Available [facility] (Lab) [address] [facility], [place], [address], 11/27/2022 15:35:18 11/20/19 23 11/19/2022 CBC W/DIF F neutrophils 64.4 % 37.0-7 2.0 Not Available [facility] (Lab) [address] [facility], [place], [address], 11/27/2022 15:35:18 11/20/19 23 11/19/2022 CBC W/DIF F lymphocytes 26.8 % 16.0-4 8.0 Not Available [facility] (Lab) [address] [facility], [place], [address], 11/27/2022 15:35:18 11/20/19 23 11/19/2022 CBC W/DIF F monocytes 5.0 % 4.0-14 .0 Not Available [facility] (Lab) [address] [facility], [place], [address], 11/27/2022 15:35:18 11/20/19 23 11/19/2022 CBC W/DIF F eosinophils 1.9 % 0.0-9. 0 Not Available [facility] (Lab) [address] [facility], [place], [address], 11/27/2022 15:35:18 11/20/19 23 11/19/2022 CBC W/DIF F basophils 0.4 % 0.0-2. 0 Not Available [facility] (Lab) [address] [facility], [place], [address], 11/27/2022 15:35:18 11/20/19 23 11/19/2022 CBC W/DIF F immature granulocytes 1.5 % no define d refere nce range Not Available [facility] (Lab) [address] [facility], [place], [address], 11/27/2022 15:35:18 11/20/19 23 11/19/2022 CBC W/DIF F absolute neutrophils 6.1 10'3/ uL 1.1-6. 0 high Not Available [facility] (Lab) [address] [facility], [place], [address], 11/27/2022 15:35:18 11/20/19 23 11/19/2022 CBC W/DIF F absolute lymphocytes 2.5 10'3/ uL 0.7-3. 4 Not Available [facility] (Lab) [address] [facility], [place], [address], 11/27/2022 15:35:18 11/20/19 23 11/19/2022 CBC W/DIF F absolute monocytes 0.5 10'3/ uL 0.3-1. 0 Not Available [facility] (Lab) [address] [facility], [place], [address], 11/27/2022 15:35:18 11/20/19 23 11/19/2022 CBC W/DIF F absolute eosinophils 0.2 10'3/ uL 0.0-0. 6 Not Available [facility] (Lab) [address] [facility], [place], [address], 11/27/2022 15:35:18 11/20/19 23 11/19/2022 CBC W/DIF F absolute basophils 0.0 10'3/ uL 0.0-0. 1 Not Available [facility] (Lab) [address] [facility], [place], [address], 11/27/2022 15:35:18 11/20/19 23 11/19/2022 CBC W/DIF [...] resul ts are expec nicola. Not Available [facility] (Lab) [address] [facility], [place], [address], 11/27/2022 15:35:18 11/20/19 23 11/19/2022 LEVON TIN / IRON / TRANS LEVON N / TIBC iron 66 ug/dL 40-170 Not Available [facility] (Lab) [address] [facility], [place], [address], 11/27/2022 15:35:18 11/20/19 23 11/19/2022 LEVON TIN / IRON / TRANS LEVON N / TIBC transferrin 282 mg/dL 200-36 0 Not Available [facility] (Lab) [address] [facility], [place], [address], 11/27/2022 15:35:18 11/20/19 23 11/19/2022 LEVON TIN / IRON / TRANS LEVON N / TIBC ferritin 65.3 NG/mL 8.0-25 2.0 Not Available [facility] (Lab) [address] [facility], [place], [address], 11/27/2022 15:35:18 11/20/19 23 11/19/2022 LEVON TIN / IRON / TRANS LEVON N / TIBC TIBC 395 ug/dL 250-45 0 Not Available [facility] (Lab) [address] [facility], [place], [address], 11/27/2022 15:35:18 11/20/19 23 11/19/2022 LEVON TIN / IRON / TRANS LEVON N / TIBC iron saturation 17 % 20-55 low Not Available [facility] (Lab) [address] [facility], [place], [address], 11/27/2022 15:35:18 11/20/19 23 11/19/2022 VITAM IN B12 / FOLAT E PANEL vitamin B12 354 pg/mL 180-91 4 Pam l Range : 180-9 14 pg/mL . Indet ermin ate Range : 145-1 80 pg/mL . Defic ient Range : <=145 pg/mL . Not Available [facility] (Lab) [address] [facility], [place], [address], 11/27/2022 15:35:18 11/20/19 23 11/19/2022 VITAM IN B12 / FOLAT E PANEL folate, serum 10.9 NG/mL 6.0-20 .0 Not Available [facility] (Lab) [address] [place], [address], 11/27/2022 15:35:18 11/20/19 23 11/19/2022 HEMOG LOBIN A1C hemoglobin A1C 7.3 % 0-5.6 high The Ameri can [employer] anderson [employer] i[employer] n recom mends that a prima ry goal of thera py shoul d be a HBA1C of < 7% and that physi cians shoul d reeva luate the treat ment regim en in patie nts with HBA1C value s consi stent ly > 8%. <5.7% Pam l 5.7 - 6.4% Incre ased risk for diabe anderson >=6.5 % Diagn ostic of diabe anderson <7.0% Goal of thera py >8.0% Actio n sugge sted Not Available [facility] (Lab) [address] [facility], [place], [address], 11/27/2022 15:35:19 11/20/1911/19/2022 TESTO STERO NE, FREE( DIALY SIS) AND TOTAL (LC/M S/MS) testosterone , total 26 NG/dL 2-45 For addit ional infor cindi saucedo e refer to http: //[facility] idania howell.que stdia gnost ics.c om/fa q/Tot alTes jose nogueraeL [facility] (This link is being provi ded for infor seng flores/ educa paulino l purpo ses only. ) This test was devel oped and its shari tical perfo rmanc e jens cteri stics have been deter mined by [facility]. It has not been clear ed or appro jonh by the FDA. This assay has been valid ated pursu ant to the CLIA regul ation s and is used for clini sourav purpo ses. Not Available [facility] (Lab) [address] [facility], [place], [address], 11/27/2022 15:35:19 11/20/1911/19/2022 TESTO STERO NE, FREE( DIALY SIS) AND TOTAL (LC/M S/MS) testosterone , free 5.7 pg/mL 0.1-6. 4 This test was devel oped and its shari tical perfo rmanc e jens cteri stics have been deter mined by [facility]. It has not been clear ed or appro john by the FDA. This assay has been valid ated pursu ant to the CLIA regul ation s and is used for clini sourav purpo ses. Perfo rming Organ izati on Infor [facility] n: Site ID: [id number] Name: [facility]-Suraj catina Norman cia Addre ss: [address] [place] [address] Direc tor: Kalina luo M.D. Not Available [facility] (Lab) [address] [facility], [place], [address], 11/27/2022 15:35:19 11/20/19 23 11/19/2022 17-OH PROGE [...] have been deter mined by [facility] [place] . It has not been clear ed or appro john by FDA. This assay has been valid ated pursu ant to the CLIA regul ation s and is used for clini sourav purpo ses. Perfo rming Organ izati on Infor matio n: Site ID: [id number] Name: [facility]/Suraj catina [facility] [place] , Addre ss: [id number] [place] [place] [address] Direc tor: Veronica koenig MD,Ph D,WILLIAM Not Available [facility] (Lab) [address], [place], [address], 11/27/2022 15:35:20 11/20/19 23 11/19/2022 pregn coty test, urine HCG negati ve Not Available [facility] [address], [place], [address], 11/19/2022 14:48:22 11/27/19 23 11/26/2022 SURGI SOURAV PATHO LOGY surgical pathology SEE RESULT S BELOW CASE REPOR T: Surgi sourav Patho logy Repor t Case: [id number] Autho julissa feldman Provi justo: Fredrick Diaz Colle cted: 11/26 1626 SALES ADVISOR Order ing Locat ion: [place] Patho log[facility] Recei john: 11/27 0258 Patho logis t: Cinthya Samuel MD Speci men: Endom etriu m, emb FINAL DIAGN OSIS: Endom etriu m, biops y: -Endo metri al adeno carci noma, endom etrio id type, 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 Elect ale gonzáles d by Cinthya Samuel MD on at 2:04 PM ----- ----- ----- ----- ----- ----- ----- ----- ----- ----- ----- ----- ----- ----- ----- ----- ----- ---- COMME NT: The case was revie wed with [...] Contr ols Verif ied: Yes Estro gen Corporate Compliance Director tor (ER) Statu s: Posit vaibhav Perce ntage of Cells with Nucle ar Posit ivity : 100 % [place] Inten sity of Stain ing: Stron g Proge stero ne Corporate Compliance Director tor (PgR) Statu s: Posit viabhav Perce ntage of Cells with Nucle ar Posit ivity : 100 % [place] Inten sity of Stain ing: Stron [...] as inves tigat ional or for resea [facility]. This labor atory is certi fied under [...] label ed with the patie nt's name, demog raphi cs and EMB . Recei john in forma dana is a 3.0 x 3.0 x 0.[address] of soft, red-t an tissu e. The entir e speci men is submi tted in 2 casse ttes. Gross ed by Valerio chase Not Available [facility] (Lab) [address] [facility], [place], [address], 12/02/2022 15:26:43 11/27/19 23 11/26/2022 IMAGE GUIDE D PAP, REFLE X HPV IF ASCUS ONLY image guided Pap, reflex HPV ASCUS only SEE RESULT S BELOW abnormal CASE REPOR T: Cytol ogy Gynec ologi sourav Repor t Case: [id number] Autho julissa feldman Provi justo: Fredrick Diaz Colle cted: 11/26 1626 SALES ADVISOR Order ing Locat ion: [place] Patho logy Recei john: 11/27 0832 First Scree n: Miesha Fabian ay, CT Patho logis t: Sam [address], [...] gonzalez speci fied (NOS) . Elect ale tillman by Sam [address]field rd, MD on 2022 [...] ry: Hormo cristin (if appli cable ): KARLEY JIMENEZ FOLLO W-UP: Follo w up as deanne nted, based on currindigo nt guide lines and indiv idual patiindigo nt consi derat ions. Not Available [facility] (Lab) [address], [place], [address], 12/02/2022 15:26:44 11/27/19 23 11/26/2022 pregn coty test, urine HCG negati ve Not Available [facility] [address], [place], [address], 11/26/2022 11:41:07 09/06/19 25 09/05/2024 FSH, LH, ESTRA DIOL estradiol 33.3 pg/mL This assay was perfo rmed using [employer] ratio n reage nts and test kits. Value s obtai dori with other assay metho ds or kits canno t be used inter [facility] . Femal e Estra diol Range s: Folli cular phase 12.4- 233 pg/mL Ovula tion phase 41.0- 398 pg/mL Lutea l phase 22.3- 341 pg/mL Postm enopa usal <5-13 8 pg/mL Healt hy Pregn ant Women 1st Trime ster 154-3 243 pg/mL 2nd Trime ster 1561- 31807 pg/mL 3rd Trime ster 8525- >3000 0 pg/mL Not Available [facility] (Lab) [address] [facility], [place], [address], 09/07/2024 12:48:40 09/06/19 25 09/05/2024 FSH, LH, ESTRA DIOL FSH 5.4 mIU/m L This assay was perfo rmed using [employer] [facility] ratio n reage nts and test kits. Value s obtai dori with other assay metho ds or kits canno t be used inter [facility] . Femal es Folli cular : 3.5-1 2.5 mIU/m L Ovula tion: 4.7-2 1.5 mIU/m L Lutea l: 1.7-7 .7 mIU/m L Postm enopa use: 25.8- 134.8 mIU/m L Not Available [facility] (Lab) [address] [place], [address], 09/07/2024 12:48:40 09/06/19 25 09/05/2024 FSH, LH, ESTRA DIOL LH 7.7 mIU/m L This assay was perfo rmed using [employer] [facility] ratio n reage nts and test kits. Value s obtai dori with other assay metho ds or kits canno t be used inter [facility] . Femal es Mid-F ollic ular: 2.4-1 2.6 mIU/m L Mid-C ycle: 14.0- 95.6 mIU/m L Mid-L uteal : 1.0-1 1.4 mIU/m L Postm enopa use: 7.7-5 8.5 mIU/m L Not Available [facility] (Lab) [address], [place], [address], 09/07/2024 12:48:40 09/06/1909/05/2024 HEPAT ITIS B SURFA CE ANTIG EN hepatitis B surface antigen Non-re active non-re active This assay was perfo rmed using [facility] [facility] [facility] [employer] ratio n reage nts and test kits. Value s obtai dori with other assay metho ds or kits canno t be used inter [facility] . Not Available [facility] (Lab) [address], [place], [address], 09/07/2024 12:48:41 09/06/1909/05/2024 HIV 1/2 ANTIG EN/AN TIBOD Y, REFLE X CONFI RMATI ON HIV antigen/anti body Nonrea ctive nonrea ctive HIV-1 antig en and HIV-1 /HIV- 2 antib odies were not detec nicola. No labor atory evide nce of HIV infec tion. Not Available [facility] (Lab) [address], [place], [address], 09/07/2024 12:48:41 09/06/1909/05/2024 HEPAT ITIS C ANTIB RHONDA SCREE N, REFLE X TO CONFI RMATI ON hepatitis C antibody Non-re active non-re active Antib odies to HCV Not Detec nicola, does not exclu de the possi bilit y of expos ure to HCV. Not Available [facility] (Lab) [address] [facility], [place], [address], 09/07/2024 12:48:42 09/06/1909/05/2024 RPR SCREE N, REFLE X TITER /CONF IRMAT ION RPR qualitative Nonrea ctive nonrea ctive Not Available [facility] (Lab) [address] [facility], [place], [address], 09/07/2024 12:48:42 09/06/1909/05/2024 HEPAT ITIS B CORE, IGM hepatitis B core IgM antibody Non-re active non-re active Antib odies to Hepat itis B Core IgM not detec nicola. Does not exclu de the possi bilit y of expos ure to or infec tion with HBV. Corre late with other Hepat itis B serol ogies . Not Available [facility] (Lab) [address], [place], [address], 09/07/2024 12:48:43 09/06/1909/05/2024 IMAGE GUIDE D PAP AND HPV REGAR DLESS image guided Pap, HPV regardless of Pap result SEE RESULT S BELOW CASE REPOR T: Cytol ogy Gynec ologi sourav Repor t Case: [id number] Autho julissa feldman Provi justo: Taylor Mir, SALES ADVISOR Colle cted: 09/05 1107 Order ing Locat ion: [place] [facility] Recei john: 09/06 0913 First Scree n: Douglas Dockery, CT Rescr een: Estela z, Everardo carrera, CT Speci men: Scree emily Pap - Image d, Cervi x STATE MENT OF ADEQU ACY: Satis facto ry for evalu ation Trans forma tion zone compo nent absen t The absen ce of an endoc ervic al compo nent was confi rmed by an addit ional scree ner. ----- ----- ----- ----- ----- ----- ----- ----- ----- ----- ----- ----- ----- ----- ----- ----- ----- ---- FINAL DIAGN OSIS: Negat vaibhav for Intra epith elial Lesio dante or Pabloangela ovidio (NIL) . Elect ale gonzáles d by Everardo Huizar am, CT on 2024 at 1145 CDT ----- ----- ----- ----- ----- ----- ----- [...] s: LMP (if appli cable ): Clini osurav Histo ry/Pr eviou s Pap: Type of Neopl mary (if appli cable ): Signi fican t Clini sourav Findi ngs: Other Histo ry: Hormo cristin (if appli cable ): PAP EDUCA PAULINO L NOTE: The Pap Test is a scree emily test with an inher ent false negat vaibhav rate. Liqui d-bas ed sampl ing may decre ase, but will not elimi neil, false negat vaibhav resul ts. A negat vaibhav resul t does not precl ude the prese nce and/o r devel opmen t of disea se, since the prese nce of abnor mal cells in the sampl e depen ds on the locat ion of the lesarsenio n and sampl ing techn ique. Bethanie nued regul ar scree emily is the best metho d of cance r preve ntion . If repor nicola cytol ogic findi ng do not corre late with physi sourav and/o r histo rical findi ngs, furth er inves tigat ion is recom shabnam d, as clini clara warra nted. Not Available [facility] (Lab) [address], [place], [address], 09/07/2024 12:48:44 09/06/1909/05/2024 CT/GC AND TRICH OMONA S VAGIN DANNY (RRNA ), THINP REP VIAL CT/GC and trichomonas vaginalis (rrna), thinprep SEE RESULT S BELOW negati ve CHLAM YDIA TRACH OMATI S, PCR: Negat vaibhav NEISS ERIA GONOR RHOEA E, PCR: Negat vaibhav TRICH OMONA S VAGIN DANNY RIBOS OMAL RNA (RRNA ): Negat vaibhav Not Available [facility] (Lab) [address], [place], [address], 09/07/2024 12:48:44 11/21/19 23 11/20/2022 US, pelvi s No observ ation record ed. [email or web address] [facility] [address], [place], [address], 11/20/2022 14:10:09 11/21/19 23 11/20/2022 US, trans vagin al No observ ation record ed. [email or web address] [facility] [address], [place], [address], 11/20/2022 14:10:00 11/21/19 23 11/20/2022 US, pelvi s No observ ation record ed. [email or web address] [facility] [address], [place], [address], 11/25/2022 11:48:13 09/14/19 25 09/13/2024 US, pelvi s No observ ation record ed. [email or web address] [facility] [address], [place], [address], 09/13/2024 13:30:44 09/14/19 25 09/13/2024 US, trans vagin al No observ ation record ed. [email or web address] [facility] [address], [place], [address], 09/13/2024 13:30:56 09/14/19 25 09/13/2024 US, pelvi s No observ ation record ed. [email or web address] [facility] [address], [place], [address], 09/21/2024 15:28:44 Result Notes None recorded. Problems Name Problem SNOMED Code Status Onset Date Resolution Date Notes Provider Name and Address Organization Details Recorded Time Finding of menstrua l bleeding Completed 201807/20/2020 Oligomen orrhea, unspecif ied;Tirso rded Elsewher e: No Locat ion: [facility] S ource: EHR Fence Machine Operator suraj: N Practi ce ID: [id number] James lable Time: 11:00:00 AM Rachel baker [facility] 1 17:20:59 Polycyst ic ovary syndrome 800049234 Active 2018 Polycyst ic ovarian syndrome ;Recorde d Elsewher e: No Locat ion: [facility] S ource: EHR Fence Machine Operator suraj: N Marti ce ID: 0001 James lable Time: 11:00:00 AM Not Available [facility] 0 18:54:32 Adenocar cinoma of uterus 550297387 Active 2022 Wendy Ferguson [facility]- [address], [place], [address], , P.C[facility] 3 10:37:26 Type 2 diabetes mellitus 13233327 Active 2022 Wendy Ferguson [facility] [address], [place], [address], , [facility] 3 10:37:39 Hypothyr oidism 23800843 Active 2022 Wendy Ferguson [facility] [address], [place], [address], , [facility] 3 10:37:51 Obesity 064326357 Active 2022 Wendy Ferguson [facility] [address], [place], [address], , [facility] 10:38:00 Problem Notes None recorded. Procedures Surgical History Date Name Laterality Status Provider Name and Address Organization Details Recorded Time 12/11/19 23 total hysterectomy completed Taylor Mir [facility] [address], [place], [address], , [facility] 09/05/2024 11:20:16 11/27/19 23 Endometrial Biopsy completed Wendy Ferguson [facility] [address], [place], [address], , [facility] 11/26/2022 11:56:38 11/27/19 23 Date of Last Pap Smear completed Emy Berumen [facility] 09/02/2023 15:28:17 fallopian tube excision completed Taylor Mri [facility] [place], [address], , [facility] 09/05/2024 11:21:41 Imaging Results None recorded. Procedure Notes None recorded. Medical Equipment None Reported. Allergies No known drug allergies Medications Name Sig Start Date Stop Date Status Note LastModified by Organization Details LastModified Time amoxicillin 500 mg capsule 10/12 completed Not Available Not Available Not Available lamotrigine 150 mg tablet TAKE 1 TABLET BY MOUTH DAILY active Not Available Not Available No t Available metformin 500 mg tablet TAKE 1 TABLET BY MOUTH THREE TIMES DAILY 11/19 completed Not Available Not Available Not Available quetiapine 300 mg tablet TAKE 1 TABLET BY MOUTH DAILY AT BEDTIME FOR 14 DAYS 09/05 completed Not Available Not Available Not Available Concerta 18 mg tablet,exte nded release TAKE 1 TABLET BY MOUTH ONCE DAILY IN THE MORNING 11/19 completed Not Available Not Available Not Available cetirizine 10 mg tablet TAKE 1 TABLET BY MOUTH ONCE DAILY 11/19 completed Not Available Not Available Not Available ibuprofen 800 mg tablet 10/12 completed Not Available Not Available Not Available prazosin 1 mg capsule TAKE 1 CAPSULE BY MOUTH DAILY AT BEDTIME active Not Available Not Available No t Available ondansetron HCl 8 mg tablet 10/12 completed Not Available Not Available Not Available prednisone 20 mg tablet TAKE 2 TABLETS BY MOUTH ONCE DAILY FOR 4 DAYS. TAKE WITH FOOD. DO NOT TAKE WITH ASPIRIN OR NSAIDS SUCH ALEVE, IBUPROFEN , ETC. 11/19 completed Not Available Not Available Not Available dextroamphe tamine-amph etamine 10 mg tablet TAKE 1 TABLET BY MOUTH TWICE DAILY FOR 10 DAYS 09/05 completed Not Available Not Available Not Available quetiapine 200 mg tablet TAKE 1 TABLET BY MOUTH DAILY AT BEDTIME 09/05 completed Not Available Not Available Not Available penicillin V potassium 500 mg tablet TAKE 1 TABLET BY MOUTH FOUR TIMES DAILY FOR 10 DAYS active Not Available Not Available No t Available oxcarbazepi ne 300 mg tablet TAKE 1 TABLET BY MOUTH TWICE DAILY FOR BIPOLAR DISORDER active Not Available Not Available No t Available quetiapine 100 mg tablet TAKE 1 TABLET BY MOUTH DAILY FOR 10 DAYS 09/05 completed Not Available Not Available Not Available levothyroxi ne 25 mcg tablet TAKE 1 TABLET BY [...] completed Not Available Not Available Not Available dextroamphe tamine-amph etamine 15 mg tablet TAKE 1 TABLET BY MOUTH TWICE DAILY active Not Available Not Available No t Available ergocalcife rol (vitamin D2) 1,250 mcg (50,000 unit) capsule 11/19 completed Not Available Not Available Not Available albuterol sulfate HFA 90 mcg/actuati on aerosol inhaler INHALE 2 PUFFS BY MOUTH EVERY 4 HOURS NEEDED 11/19 completed Not Available Not Available Not Available metformin ER 500 mg tablet,exte nded release 24 hr TAKE 1 TABLET BY MOUTH ONCE DAILY WITH SUPPER FOR 30 DAYS 09/01 completed Not Available Not Available Not Available sertraline 50 mg tablet TAKE 1 TABLET BY MOUTH DAILY AT 7AM FOR DEPRESSIO N active Not Available Not Available No t Available dicyclomine 10 mg capsule 10/12 completed Not Available Not Available Not Available lamotrigine 100 mg tablet TAKE 1 TABLET BY MOUTH ONCE DAILY 09/05 completed Not Available Not Available Not Available oxycodone 5 mg tablet TAKE 1 TABLET BY MOUTH EVERY 6 HOURS NEEDED FOR PAIN 09/01 completed Not Available Not Available Not Available aripiprazol e 5 mg tablet TAKE 1 TABLET BY MOUTH DAILY FOR 10 DAYS 09/05 completed Not Available Not Available Not Available quetiapine 50 mg tablet TAKE 1 TABLET BY MOUTH ONCE DAILY 11/19 completed Not Available Not Available Not Available quetiapine 400 mg tablet TAKE 1 TABLET BY MOUTH AT BEDTIME FOR ANXIETY AND MOOD active Not Available Not Available No t Available Lo Loestrin Fe 1 mg-10 mcg (24)/10 mcg (2) tablet TAKE 1 TABLET BY MOUTH ONCE DAILY 11/19 completed Not Available Not Available Not Available quetiapine 150 mg tablet TAKE 1 TABLET BY MOUTH DAILY 09/05 completed Not Available Not Available Not Available Vitals Date Recorded Body height Body mass index (BMI) Body weight Systolic And Diastolic Provider Name and Address Organization Details Last Updated DateTime 09/02/2023 162.56 cm 43.4 kg/m2 512738.87 g 145/83 mm[Hg] Emy Berumen [facility] 09/02/2023 15:27:13 Date Recorded Body height Body mass index (BMI) Body weight Systolic And Diastolic Provider Name and Address Organization Details Last Updated DateTime 09/05/2024 162.56 cm 39 kg/m2 527290.47 g 120/80 mm[Hg] Lalita Mcghee [facility] 09/05/2024 11:14:52 Date Recorded Body height Body mass index (BMI) Body weight Systolic And Diastolic Provider Name and Address Organization Details Last Updated DateTime 11/26/2022 162.56 cm 45 kg/m2 033133.2 g 128/85 mm[Hg] Emy Cuevaser [facility] 11/26/2022 11:40:07 Date Recorded Body height Body mass index (BMI) Body weight Systolic And Diastolic Provider Name and Address Organization Details Last Updated DateTime 12/02/2022 162.56 cm 45.1 kg/m2 522136.79 g 107/69 mm[Hg] Emy [facility] 12/02/2022 10:09:39 Social History Question Answer Notes LastModified by [employer] [employer] Details LastModified Time Tobacco Smoking Status Current Every Day Smoker Lalita Mcghee samuel, [facility] 11/20/2022 12:24:38 Are You Blind Or [...] Functional Status Question Answer Note LastModified by Organizat ion Details LastModified Time Are you able to walk? YESWOREST Information not available 07/20/2020 What is your exercise level? Occasional Information not available 07/20/2020 Mental Status Question Answer Note LastModified by Organization D etails LastModified Time Do you feel stressed (tense, restless, nervous, or anxious, or unable to sleep at night)? [id number] Information not available 07/20/2020 Family History Relationship Description Onset Age of this Age Resolved Age Notes LastModified by Organization Details LastModified Time Mother Polycystic ovary syndrome [email or web address] Not available 2019 10:09:35 Maternal Grandmother Polycystic ovary syndrome [email or web address] Not available 2019 10:09:35 Medical History Condition Response Allergies (Food, seasonal, environmental ) N Other Y Blood Transfusion N Drug/Latex Allergies/Reactions N Breast Cancer N Dermatologic Disorders N Lung Disease N Defects or Inherited Disease N Breast Problem N Gestational Diabetes N Hematologic disorders N Anesthesia Complications N History of STI N Deep Vein Thrombosis N Polycystic ovary syndrome Y Anxiety Disorder Y Autoimmune disease N Arthritis N Infertility N Polyps N Acid Reflux (GERD) N History of abnormal pap N Cancer Y Stroke N Varicosities N Neurologic/Epilepsy N Endometriosis N High Cholesterol N Headaches N Fibromyalgia N Kidney Disease N Heart Problems N Kidney or Bladder Problems N Thyroid Problems Y GI Problems N Eating Disorder N Anemia N Art (IVF or FET) N Psychiatric Illness N Ovarian Cancer N Diabetes Y Pulmonary (TB, Asthma) N Hepatitis/Liver Disease N No Past Medical History N Eczema N Urinary Tract Infection N Abuse/Domestic Violence N Asthma N Trauma/Violence N Depression/ depression Y Heart Disease N Pre-Eclampsia N Hypertension N Osteoporosis N Thrombophilias N Gynecological History Statement/Question Response Abnormal Pap Y Date of LMP STIs/STDs N Was last menstrual period normal N Current Control Method Hysterectom y Are cycles usually normal N Date of Last Colonoscopy Sexually Active? Y Menses Monthly N Date of DEXA bone scan Date of Last Pap Smear 11/26/2022 Sexual Problems? N Obstetrics History GPAL:G 1 P 1 0 0 1 Type Value Full Term 1 Living 1 Total 1 Past Encounters Encounter ID Performer Location Encounter Start Date Encounter Closed Date Diagnosis/Indication Diagnosis SNOMED-CT Code Diagnosis ICD10 Code Diagnosis Note [id number] [facility] [address] [address] 10/13/2019 09:59:55 10/13/2019 10:40:45 Gynecologic examination 38478363 Z01.419 Take Calcium with Vitamin D 1200mg [...] today's plan if desired. Polycystic ovary syndrome 652955034 E28.2 N92.6 Plan to restart metformin 500mg PO TID Contracept ion care management 958303659 Z30.9 Discussed all control options in great [...] are neg. RTO x 3mos med check [id number] [facility] [address],[place] [address] 01/12/2020 14:36:35 01/12/2020 15:21:20 Polycystic ovary syndrome 892079901 E28.2 N92.6 Patient is here today for [...] counseling and review of plan of care. [id number] [facility] [address],[place] [address] 11/19/2022 11:24:16 11/19/2022 11:53:53 Abnormal uterine bleeding 0997044322 9100 N93.9 The patient and I discussed [...] than 30 minutes face to face. Anemia 208424629 D64.9 [id number] Darrion Amador MD [facility] [address],[place] [address] 11/20/2022 12:24:34 11/20/2022 13:12:42 Abnormal uterine bleeding 6611826388 9100 N93.9 [id number] Wendy Ferguson [facility] [address],[place] [address] 11/26/2022 11:29:00 11/26/2022 12:13:11 Screening procedure 22845377 Z13.9 Endometrium thickened 44 8175474 R93.89 N93.9 Here today for EMB/US reviewUnde [...] care not including time spent on procedure. [id number] Wendy Ferguson [facility] [address],[place] [address] 12/02/2022 10:00:31 12/02/2022 14:37:27 Hypothyroidism 39154601 E03.9 Will start on discussed therapy after counseled on hypothyroi dism/treat ment. Counseled on medication R/B's, Most common side effects, & use. All questions were answered to patient satisfacti on. Will refer to PCP who can then refer to Endocrinol ogy if needed moving forward. Type 2 lora betes mellitus 05871901 E11.9 E66.9 Treatment started after counseling on DM2/lifest yle/activi ty changes.Sm oking cessationW eight loss encouraged Will refer to PCP who can then refer to Endocrinol ogy if needed moving forward. Adenocarci noma of endometrium 743090028 C54.1 Discussed this indepth & importance of following up/treatme nt/managem ent.Sent home with additional educationa l materials as I have advised that this visit today there will be a lot of feelings/e motions which can make what we discuss difficult to comprehend .Reassured her that COMMUNICATIONS MEDIA PROFESSOR-ONC will also go through in depth.We will reach out with her appt/date/ time or [facility] ONC/COMMUNICATIONS MEDIA PROFESSOR will.If has not heard anything within the week please contact us as this needs to be addressed camron.Under standing verbalized . [id number] Wendy Ferguson [facility] [address],[place] [address] 09/02/2023 15:17:15 09/02/2023 15:59:49 Gynecologic examination 90130969 Z01.419 Take Calcium with Vitamin D 1200mg [...] a paper copy of today's plan if desired.Kevin p/hpv due 2024 vaginal swab post hysterecto my for uterine cancer. STD Screen declined Genetic Screen discussed Colon Screen na Dexa Screen na Routine Labs ordered ( has appt to est care with new PCP [place], [place]) Adult heal th examination 215784777 Z00.00 Type 2 lora betes mellitus 19578402 E11.9 E66.9 Might need to consider endocrinol ogy referral Hypothyroidism 41874281 E03.9 Chronic neck pain 012636 6854 107 G89.29 Large breasts despite weight loss [...] History of malignant neoplasm of uterine body 799537844 Z85.42 Yearly check up with oncologist went wellNo concerns at this time.Dr. Maciej Tran re [id number] BREANN Tovar [facility] [address] [address] 09/05/2024 10:57:26 09/05/2024 14:10:33 Gynecologic examination 61907449 Z01.419 WWEPap - vaginal pap done today d/t hx (follows with camp coordinator onc yearly)STI screen - gc/ct/tric h testing added to papHIV/Hep B&C/Syphil is testing ordered per pt requestRou marva labs - PCPRTC in 1 yr or sooner if needed It is strongly advised to have an annual flu shot and up can obtain at most pharmacies . If you have not had a TDap shot in the last 10 years you should obtain one as well. Discussed with patient & provided with informatio n regarding the HPV vaccine if applicable . Encourage safe sexual practices, to use condoms and limit partners if not already in a monogamous relationsh ip. Do monthly self breast exams. BRCA testing is now available for patients with strong genetic history of female cancer. If interested contact the office. Engage in regular exercise. Avoid tobacco and illicit drugs. This lifestyle behavior pattern will lead to less health conditions and longer life span. If BMI greater than 25 dietary consult advised. Questions answered. Pain in pelvis 92540697 R10.2 Pelvic u/s ordered Pain of breast 46737407 N64.4 order given for bilateral breast u/s and diagnostic mammogram Venereal d isease screening 059510880 Z11.3 Flushing 424533102 R23.2 labs ordered, will discuss results when available, encouraged continued PCP f/u as well Time spent in visit is a total of 30 mins with at least 50% of visit consisting of counseling and review of plan of care. Sexually t ransmitted infectious disease 3319150 A64 [id number] Darrion Amador MD [facility] [address] [address] 09/13/2024 11:33:37 09/13/2024 12:03:45 Pain in pelvis 31656193 R10.2 Health Concerns Section Related Observation LastModified by Organization Detai ls LastModified Time None Recorded Concern Status LastModified by Organization Details LastModified Time None Recorded Advance Directives Directive None Recorded Payers Insurance Date Sequence Insurance Name Policy Number Policy Beltran Covered Member ID Beltran Member ID Guarantor Name 09/05/2024 1 [facility] - DOS PRIOR TO 2020 (MEDICAID REPLACEMENT - HMO) Hilariacindi Teixeira [id number] Hilaira Teixeira 09/05/2024 2 [place] [facility] DEPARTMENT OF PUBLIC AID Hilaria Puneet [id number] Hilaria Puneet 09/16/2024 1 [facility] - DOS ON OR AFTER 20 (MEDICAID REPLACEMENT - HMO) Hilaria Teixeira [id number] Hilaria Teixeira Notes Date Note Type Note Provider Name and Address Organization Details Recorded Time 3 text/html ROS as noted in the HPI Here today for US & EMB for AUB/Menorrhagia [facility] [address], [place], [address], , [facility] 11/26/2022 11:58:51 3 text/html ROS as noted in the HPI Here today to discuss multiple test results & discuss plan of care/referrals. [facility] [address], [place], [address], , [facility] 12/02/2022 14:21:23 4 text/html Annual Staff Climate Scientist Post-MenopausalReported by PatientGenitourinary symptomsFor menopausal symptoms, patient reportsno menopausal symptomsandnormal vaginal lubrication. For vaginal bleeding, patient reportshistory of menopause having occurredandno history of post menopausal bleeding. For urinary symptoms, patient reportsno hematuria,no incontinence,no nocturia, andno urinary frequency. For vulva, patient reportsno genital lesionandno vulvar atrophy. For vagina, patient reportsnormal vaginal dischargeandno vaginal atrophy.Breast symptomsFor breast, patient reportsno breast lump,no nipple discharge, andno breast pain.Psychological symptomsFor sexual complaints, patient reportsno sexual complaints. For psychological symptoms, patient reportsno depressionandno anxiety.Preventative measuresFor preventive measures, patient reportsencourage regular mammograms starting age 40,encourage self breast examination,encourage regular exercise, andencourage no tobacco use. BREANN Lopes- [address], [place], [address], , P[facility] 09/02/2023 15:58:16 text/html Annual GYNReported by PatientGenitourinary symptomsFor menstrual cycle, patient reportsnormal menses. For urinary symptoms, patient reportsno hematuriaandno incontinence. For vulva, patient reportsno genital lesion. For vagina, patient reportsnormal vaginal discharge.Breast symptomsFor breast, patient reportsbreast painbut reportsno breast lumpandno nipple discharge.ContraceptionFo r current contraception, (hyst).Endocrine symptomsFor menopausal symptoms, patient reportshot flashesbut reportsnormal vaginal lubrication. For sexual complaints, patient reportsno sexual complaints,no pain during intercourse, andnormal libido.Psychological symptomsFor psychological symptoms, patient reportsno depression,no anxiety, andno pmdd.Preventative measuresFor preventive measures, patient reportsencourage self breast examination,encourage regular exercise,encourage no tobacco use, andencourage regular mammograms starting age 40.29yo wweh/o TLH, BS in 2022 for endometrial cancer, ovaries remain. Sees camp coordinator onc yearly (last 02/13)last pap (prior to hyst) 11/2022 : atypical glandular cellsno paps since per pt breast tenderness/pain , comes and goes over the past yearbilateral lower cramping that comes and goes x 3 monthsrandom hot flashes at times seeing new PCP soon, adult health labs UTD per pt neg n/v/fneg urinary symptomsneg flu-like symptomsneg d/c, odors, itchingbowel movements wnl she would like STI testing today BREANN Tovar [address], [place], [address], , P[facility] 09/05/2024 14:02:05 OBGyn Episode Ob Episode Information Episode Created Date Number of Fetuses Patient Bloodtype Patient rh Status Prepregnancy Weight lbs Domestic Partner Domestic Partner Phone Father Name Press Smith Helper Status 10/13/19 20 1 CLOSED Fetus Data [...]
--- OUTSIDE RECORDS SUMMARY | 2024-10-14 12:54 | XMS_ITS ---
Author Organization [facility] Address [address] [place] [address] Care Team Providers Care 911 Emergency Dispatcher Name Role Phone Jillian Monahan Primary Care Provider Kiana Worley Unavailable [phone] REASON FOR VISIT 2 week fu Social History Sex Assigned At : Social History Observation Description Sex Assigned At Female Encounters Encounter Location Date Provider Diagnosis [address] [place] [address] 10/13/2024 Jillian Monahan Plan Of Treatment Next Appt Details Provider Name:Jillian ragsdale, 10/24/2024 04:30:00 PM, [address] [place] [address], [phone], Progress Notes * Hilaria TOLENTINODOB:[birth year] (29 yo F)Acc No.[id number]:10/13/2024 UNLOCKED PROGRESS NOTE Patient: Hilaria ORELLANA Provider: Dunia Monahan DNP, WHEEL BUFFER, PMHNP-BC :1995 A ge:29 Y S ex:Female Date:10/13/2024 Address:[address] [place], [place] Subjective: * Chief Complaints: * 1 . 2 week fu. * Medical History: Objective: * Vitals: Assessment: Plan: * Treatment: * * Electronic signature of Chyna Bravo , [id number] on 10/14/2024 at 12:54 PM CDT Sign off status: Pending * Provider: Dunia Monahan DNP, WHEEL BUFFER, PMHNP- Date: 10/13/2024 Generated for Printing/Faxing/eTransmitting on: 10/14/2024 12:54 PM CDT
== END 2024-10-14 12:50 | disposition home or self-care (01) ==
PROVIDERS: Visit Provider Nurse Practitioner
DX: R59.1 Generalized enlarged lymph nodes (principal); N64.4 Mastodynia
CPT/HCPCS: 77062; 77066; G0279

== ENCOUNTER 2024-10-20 08:25 | Outpatient (CLI) | payer OTHER, SELFPAY ==
--- NOTE | ~2024-10-20 | US_ITS ---
US axilla BI 10/20/2024 08:54 Indication: Prominent bilateral axillary lymph nodes seen on prior examination. Ultrasound requested. Procedure: High-resolution bilateral axillary ultrasound Comparison: Mammogram dated 10/14/2024 Findings: There are bilateral enlarged axillary lymph nodes, largest on the right measuring 3.8 cm in largest on the left measuring 2.3 cm. Off lymph nodes demonstrated fatty hilum. These are likely destinee ign reactive lymph nodes. Impression: 1: Probable benign bilateral reactive axillary lymphadenopathy. BI-RADS CATEGORY 3-PROBABLY BENIGN FINDING RECOMMENDATION: 6 month follow up recommended. Reviewed, dictated and finalized at location B. Impression: 1: Probable benign bilateral reactive axillary lymphadenopathy. BI-RADS CATEGORY 3-PROBABLY BENIGN FINDING RECOMMENDATION: 6 month follow up recommended.
--- OUTSIDE RECORDS SUMMARY | 2024-10-20 08:30 | XMS_ITS | Clinical Summary ---
Author Organization [facility] [employer] Address [address] [place] [address] Care Team Providers Care Electric Detector Operator Name Role Phone Smiley Camarillo DO Primary Care Provider Smiley Camarillo DO Unavailable [phone] Source Comments [facility],non-owned Affiliates and Associated Physician Practices is amultiple site organization consisting of ambulatory clinics and hospital sitesin [place], [place], [place] and [place]. This disclosure is being madepursuant to the Care Everywhere program and may not contain all information available regarding this patient. Last updated 17.[facility] Allergies No known active allergies [...] (12/04/2022): Polycystic ovarian syndrome;Recorded Elsewhere: No Location: [facility] Source: EHR Chronic: N Practice ID: [id number] Billable Time: 11:00:00 AM Polycystic ovarian syndrome;Recorded Elsewhere: No Location: [facility] Source: EHR Chronic: N Practice ID: [...] Comments Blood Pressure 128/78 02/08/2024 3:40 PM MEDIA PLANNER / BUYER Pulse 83 05/08/2022 3:59 PM MEDIA PLANNER / BUYER Temperature 35.6 C (96 F) 05/08/2022 3:59 PM MEDIA PLANNER / BUYER Respiratory Rate 16 01/27/2022 3:52 PM MEDIA PLANNER / BUYER Oxygen Saturation 99% 05/08/2022 3:59 PM MEDIA PLANNER / BUYER Inhaled Oxygen Concentration - - Weight 113.3 kg (249 lb 11.2 oz) 02/08/2024 3:40 PM MEDIA PLANNER / BUYER Height 160 cm (5' 3) 02/08/2024 3:40 PM MEDIA PLANNER / BUYER Body Mass Index 44.23 02/08/2024 3:40 PM MEDIA PLANNER / BUYER Plan of Treatment Upcoming Encounters Date Type Department Care Team (Late st Contact Info) Description 02/08/2025 3:30 PM MEDIA PLANNER / BUYER Office Visit [facility] [address] [place] [address] Chris Herbert MD [address] [place] [address] Health Maintenance Due Date Last Done Comments [...] COMPREHENSIVE METABOLIC PANEL STAT 01/27/2022 12:58 PM MEDIA PLANNER / BUYER from Last 3 Months or Most Recently Relevant to Health Maintenance Results * (ABNORMAL) COMPREHENSIVE METABOLIC PANEL (01/27/2022 12:58 PM MEDIA PLANNER / BUYER) Glucose 111(H) 70 - 105 mg/dL 01/27/2022 1:20 PM MEDIA PLANNER / BUYER [facility] Sodium 138 136 - 145 mmol/L 01/27/2022 1:20 PM MEDIA PLANNER / BUYER [facility] Potassium 4.1 3.5 - 5.1 mmol/L 01/27/2022 1:20 PM [facility] Chloride 105 98 - 107 mmol/L 01/27/2022 1:20 PM [facility] CO2 22(L) 23 - 31 mmol/L 01/27/2022 1:[address] [facility] Calcium 9.2 8.4 - 10.4 mg/dL 01/27/2022 1:20 PM MEDIA PLANNER / BUYER [facility] Anion Gap 11 8 - 18 mmol/L 01/27/2022 1:20 PM MEDIA PLANNER / BUYER [facility] BUN 9 7 - 18.7 mg/dL 01/27/2022 1:[address] [facility] Creatinine 0.68 0.57 - 1.11 mg/dL 01/27/2022 1:[address] [facility] Alkaline Phosphatase 96 40 - 150 U/L 01/27/2022 1:20 PM MEDIA PLANNER / BUYER [facility] ALT 47 0 - 61 U/L 01/27/2022 1:[address] [facility] AST 30 5 - 34 U/L 01/27/2022 1:[address] [facility] Protein Total 7.5 6.4 - 8.3 gm/dL 01/27/2022 1:[address] [facility] Albumin 4.2 3.5 - 5.2 gm/dL 01/27/2022 1:[address] [facility] Bilirubin Total 0.4 0.2 - 1.2 mg/dL 01/27/2022 1:[address] [facility] eGFR by CKD-EPI >90 >=90 mL/min/1.7 3 m2 01/27/2022 1:20 PM MEDIA PLANNER / BUYER [facility] Blood BLOOD SPECIMEN / Unknown Venipuncture / Unknown 01/27/2022 12:58 PM MEDIA PLANNER / BUYER 01/27/2022 1:03 PM MEDIA PLANNER / BUYER Latanya Bradley BULLARD OPERATOR-AROMATHERAPIST LAB - CHEMISTRY ORDERAB LES Final Result [facility] [address] [place] [address] from Last 3 Months or Most Recently Relevant to Health Maintenance Insurance [facility] [place] [address] Care Teams Electric Detector Operator Relationship Specialty Start Date End Date Smiley Camarillo DO [address] [place] [phone] PCP - General Obstetrics and Gynecology 07/19/21 Smiley Camarillo DO [address] [place] [phone] Obstetrics and Gynecology 07/19/21
--- OUTSIDE RECORDS SUMMARY | 2024-10-20 08:30 | XMS_ITS | Patient Health Record ---
Author Organization [facility] Address [address] [place] [address] Care Team Providers Care Paleobotanist Name Role Phone SinghdebbyJillian ragsdale Primary Care Provider Kiana Worley Unavailable [phone] Nazia Carr Unavailable Jennifer Gaines Unavailable [phone] Allergies No Known Allergies Results Component Value Reference Range Notes CMP 14 Comprehensive Metabol ic Panel* Reviewed date:10/05/2024 04:06:08 PM Interpretation: Performing Lab:[facility], [address] [facility], Phone - [phone], Director - Ricbrandon Notes/Report: Glucose 192 70-99 mg/dL BUN 14 [...] Panel* Reviewed date:10/05/2024 04:06:08 PM Interpretation: Performing Lab:[facility] [place], [address] [place] [address], Phone - [phone], Director - [facility] Notes/Report: Cholesterol, Total 253 100-199 mg/dL Triglycerides 379 0-149 mg/dL HDL Cholesterol 39 >39 mg/dL VLDL Cholesterol Tyrese 70 5-40 mg/dL LDL Chol Calc (NIH) 144 0-99 mg/dL Hemoglobin A1c* Reviewed date:10/05/2024 04:06:08 PM Interpretation: Performing Lab:[facility] [address], Phone - [phone], [facility] Notes/Report: Hemoglobin A1c 8.0 4.8-5.6 % . Prediabetes: 5.7 - 6.4 Diabetes: >6.4 Glycemic control for adults with diabetes: <7.0 CBC With Differential/Platel et* Reviewed date:10/05/2024 04:06:08 PM Interpretation: Performing Lab:[facility] [place], [address] [place] [address], Phone - [phone], Director - [facility] Notes/Report: WBC 8.3 3.4-10.8 x10E3/uL RBC 4.91 [...] % Immature Grans (Abs) 0.0 0.0-0.1 x10E3/uL Vitamin D, 25-Hydroxy* Reviewed date:10/05/2024 04:06:08 PM Interpretation: Performing Lab:[facility] [place], [address] [facility], Phone - [phone], Director - [facility] Notes/Report: Vitamin D, 25-Hydroxy 14.8 30.0-100.0 ng/mL Vitamin D deficiency has been defined by the [place] of [employer] and an Endocrine Society practice guideline as a level of serum 25-OH vitamin D less than 20 ng/mL (1,2). The Endocrine Society went on to further define vitamin D insufficiency as a level between 21 and 29 ng/mL (2). 1. IOM ([place] of Medicine). 2010. Dietary reference intakes for calcium and D. [place]: The National Academies Press. 2. Silvano MF, Christy TREVINO, Gaston COLUNGA, et al. Evaluation, treatment, and prevention of vitamin D deficiency: an Endocrine Society clinical practice guideline. JCEM. 2010; 96(7):1911-30. TSH+Free T4* Reviewed date:10/05/2024 04:06:08 PM Interpretation: Performing Lab:[facility] [place], [address] [facility], Phone - [phone], Director - [facility] Notes/Report: TSH 6.680 0.450-4.500 uIU/mL T4,Free(Direct) 0.88 0.82-1.77 ng/dL Reason For Referral Reason Patient needs and wa nts therapy services. Diagnosis 1 Bipolar 1 disorder, manic, moderate (F31.12) Diagnosis 2 PTSD (post-traumatic stress disorder) (F43.10) Referral Organization [facility] Referring Provider First Name Jillian Referring Provider Last Name Taniya Referring Provider Speciality Psychiatry Ref[facility] Provider [facility] General Notes I[facility] Client- Please help set up therapy through central access Referral Priority Routine Medications Medication SIG (Take, Route, Frequency, Duration) Notes Start Date End Date Status Vitamin D (Ergocalciferol) 51840 UNIT 1 capsule Orally once a week [...] Status W/U Status Risk Notes Problem Hypothyroidism (37241518) Other specified hypothyroidism (E03.8) Active confirmed Problem Vitamin deficiency (59999019) Vitamin deficiency, unspecified (E56.9) Active confirmed Problem Metabolic syndrome (723923603) Metabolic syndrome (E88.81) Active confirmed Problem Insomnia (133163630) Insomnia (G47.00) Active confirmed Problem Posttraumatic stress disorder (19786631) PTSD (post-traumatic stress disorder) (F43.10) Active confirmed Problem Anxiety (59102797) Anxiety (F41.9) Active confirmed Problem Attention deficit hyperactivity disorder (249809900) ADHD (attention deficit hyperactivity disorder) (F90.9) Active confirmed Problem Bipolar 1 disorder (138983305) Bipolar 1 disorder (F31.9) Active confirmed Problem Vitamin D deficiency (92207258) Vitamin D deficiency (E55.9) Active confirmed Problem Morbid obesity (293577617) Morbid obesity (E66.01) Active confirmed Problem Overweight (787223771) Over weight (E66.3) Active confirmed Problem Recurrent major depression in remission (96618687) Recurrent major depressive disorder, in partial remission (F33.41) 05/14/19 17 Active confirmed Problem Sleep apnea (11615520) Observed sleep apnea (G47.30) Active confirmed Problem Bipolar affective disorder, currently manic, moderate (660959081) Bipolar 1 disorder, manic, moderate (F31.12) 01/14/20 17 Active confirmed Problem Daytime somnolence (983447218306) Excessive daytime sleepiness (G47.19) Active confirmed Problem Seasonal allergic rhinitis (915396178) Seasonal allergic rhinitis, unspecified trigger (J30.2) Active confirmed Problem Cocaine use disorder (8840129244) Cocaine use disorder (F14.10) Active confirmed Problem History of cancer of uterine body (782962145) History of uterine cancer (Z85.42) Active confirmed Problem Cannabis dependence (80555685) Cannabis use disorder, moderate, dependence (F12.20) Active confirmed Vital Signs Heart Rate 87 /min 09/28/2024 Temperature 98.2 degrees Fahrenheit 06/23/2024 Respiratory Rate 16 /min 09/28/2024 Blood pressure diastolic 86 mm Hg 09/28/2024 Oximetry 98 % 09/28/2024 Height 64 in 09/28/2024 Blood pressure systolic 120 mm Hg 09/28/2024 Weight 230.6 lbs 09/28/2024 BMI 39.58 kg/m2 09/28/2024 Encounters Encounter Location Date Provider Diagnosis [facility] [address] [place] [address] 05/19/2024 Jennifer Gaines [facility] [address] [facility] [place] [address] 09/29/2024 Nazia Carr [address] [address] 10/28/2023 Jillian Monahan PTSD (post-traumatic stress disorder) F43.10 ; Bipolar 1 disorder F31.9 ; ADHD (attention deficit hyperactivity disorder) F90.9 and Insomnia G47.[address] [address] 11/26/2023 Jillian Monahan PTSD (post-traumatic stress disorder) F43.10 ; Bipolar 1 disorder F31.9 ; ADHD (attention deficit hyperactivity disorder) F90.9 ; Insomnia G47.00 ; Nutritional counseling Z71.3 and Medication management Z79.[address] [address] 12/23/2023 Jillian Monahan PTSD (post-traumatic stress disorder) F43.10 ; ADHD (attention deficit hyperactivity disorder) F90.9 ; Bipolar 1 disorder F31.9 ; Insomnia G47.00 ; Nutritional counseling Z71.3 and Medication management Z79.[address] [address] 01/28/2024 Jillian Monahan PTSD (post-traumatic stress disorder) F43.10 ; ADHD (attention deficit hyperactivity disorder) F90.9 ; Bipolar 1 disorder F31.9 ; Insomnia G47.00 ; Nutritional counseling Z71.3 and Medication management Z79.[address] [address] 03/29/2024 Jillian Monahan PTSD (post-traumatic stress disorder) F43.10 ; ADHD (attention deficit hyperactivity disorder) F90.9 ; Bipolar 1 disorder F31.9 ; Insomnia G47.00 ; Nutritional counseling Z71.3 and Medication management Z79.[address] [address] 04/28/2024 Jillian Monahan PTSD (post-traumatic stress disorder) F43.10 ; ADHD (attention deficit hyperactivity disorder) F90.9 ; Bipolar 1 disorder F31.9 ; Insomnia G47.00 and Medication management Z79.899 [place] [address] [place] [address] 05/17/2024 Jennifer Gaines [facility] new doctor, encounter for Z71.89 ; Screening for deficiency anemia Z13.0 ; Screening for metabolic disorder Z13.228 ; Screening for thyroid disorder Z13.29 ; Screening for diabetes mellitus Z13.1 ; Screening for hyperlipidemia Z13.220 ; Exposure to potential infection Z20.9 ; History of uterine cancer Z85.42 and Cocaine use disorder F14.[address] [address] 06/23/2024 Jillian Monahan PTSD (post-traumatic stress disorder) F43.10 ; ADHD (attention deficit hyperactivity disorder) F90.9 ; Bipolar 1 disorder F31.9 ; Insomnia G47.00 ; Medication management Z79.899 and Nutritional counseling Z71.[address] [address] 09/08/2024 Jillian Monahan Bipolar 1 disorder F31.9 ; ADHD (attention deficit hyperactivity disorder) F90.9 ; PTSD (post-traumatic stress disorder) F43.10 ; Insomnia G47.00 ; Cocaine use disorder F14.10 ; Anxiety F41.9 and Medication management Z79.[address] [address] 09/21/2024 Jillian Monahan ADHD (attention deficit hyperactivity disorder) F90.9 ; Bipolar 1 disorder F31.9 ; PTSD (post-traumatic stress disorder) F43.10 ; Insomnia G47.00 ; Cocaine use disorder F14.10 ; Anxiety F41.9 and Medication management Z79.899 [facility] [address] [place] [address] 09/28/2024 Nazia Carr Vitamin D deficiency E55.9 ; Adult general medical exam Z00.00 ; Screening for hypothyroidism Z13.29 ; Over weight E66.3 ; Screening for hyperlipidemia Z13.220 ; Screening for metabolic disorder Z13.228 ; Screening for deficiency anemia Z13.0 ; Screening for diabetes mellitus Z13.1 and Exposure to potential infection Z20.[address] [address] 10/21/2023 Jillian Monahan Bipolar 1 disorder F31.9 ; PTSD (post-traumatic stress disorder) F43.10 ; ADHD (attention deficit hyperactivity disorder) F90.9 and Insomnia G47.[address] [address] 02/23/2024 Jillian Monahan [address] [address] 02/24/2024 Jillian Monahan [address] [address] 02/29/2024 Jillian Monahan PTSD (post-traumatic stress disorder) F43.10 ; Insomnia G47.00 and ADHD (attention deficit hyperactivity disorder) F90.[address] [address] 03/07/2024 Jillian Monahan [address] [address] 03/08/2024 Jillian Monahan Bipolar 1 disorder F31.9 ; PTSD (post-traumatic stress disorder) F43.10 ; Insomnia G47.00 and ADHD (attention deficit hyperactivity disorder) F90.9 [facility] [address] [place] [address] 06/16/2024 Jennifer Gaines [facility] [address] [place] [address] 06/27/2024 Jennifer Gaines [address] [address] 07/26/2024 Jillian Monahan [address] [address] 08/02/2024 Jillian Monahan [address] [address] 08/08/[address] [address] 08/29/[address] [address] 09/05/[address] [address] 10/04/2024 Nazia Carr Prediabetes R73.09 and Vitamin [...] or be administered own oral medications per [facility] protocols. Provided informed consent with understanding of [...] or be administered own oral medications per [facility] protocols. Provided informed consent with understanding of [...] or be administered own oral medications per [facility] protocols. Provided informed consent with understanding of side effects, adverse effects, risks and benefits as well as alternative treatments as previously discussed and with the above recommended medications & other aspects of the treatment program. Agrees to return sooner if symptoms worsen or suicidal or homicidal ideations occur. Continue psychotherapy as scheduled. May self-administer medications or be administered own oral medications per [facility] protocols. Provided informed consent with understanding of [...] or be administered own oral medications per [facility] protocols. Provided informed consent with understanding of [...] or be administered own oral medications per [facility] protocols. Provided informed consent with understanding of [...] or be administered own oral medications per [facility] protocols. Provided informed consent with understanding of [...] or be administered own oral medications per [facility] protocols. Provided informed consent with understanding of [...] or be administered own oral medications per [facility] protocols. Provided informed consent with understanding of [...] or be administered own oral medications per [facility] protocols. Provided informed consent with understanding of [...] may self-administer their own oral medications per [facility] Protocol. 09/28/2024 Other Complications of uncontrolled Diabetes reviewed including: renal, cardiovascular, neurological and opthalmological. Importance of lifestyle changes including low CHO diet and exercise as tolerated. Importance of BS monitoring discussed. Target BS 90-130 and to call if persistently <70 or >300. Plan Of Treatment Next Appt Details Provider Name:Jillian Moreno md, 10/24/2024 04:30:00 PM, [address] [facility] , [place], [address], Insurance Providers Payer Name Payer Address Payer Phone Subscriber Number Group Number Insured Name Patient Relationship to Insured Coverage Start Date Coverage End Date [facility] Attn Claims Department [address] [place] [phone] [id number] Hilaria Teixeira Self - patient is the insured 7 [facility] Attn Claims Department [address] [place] [phone] [id number] Hilaria Teixeira Self - patient is the insured 1 Medical (General) History Medical History History ICD Code obesity prediabetes dyslipidemia metabolic syndrome Mood disorder Bipolar seasonal allergies cancer-uterine Surgical History Surgery Date(Month/Year) hysterectomy 11/2022 Hospitalization History Reason Date(Month/Year) Child 04/2014 5d [facility] 08/2024
--- OUTSIDE RECORDS SUMMARY | 2024-10-20 08:30 | XMS_ITS | Encounter Summary ---
Author Organization [facility] Address [address] [place] [address] Care Team Providers Care Software Requirements Engineer Name Role Phone Smiley Camarillo DO Primary Care Provider Smiley Camarillo DO Unavailable [phone] Reason for Visit * Reason Onset Date Comments Concerns 12/10/2022 Encounter Details Date Type Department Care Team (Late st Contact Info) Description 12/10/2022 Telephone [facility] - ROLLING MILL OPERATOR [address] [facility] [address] [place] [address] Chris Herbert MD [address] [facility] [address] [place] [address] Concerns Social History Tobacco Use [...] about patient incision that is bleeding. CB# [phone] documented in this encounter Plan of Treatment Upcoming Encounters Date Type Department Care Team (Late st Contact Info) Description 02/08/2025 3:30 PM MOTORCYCLE ASSEMBLER Office Visit [facility] - ROLLING MILL OPERATOR [address] [facility] [address] [place] [address] Chris Herbert MD [address] [facility] [address] [place] [address] documented as of this encounter Visit Diagnoses Not on filedocumented in this encounter Care Teams Software Requirements Engineer Relationship Specialty Start Date End Date Smiley Camarillo DO [address] [place] [phone] PCP - General Obstetrics and Gynecology 07/19/21 Smiley Camarillo DO [address] [place] [address] Obstetrics and Gynecology 07/19/21 documented as of this encounter
--- OUTSIDE RECORDS SUMMARY | 2024-10-20 08:31 | XMS_ITS ---
Author Organization [facility] Address [address] [place] [address] Care Team Providers Care Director Toxicology Name Role Phone Jillian Monahan Primary Care Provider Kiana Worley Unavailable [phone] REASON FOR VISIT 2 week fu Social History Sex Assigned At : Social History Observation Description Sex Assigned At Female Encounters Encounter Location Date Provider Diagnosis [address] [place] [address] 10/13/2024 Jillian Monahan Plan Of Treatment Next Appt Details Provider Name:Jillian ragsdale, 10/24/2024 04:30:00 PM, [address] [place] [address], [address], Progress Notes * Hilaria TOLENTINODOB:[birth year] (29 yo F)Acc No.[id number]:10/13/2024 UNLOCKED PROGRESS NOTE Patient: Hilaria ORELLANA Provider: Dunia Monahan DNP, STREETCAR MOTORMAN, PMHNP-BC :1995 A ge:29 Y S ex:Female Date:10/13/2024 Address:[address], [place] Subjective: * Chief Complaints: * 1 . 2 week fu. * Medical History: Objective: * Vitals: Assessment: Plan: * Treatment: * * Electronic signature of Chyna Bravo , [id number] on 10/20/2024 at 08:30 AM CDT Sign off status: Pending * Provider: Dunia Monahan DNP, STREETCAR MOTORMAN, PMHNP- Date: 10/13/2024 Generated for Printing/Faxing/eTransmitting on: 10/20/2024 08:30 AM CDT
--- OUTSIDE RECORDS SUMMARY | 2024-10-20 08:31 | XMS_ITS ---
Author Organization [facility] Address [address] [place] [address] Care Team Providers Care Combination Saw Operator Name Role Phone Jillian Monahan Primary Care Provider Kiana Worley Unavailable [phone] Nazia Carr Unavailable REASON FOR VISIT labs Social History Sex Assigned At : Social History Observation Description Sex Assigned At Female Encounters Encounter Location Date Provider Diagnosis [place] [address] [place] [address] 09/29/2024 Nazia Carr Plan Of Treatment Next Appt Details Provider Name:Jillian Moreno pa, 10/24/2024 04:30:00 PM, [address] [facility] [place], [address], Progress Notes * Hilaria TOLENTINODOB:[birth year] (29 yo F)Acc No.[id number]:09/29/2024 UNLOCKED PROGRESS NOTE Patient: Hilaria ORELLANA Provider: Rosalia Carr, MSN, PAYROLL AUDITOR, SHIRT SEWER-BC, SHIRT SEWER-C :1995 A ge:29 Y S ex:Female Date:09/29/2024 Address:[address] [place], [place] Pcp:Jillian Monahan Check In:10:35 AM PRODUCTION REPRODUCTION MANAGER Subjective: * Chief Complaints: * 1 . Labs. * Medical History: Objective: * Vitals: Assessment: Plan: * Treatment: * * Electronic signature of Fish Carr APRN, [id number] on 10/20/2024 at 08:30 AM CDT Sign off status: Pending * Provider: Rosalia Carr, ANGEL, PAYROLL AUDITOR, SHIRT SEWER-BC, SHIRT SEWER-C Date: 0 09/29/2024 Generated for Printing/Faxing/eTransmitting on: 0 10/20/2024 08:30 AM CDT
== END 2024-10-20 08:26 | disposition home or self-care (01) ==
LOC: ANHIMG 08:28
PROVIDERS: Visit Provider Nurse Practitioner
DX: R59.0 Localized enlarged lymph nodes (principal)
CPT/HCPCS: 76882